=== PATIENT | male | born 1955 | race Caucasian/White ===

== ENCOUNTER → 2021-02-09 | Outpatient (CLI) | payer MEDICARE, SELFPAY ==
[2021-02-09 22:31] LABS: Absolute Lymphocyte Count 0.95 X10^3/uL (0.83-4.51); Absolute Neutrophil Count 4.9 X10^3/uL (2.0-7.7); Basophil# 0.02 X10^3/uL; Basophil% 0.3 % (0-1); Eosinophils% 4.5 % (0-5); Hematocrit 34.6 % (40-54); Hemoglobin 11.2 g/dL (13.0-16.5); Lymphocyte # 0.95 X10^3/ul (0.83-4.51); Lymphocyte % 14.1 % (19-41); Mean Corp Hgb Conc 32.4 g/dL (32-36); Mean Corpuscular Hgb 26.6 pg (27.0-32.0); Mean Corpuscular Volume 82.2 fL (80-94); Mean Platelet Vol. 9.3 fl (6.2-12.0); Monocyte# 0.57 X10^3/uL; Monocyte% 8.5 % (0-10); NRBC Flagged by Analyzer 0 % (0-5); Neutrophil # 4.85 X10^3/uL (2.7-7.7); Neutrophil % 71.9 % (47-70); Platelet Count 476 K/mm3 (150-450); RBC Distribution Width CV 14.5 % (11.6-14.6); RBC Distribution Width SD 43.6 fl (35.1-43.9); Red Blood Count 4.21 M/mm3 (4.6-6.2); White Blood Count 6.7 K/mm3 (4.4-11.0)
[2021-02-09 22:51] LABS: ALB/GLOB Ratio 0.7 RATIO (0.9-2.4); AST(SGOT) 54 U/L (15-37); Alanine Aminotransfer ALT/SGPT 54 U/L (16-61); Albumin, Serum 3.1 g/dL (3.2-5.0); Alkaline Phosphatase 80 U/L (45-117); Anion Gap 10 (5-15); BUN 19 mg/dL (7-18); BUN/Creat Ratio 13.9 RATIO (10-20); Calcium,Total 9.2 mg/dL (8.5-10.1); Chloride 100 mmol/L (98-107); Cholesterol 92 mg/dL (200); Creatinine, Serum 1.37 mg/dL (0.70-1.30); EST Glomerular Filtration Rate 55 mL/min (>60); Est Glom Filt Rate - Afr Amer 67 mL/min (>60); Globulin 4.6 g/dL (2.2-4.2); Glucose 105 mg/dL (74-106); High Density Lipoprotein 28 mg/dL; Potassium 4.7 mmol/L (3.5-5.1); Protein, Total 7.7 g/dL (6.4-8.2); Sodium Level 133 mmol/L (136-145); Thyroid Stim Hormone (TSH) 4.94 uIU/mL (0.358-3.74); Triglycerides 107 mg/dL; Very Low Density Lipoprotein 21 mg/dL (5-40)
[2021-02-09 22:57] LABS: Hemoglobin A1c 6.1 % (3.8-5.6)
[2021-02-11 16:09] LABS: Endomysial Antibody IgA Negative (Negative)
[2021-02-11 16:48] LABS: Deamidated Gliadin IgA 5 units (0-19); Deamidated Gliadin IgG 2 units (0-19); Immunoglobulin A 218 mg/dL (61-437); t-Transglutaminase IgA <2 U/mL (0-3)
== END | disposition home or self-care (01) ==
PROVIDERS: PCP Nurse Practitioner; Referring Provider Nurse Practitioner; Visit Provider Nurse Practitioner
DX: D64.9 Anemia, unspecified (principal); R63.4 Abnormal weight loss; R06.02 Shortness of breath; I10 Essential (primary) hypertension; R10.13 Epigastric pain; R10.30 Lower abdominal pain, unspecified; R63.1 Polydipsia; Z79.899 Other long term (current) drug therapy
CPT/HCPCS: 80053; 80061; 82784; 83036; 83516; 84443; 85025; 86255

== ENCOUNTER → 2021-03-02 | Outpatient (CLI) | payer MEDICARE, SELFPAY ==
[2021-03-02 23:32] LABS: Absolute Lymphocyte Count 0.96 X10^3/uL (0.83-4.51); Absolute Neutrophil Count 3.8 X10^3/uL (2.0-7.7); Basophil# 0.02 X10^3/uL; Basophil% 0.4 % (0-1); Eosinophil# 0.18 X10^3/uL; Eosinophils% 3.2 % (0-5); Hematocrit 35.4 % (40-54); Hemoglobin 11.8 g/dL (13.0-16.5); Lymphocyte # 0.96 X10^3/ul (0.83-4.51); Lymphocyte % 17.2 % (19-41); Mean Corp Hgb Conc 33.3 g/dL (32-36); Mean Corpuscular Hgb 27.3 pg (27.0-32.0); Mean Corpuscular Volume 81.8 fL (80-94); Mean Platelet Vol. 9.4 fl (6.2-12.0); Monocyte# 0.55 X10^3/uL; Monocyte% 9.9 % (0-10); NRBC Flagged by Analyzer 0 % (0-5); Neutrophil # 3.84 X10^3/uL (2.7-7.7); Neutrophil % 68.8 % (47-70); Platelet Count 480 K/mm3 (150-450); RBC Distribution Width CV 14.9 % (11.6-14.6); RBC Distribution Width SD 44.2 fl (35.1-43.9); Red Blood Count 4.33 M/mm3 (4.6-6.2); White Blood Count 5.6 K/mm3 (4.4-11.0)
[2021-03-02 23:38] LABS: ALB/GLOB Ratio 0.6 RATIO (0.9-2.4); AST(SGOT) 52 U/L (15-37); Alanine Aminotransfer ALT/SGPT 80 U/L (16-61); Albumin, Serum 2.9 g/dL (3.2-5.0); Alkaline Phosphatase 125 U/L (45-117); Anion Gap 9 (5-15); BUN 17 mg/dL (7-18); CRP 7.05 mg/L (0.0-3.0); Calcium,Total 9.1 mg/dL (8.5-10.1); Chloride 103 mmol/L (98-107); EST Glomerular Filtration Rate 79 mL/min (>60); Est Glom Filt Rate - Afr Amer 96 mL/min (>60); Globulin 4.5 g/dL (2.2-4.2); Glucose 90 mg/dL (74-106); Potassium 4.6 mmol/L (3.5-5.1); Protein, Total 7.4 g/dL (6.4-8.2); Sodium Level 137 mmol/L (136-145); T4 Free Direct 1.31 ng/dL (0.76-1.46); Thyroid Stim Hormone (TSH) 2.44 uIU/mL (0.358-3.74)
[2021-03-03 07:53] LABS: PTHIN 24.3 pg/mL (18.4-80.1)
[2021-03-04 15:08] LABS: ANTINUCLEAR ANTIBODIES DIRECT Positive (Negative); Anti-Centromere B Ab <0.2 AI (0.0-0.9); Anti-Chromatin <0.2 AI (0.0-0.9); Anti-Jo <0.2 AI (0.0-0.9); Anti-Scleroderma-70 AB <0.2 AI (0.0-0.9); RNP Ab 0.2 AI (0.0-0.9); SJOGREN'S Anti-SS-A test 6.1 AI (0.0-0.9); SJOGREN'S Anti-SS-B test < 0.2 AI (0.0-0.9); Smith Ab <0.2 AI (0.0-0.9)
[2021-03-04 16:06] LABS: Anti-dsDNA Ab 2 IU/mL (0-9)
== END | disposition home or self-care (01) ==
PROVIDERS: PCP Nurse Practitioner; Referring Provider Nurse Practitioner; Visit Provider Nurse Practitioner
DX: I10 Essential (primary) hypertension (principal); M54.2 Cervicalgia; E03.9 Hypothyroidism, unspecified; D64.9 Anemia, unspecified
CPT/HCPCS: 80053; 83970; 84439; 84443; 85025; 86038; 86140; 86225; 86235; 86431

== ENCOUNTER → 2021-04-16 17:51 | Outpatient (CLI) | payer MEDICARE, MEDICAID, SELFPAY ==
--- NOTE | 2021-04-16 17:52 | MRI_ITS ---
EXAM: MR CERVICAL SPINE WITHOUT INTRAVENOUS CONTRAST CLINICAL INDICATION: cervical pain TECHNIQUE: Multiplanar and multisequence MR images of the cervical spine without intravenous contrast were performed. This report was created using [email or web address] report [employer] technology. COMPARISON: None. FINDINGS: VERTEBRAE: Loss of intervertebral disc height. There is endplate spondylosis of the vertebral body. Normal central canal and intervertebral neuroforamina. There is bilateral facet arthropathy. C3-4: Loss of intervertebral disc height. There is endplate spondylosis of the vertebral body. Normal central canal and intervertebral neuroforamina. There is bilateral facet arthropathy. Posterior disc bulge osteophyte complex. C5-6: Loss of intervertebral disc height. There is endplate spondylosis of the vertebral body. Normal central canal and intervertebral neuroforamina. There is bilateral facet arthropathy. Posterior disc bulge osteophyte complex. C6-7: Loss of intervertebral disc height. There is endplate spondylosis of the vertebral body. Normal central canal and intervertebral neuroforamina. There is bilateral facet arthropathy. Posterior disc bulge osteophyte complex. SPINAL CORD: Unremarkable in signal and morphology. SOFT TISSUES: Unremarkable. No prevertebral soft tissue swelling. LYMPH NODES: Unremarkable. There is no cervical adenopathy. DISCS/SPINAL CANAL/NEURAL FORAMINA: C7-T1: Loss of intervertebral disc height. There is endplate spondylosis of the vertebral body. Narrowing of the bilateral intervertebral neuroforamina. There is bilateral facet arthropathy. Grade 1 anterolisthesis of C7 on T1. Distance measures 3 mm. MRI/Spine Cervical (Routine) IMPRESSION: Multilevel degenerative findings in the cervical spine. Electronically Signed: Alhaji Valladares MD at 19:38 EST , Service support ,
== END ==
PROVIDERS: PCP Nurse Practitioner; Referring Provider Orthopaedic Surgery; Visit Provider Orthopaedic Surgery
DX: M47.22 Other spondylosis with radiculopathy, cervical region (principal)
CPT/HCPCS: 72141

== ENCOUNTER 2021-05-28 22:28 | Outpatient (CLI) | payer MEDICARE, MEDICAID, SELFPAY | END 2021-05-28 23:59 | disposition short-term general hospital (02) | LOC: LABSPEC 22:32 | PROVIDERS: PCP Nurse Practitioner; Visit Provider Nurse Practitioner | DX: E03.9 Hypothyroidism, unspecified (principal) | CPT/HCPCS: 84443 ==

== ENCOUNTER 2021-06-08 14:05 | Outpatient (CLI) | payer MEDICARE, MEDICAID, SELFPAY ==
--- NOTE | 2021-06-08 14:09 | RAD_ITS ---
STUDY: X-RAY - LUMBAR SPINE REASON FOR EXAM: Male, 65 years old. BACK PAIN/LEG PAIN TECHNIQUE: 2 view(s) of the lumbar spine were obtained. COMPARISON: None FINDINGS: Normal lumbar lordosis. There is a mild dextroscoliosis of the lumbar spine. There is a normal alignment of the vertebrae. There is multilevel endplate spondylosis of the lumbar vertebrae. There is multi-level degenerative disc disease with multi-level disc space narrowing. There is atherosclerotic calcification of the abdominal aorta without a demonstrated aneurysm. RAD/Lumbar Spine 2 or 3 Views IMPRESSION: Degenerative changes of the spine, as detailed above. Electronically Signed: Raymundo Joaquin MD at 15:54 EST ,
== END 2021-06-08 23:59 | disposition short-term general hospital (02) ==
LOC: RAD 14:08
PROVIDERS: PCP Nurse Practitioner; Referring Provider Anesthesiology Pain Medicine; Visit Provider Anesthesiology Pain Medicine
DX: M54.9 Dorsalgia, unspecified (principal); M79.606 Pain in leg, unspecified
CPT/HCPCS: 72100

== ENCOUNTER 2021-07-20 13:35 | Emergency (ER) | payer MEDICARE, MEDICAID, SELFPAY ==
[2021-07-20 13:36] VITALS: BP 116/100; PULSE 96; RESP 17; TEMP 36.1; O2SAT 97; BMI 25.8
--- NOTE | 2021-07-20 14:57 | US_ITS ---
INDICATION: Left testicular tender mass upper pole EXAMINATION: Ultrasound US Scrotum (Contents) TECHNIQUE: Realtime ultrasound of the testicles was performed with grayscale, Color Doppler and spectral Doppler analysis. COMPARISON: None. FINDINGS: RIGHT: TESTIS: 4.3 x 2.4 x 3.1 cm. Normal in size and echotexture, without focal lesion. COLOR DOPPLER: Normal arterial flow present in the testicle with monophasic waveforms. EPIDIDYMIS: 0.9 x 0.7 x 1.2 cm. Normal in size and echotexture, without focal lesion. [Normal color Doppler flow pattern in the epididymis. HYDROCELE: None. VARICOCELE: None. LEFT: TESTIS: 3.6 x 2.8 x 2.8 cm. Normal in size and echotexture, without focal lesion. COLOR DOPPLER: Normal arterial flow present in the testicle with monophasic waveforms. EPIDIDYMIS: 1.5 x 1.9 x 1.3 cm. Slightly asymmetrically enlarged when compared to the right. [Mild increased vascularity. 0.9 cm left epididymal head cyst. HYDROCELE: Small left-sided hydrocele. VARICOCELE: None. US/Testicular with Arterial Flow IMPRESSION: 1. Findings suggestive of left-sided epididymitis. 2. 0.9 cm left epididymal head cyst. 3. Small left-sided hydrocele, likely reactive. Electronically Signed: Jorge Carrera, at 16:05 EDT ,
--- NOTE | 2021-07-20 14:58 | EDS_ITS ---
HPI History of Present Illness Chief Complaint: Male Pain/Injury Informant: patient Narrative Narrative: Patient presents with a hard tender spot on his left testicle. He thinks is been hurting for about a week. But he has noticed the spot only a couple days. Nothing makes it better or worse. Patient does have frequent nocturia but this is not new or different in any way. He has no dysuria urgency or blood in the urine. He gets some lower abdominal cramping and pain but has been getting this for 1 to 2 years. It is not present now. It has not changed recently. He has had colonoscopy and endoscopy. Last for about a year ago. He has had scans and blood work. No ones ever found the source of that. He also has frequent lower back pain but is not on any routine pain meds. [facility] Medical History Abnormal colonoscopy Anemia COPD exacerbation Diverticulitis Hypertension Leg cramps Osteoarthritis of both shoulders Home Medications hydroxychloroquine 200 mg tablet 200 mg PO BID #60 tab 03/05/21 [Rx Last Taken Unknown] losartan 100 mg tablet 100 mg PO DAILY 05/28/21 [History Last Taken Unknown] levothyroxine 75 mcg tablet 75 mcg PO QDAY #90 tab 05/29/21 [Rx Last Taken Unknown] budesonide 160 mcg-glycopyr 9 mcg-formot 4.8 mcg/actuation HFA inhaler 2 inh I NHALATION BID #10.7 g 06/01/21 [Rx Last Taken Unknown] albuterol sulfate 90 mcg/actuation aerosol inhaler 2 puff INHALATION Q4H PRN #8.5 g 06/02/21 [Rx Last Taken Unknown] prednisone 10 mg tablet 20 mg PO BID PRN 4 Days #30 tab 06/23/21 [Rx Last Taken Unknown] doxycycline monohydrate 100 mg PO BID #20 cap 07/20/21 [Rx Last Taken Unknown] tramadol 50 mg PO Q6H PRN 3 Days #10 tab 07/20/21 [Rx Last Taken Unknown] Allergy/AdvReac Type Severity Reaction Status Date / Time No Known Allergies Allergy Verified 07/20/21 13:35 Family History Father , 70,s Lung cancer Mother , 60,s CVA (cerebral vascular accident) Surgical History History of endoscopy Social History Smoking Status: Former smoker quit date: 03/08/18 alcohol intake: current details: social substance use type: does not use ROS ROS ED Constitutional Constitutional ED: Denies chills or fever(s) ENT ENT ED: Denies rhinorrhea or sore throat Cardiovascular Cardiovascular: Denies chest pain or palpitations Respiratory/Chest Respiratory/Chest: Denies cough or dyspnea Gastrointestinal Gastrointestinal: Denies diarrhea, melena, nausea or vomiting Genitourinary Genitourinary ED: Reports other Details: See history of present illness. ; Denies dysuria or hematuria Musculoskeletal Musculoskeletal: Reports back pain Integumentary Denies rash Neurologic Neurologic: Denies headache(s), paresthesias or weakness Endocrine Endocrinology: Denies polydipsia or polyuria Hematologic/Lymphatic Hematologic/Lymphatic: Denies easy bleeding or easy bruising Allergic/Immunologic Allergic/Immunologic ED: Denies urticaria EXAM Physical Exam Const Vital Signs: 07/20/21 13:36 Temperature 96.9 F L Temperature Source Oral Pulse Rate 96 Respiratory Rate 17 Blood Pressure 116/100 H Blood Pressure Mean 105 Pulse Ox 97 Oxygen Delivery Method Room Air Positive well nourished and well developed General Appearance ED: well developed and NAD HEENT Reports moist mucous membranes Eyes General Eye ED: Negative for pale conjunctiva or scleral icterus Neck no JVD Resp normal respiratory effort and clear to auscultation bilaterally Cardio regular rate and regular rhythm GI non-tender, non-distended and no masses GI Narrative: Abdomen is overall quite benign. Although he has pain that radiates into the left inguinal region there is no tenderness or fullness there. No sign of hernia. Auscultation: normoactive bowel sounds; Negative for hyperactive bowel sounds or hypoactive bowel sounds Palpation: soft Rectal Exam: Negative for tenderness Narrative: exam looks normal from the outside. Testicle and epididymis do not seem enlarged. But there is a firm hard area about a centimeter around on the upper portion of the left testicle. Penis: normal penis Back/Spine no CVA tenderness Extremity normal to inspection General Extremety ED: Negative for edema General Extremity: Negative for edema Neuro oriented x3 Sensorium / Orientation: alert Psych mental status grossly normal Skin Rashes: no rashes MDM MDM MDM Narrative Medical decision making narrative: Patient's urinalysis shows no white cells or red cells. It is overall clear. Ultrasound showed some epididymitis and a epididymal cyst that is likely what I am feeling. We will treat the patient for this. We discussed follow-up including with urology. We discussed reasons to return. Lab Data Attestation: I reviewed the patient's lab results. Labs: Laboratory Results - last 24 hr 07/20/21 14:45 Urine Color Vandana Urine Clarity Clear Urine pH 6.5 Ur Specific Letha 1.015 Urine Protein 30 H Urine Glucose (UA) Normal Urine Ketones 5 H Urine Occult Blood Negative Urine Nitrite Negative Urine Bilirubin 1 H Urine Urobilinogen 1 H Ur Leukocyte Esterase 25 H Urine RBC 0 SEEN Urine WBC 0-5 SEEN Ur Squamous Epith Cells 0-5 SEEN Urine Bacteria 1+ Urine Mucus 0 SEEN Radiography Diagnostic Testing: Clinical Impression(s) from Imaging Studies Testicular Ultrasound 07/20/21 14:57 IMPRESSION: 1. Findings suggestive of left-sided epididymitis. 2. 0.9 cm left epididymal head cyst. 3. Small left-sided hydrocele, likely reactive. Electronically Signed: Jorge Carrera, at 16:05 EDT , Discharge Plan Triage Chief Complaint: Male Pain/Injury ED Provider: Molina Foote Dx/Rx/DC Orders Clinical Impression: Epididymitis, left Instructions: ED Epididymitis Prescriptions: New tramadol 50 mg tablet 50 mg PO Q6H PRN (Reason: pain) 3 Days Qty: 10 RF: 0 doxycycline monohydrate 100 MG capsule 100 mg PO BID Qty: 20 RF: 0 No Action losartan 100 mg tablet 100 mg PO DAILY RF: 0 levothyroxine 75 mcg tablet 75 mcg PO QDAY Qty: 90 RF: 3 Breztri Aerosphere 160-9-4.8 mcg/actuation HFA aerosol inhaler 2 inh inhalation BID Qty: 10.7 RF: 12 hydroxychloroquine 200 mg tablet 200 mg PO BID Qty: 60 RF: 12 albuterol sulfate [ProAir HFA] 90 mcg/actuation HFA aerosol inhaler 2 puff inhalation Q4H PRN (Reason: shortness of breath or wheezing) Qty: 8.5 RF: 12 prednisone 10 mg tablet 20 mg PO BID PRN (Reason: rash) 4 Days Qty: 30 RF: 1 Primary Care Provider: Sabrina Zavala NP Referrals: Sabrina Zavala NP, DIRECTOR OF CASINO-[facility] [Primary Care Provider] - Jerome Sutton MD [STAFF PHYSICIAN] - 1 Week Disposition Disposition: Home, Self Care
[2021-07-20 15:03] LABS: Mucous, Urine 0 SEEN /hpf (<or=2+); Red Blood Cells-Urine 0 SEEN /hpf (0-5)
[2021-07-20 15:11] LABS: Color, Urine Amber (Yellow); Glucose, Dipstick Normal (Normal); Ketone-Dipstick 5 mg/dl (Negative); Leukocyte Esterase-Dipstick 25 /ul (Negative); Nitrite-Dipstick Negative (Negative); Occult Blood-Urine Negative /ul (Negative); Protein-Dipstick 30 mg/dl (Negative); Specific Gravity, Urine 1.015 (1.002-1.030); Urine Clarity Clear (Clear); Urine Urobilinogen 1 mg/dl (Normal); Urine pH 6.5 (5.0 - 8.0)
[2021-07-20 15:12] LABS: Urine Bilirubin Dipstick 1 mg/dL (Negative)
[2021-07-20 15:20] LABS: Bacteria 1+ /hpf (None Seen); Squamous Epithelial Cells - UA 0-5 SEEN /hpf (0-5); White Blood Cells 0-5 SEEN /hpf (0-5)
== END 2021-07-20 17:18 | disposition home or self-care (01) ==
PROVIDERS: Emergency Provider Emergency Medicine; PCP Nurse Practitioner; Visit Provider Emergency Medicine
DX: N45.1 Epididymitis (principal); J44.9 Chronic obstructive pulmonary disease, unspecified; I10 Essential (primary) hypertension; R10.30 Lower abdominal pain, unspecified; M19.90 Unspecified osteoarthritis, unspecified site; Z87.891 Personal history of nicotine dependence
CPT/HCPCS: 76870; 81001; 93976; 99282

== ENCOUNTER 2021-08-25 13:59 | Outpatient (CLI) | payer MEDICARE, MEDICAID, SELFPAY ==
[2021-08-25 14:16] LABS: Absolute Lymphocyte Count 0.81 X10^3/uL (0.83-4.51); Absolute Neutrophil Count 4.8 X10^3/uL (2.0-7.7); Basophil# 0.03 X10^3/uL; Basophil% 0.5 % (0-1); Eosinophil# 0.05 X10^3/uL; Eosinophils% 0.8 % (0-5); Hematocrit 34.8 % (40-54); Hemoglobin 11.6 g/dL (13.0-16.5); Lymphocyte # 0.81 X10^3/ul (0.83-4.51); Lymphocyte % 12.8 % (19-41); Mean Corp Hgb Conc 33.3 g/dL (32-36); Mean Corpuscular Hgb 28.2 pg (27.0-32.0); Mean Corpuscular Volume 84.7 fL (80-94); Mean Platelet Vol. 9.5 fl (6.2-12.0); Monocyte# 0.66 X10^3/uL; Monocyte% 10.4 % (0-10); NRBC Flagged by Analyzer 0 % (0-5); Neutrophil # 4.75 X10^3/uL (2.7-7.7); Neutrophil % 74.9 % (47-70); Platelet Count 318 K/mm3 (150-450); RBC Distribution Width CV 15.6 % (11.6-14.6); Red Blood Count 4.11 M/mm3 (4.6-6.2); White Blood Count 6.3 K/mm3 (4.4-11.0)
[2021-08-25 14:43] LABS: Ferritin 404 ng/mL (26-388); Iron 58 ug/dL (65-175); Iron Binding Capacity,Total 239 ug/dL (250-450); PERCENT IRON SATURATION 24.3 % (15.0-55.0)
== END 2021-08-25 23:59 | disposition home or self-care (01) ==
LOC: LAB 14:04
PROVIDERS: PCP Nurse Practitioner; Visit Provider Nurse Practitioner Adult Health
DX: K57.92 Diverticulitis of intestine, part unspecified, without perforation or abscess without bleeding (principal); D64.9 Anemia, unspecified; R13.10 Dysphagia, unspecified
CPT/HCPCS: 36415; 82728; 83540; 83550; 85025

== ENCOUNTER → 2021-08-27 | Outpatient (CLI) | payer MEDICARE, MEDICAID, SELFPAY ==
[2021-08-27 21:47] LABS: Absolute Lymphocyte Count 0.72 X10^3/uL (0.83-4.51); Absolute Neutrophil Count 5.4 X10^3/uL (2.0-7.7); Basophil# 0.02 X10^3/uL; Basophil% 0.3 % (0-1); Eosinophil# 0.03 X10^3/uL; Eosinophils% 0.4 % (0-5); Hematocrit 33.3 % (40-54); Hemoglobin 11.1 g/dL (13.0-16.5); Lymphocyte # 0.72 X10^3/ul (0.83-4.51); Lymphocyte % 10.5 % (19-41); Mean Corp Hgb Conc 33.3 g/dL (32-36); Mean Corpuscular Hgb 28.5 pg (27.0-32.0); Mean Corpuscular Volume 85.4 fL (80-94); Mean Platelet Vol. 9.9 fl (6.2-12.0); Monocyte# 0.64 X10^3/uL; Monocyte% 9.3 % (0-10); NRBC Flagged by Analyzer 0 % (0-5); Neutrophil # 5.42 X10^3/uL (2.7-7.7); Neutrophil % 79.1 % (47-70); Platelet Count 305 K/mm3 (150-450); RBC Distribution Width CV 15.3 % (11.6-14.6); RBC Distribution Width SD 47.6 fl (35.1-43.9); White Blood Count 6.9 K/mm3 (4.4-11.0)
[2021-08-27 22:03] LABS: AST(SGOT) 29 U/L (15-37); Alanine Aminotransfer ALT/SGPT 34 U/L (16-61); Albumin, Serum 3.6 g/dL (3.2-5.0); Alkaline Phosphatase 64 U/L (45-117); Anion Gap 7 (5-15); BUN 23 mg/dL (7-18); BUN/Creat Ratio 22.8 RATIO (10-20); Calcium,Total 8.8 mg/dL (8.5-10.1); Chloride 106 mmol/L (98-107); Creatinine, Serum 1.01 mg/dL (0.70-1.30); EST Glomerular Filtration Rate 78 mL/min (>60); Est Glom Filt Rate - Afr Amer 95 mL/min (>60); Globulin 3.6 g/dL (2.2-4.2); Glucose 83 mg/dL (74-106); PSA,Total - Annual Screen 0.79 ng/mL (0.00-4.00); Potassium 4.1 mmol/L (3.5-5.1); Protein, Total 7.2 g/dL (6.4-8.2); Sodium Level 138 mmol/L (136-145)
== END | disposition home or self-care (01) ==
PROVIDERS: PCP Nurse Practitioner; Referring Provider Nurse Practitioner; Visit Provider Nurse Practitioner
DX: R35.0 Frequency of micturition (principal); D64.9 Anemia, unspecified; R80.9 Proteinuria, unspecified; Z12.5 Encounter for screening for malignant neoplasm of prostate
CPT/HCPCS: 80053; 84153; 85025; G0103

== ENCOUNTER → 2021-10-07 | Outpatient (CLI) | payer MEDICARE, MEDICAID, SELFPAY ==
[2021-10-07 21:53] LABS: Absolute Lymphocyte Count 0.78 X10^3/uL (0.83-4.51); Absolute Neutrophil Count 4.5 X10^3/uL (2.0-7.7); Basophil# 0.01 X10^3/uL; Basophil% 0.2 % (0-1); Eosinophils% 1.7 % (0-5); Hematocrit 32.9 % (40-54); Lymphocyte # 0.78 X10^3/ul (0.83-4.51); Lymphocyte % 13.1 % (19-41); Mean Corp Hgb Conc 33.4 g/dL (32-36); Mean Corpuscular Hgb 28.6 pg (27.0-32.0); Mean Corpuscular Volume 85.7 fL (80-94); Mean Platelet Vol. 9.5 fl (6.2-12.0); Monocyte# 0.52 X10^3/uL; Monocyte% 8.7 % (0-10); NRBC Flagged by Analyzer 0 % (0-5); Neutrophil # 4.52 X10^3/uL (2.7-7.7); Neutrophil % 75.8 % (47-70); Platelet Count 360 K/mm3 (150-450); RBC Distribution Width CV 14.6 % (11.6-14.6); RBC Distribution Width SD 45.3 fl (35.1-43.9); Red Blood Count 3.84 M/mm3 (4.6-6.2); Reticulocyte Count 1.54 % (0.5-1.5)
[2021-10-07 22:11] LABS: CRP, High Sensitivity Cardiac 3.71 mg/L
== END | disposition home or self-care (01) ==
PROVIDERS: PCP Nurse Practitioner; Visit Provider Nurse Practitioner
DX: D64.9 Anemia, unspecified (principal); R07.9 Chest pain, unspecified; E03.9 Hypothyroidism, unspecified
CPT/HCPCS: 84443; 85025; 85045; 86141

== ENCOUNTER → 2021-12-09 | Outpatient (CLI) | payer MEDICARE, MEDICAID, SELFPAY ==
[2021-12-09 23:10] LABS: PSA,Total- Diagnostic 0.93 ng/mL (0.0-4.0)
== END | disposition home or self-care (01) ==
PROVIDERS: PCP Nurse Practitioner; Visit Provider Nurse Practitioner
DX: R39.15 Urgency of urination (principal); S30.861S Insect bite (nonvenomous) of abdominal wall, sequela; W57.XXXS Bitten or stung by nonvenomous insect and other nonvenomous arthropods, sequela
CPT/HCPCS: 84153; 87070; 87205

== ENCOUNTER → 2022-03-18 | Outpatient (CLI) | payer MEDICARE, MEDICAID, SELFPAY ==
[2022-03-18 13:25] LABS: CRP 4.39 mg/L (0.0-3.0)
== END | disposition home or self-care (01) ==
LOC: LAB 12:26
PROVIDERS: PCP Nurse Practitioner; Visit Provider Internal Medicine Cardiovascular Disease
DX: I74.9 Embolism and thrombosis of unspecified artery (principal)
CPT/HCPCS: 36415; 86140

== ENCOUNTER → 2022-03-23 | Outpatient (CLI) | payer MEDICARE, MEDICAID, SELFPAY ==
[2022-03-23 17:50] LABS: Anion Gap 7 (5-15); BUN 19 mg/dL (7-18); BUN/Creat Ratio 21.5 RATIO (10-20); Calcium,Total 9.3 mg/dL (8.5-10.1); Chloride 105 mmol/L (98-107); Creatinine, Serum 0.88 mg/dL (0.70-1.30); EST Glomerular Filtration Rate 91 mL/min (>60); Est Glom Filt Rate - Afr Amer 110 mL/min (>60); Glucose 87 mg/dL (74-106); Sodium Level 138 mmol/L (136-145)
== END | disposition home or self-care (01) ==
LOC: LAB 16:13
PROVIDERS: PCP Nurse Practitioner; Visit Provider Internal Medicine Cardiovascular Disease
DX: I74.9 Embolism and thrombosis of unspecified artery (principal); R06.02 Shortness of breath
CPT/HCPCS: 36415; 80048

== ENCOUNTER → 2022-03-26 | Outpatient (CLI) | payer MEDICARE, MEDICAID, SELFPAY | END | disposition home or self-care (01) | PROVIDERS: PCP Nurse Practitioner; Referring Provider Internal Medicine Cardiovascular Disease; Visit Provider Internal Medicine Cardiovascular Disease | DX: R07.9 Chest pain, unspecified (principal); I74.9 Embolism and thrombosis of unspecified artery | CPT/HCPCS: 93225; 93226 ==

== ENCOUNTER → 2022-03-29 | Outpatient (CLI) | payer MEDICARE, MEDICAID, SELFPAY | END | disposition home or self-care (01) | LOC: CVS 05:58 | PROVIDERS: PCP Nurse Practitioner; Visit Provider Internal Medicine Cardiovascular Disease | DX: R94.31 Abnormal electrocardiogram [ECG] [EKG] (principal) | CPT/HCPCS: 78452; 93017; A9500; A4216 ==

== ENCOUNTER 2022-04-05 08:21 | Outpatient (CLI) | payer MEDICARE, MEDICAID, SELFPAY ==
--- NOTE | 2022-03-29 11:17 | STRESSREP_ITS ---
Stress Test Report Date: 03/29/2022 Procedure: Exercise tolerance test Indications: Preop cardiac risk assessment, dyspnea on exertion Consent: Per the patient Procedure: The patient exercised on a Abraham protocol for 5 minutes achieving a peak heart rate of 146 bpm (96% predicted maximal heart rate) with a peak blood pressure 182/74 mmHg and a peak MET capacity of approximately 7 MET's. The baseline ECG demonstrated normal sinus. The peak exercise ECG demonstrated no ischemic changes. There were no cardiac dysrhythmias pretest, during exercise, or recovery. The functional capacity was considered average. The patient had no complaints of chest discomfort during exercise or recovery. The examination was discontinued secondary to target heart rate being achieved. Impression: 1. Technically adequate (percent predicted maximal heart rate greater than 85%) exercise tolerance test 2. Peak exercise ECG with no ischemic changes. 3. There were no cardiac dysrhythmias during exercise or recovery This note was generated with [employer] software. It may contain incorrect words, spelling, and punctuation that were not noted in checking the note before signing.
--- NOTE | 2022-04-05 08:22 | [place]_ITS ---
Reason For Study: Embolism Medication LILLIE probe 6VT-D (SN [id number]) passed without difficulty. No complications were noted. Cetacaine Topical [place] given X3 orally. Versed 2 mg given slow IVP. Fentanyl 50 mcg given slow IVP. Performed a rapid injection of agitated mix of 9 cc saline and 1cc air to assess for atrial septal defect. Left Ventricle Normal LV size. Left ventricular systolic function is normal. The estimated ejection fraction is 60 %. No regional wall motion abnormalities noted. Right Ventricle Normal RV size. Normal systolic function. Atria Normal atrial septum. Normal left atrium. No thrombus is detected in the left atrial appendage. Normal right atrium. Mitral Valve Normal mitral valve. Tricuspid Valve Normal tricuspid valve. Aortic Valve Normal aortic valve. Trisinus/trileaflet aortic valve. Pulmonic Valve Normal pulmonic valve. Vessels Normal aortic root. Normal arch. The pulmonary artery is normal size. Pericardium No pericardial effusion. ECHO/Echo Transesophageal (LILLIE) Interpretation Summary No cardiac source of emboli noted. Normal LV size. Left ventricular systolic function is normal. The estimated ejection fraction is 60 %. Structurally normal valves Ordering Physician: Franchesca Lopez Referring Physician: Sabrina Zavala Performed By: Dania Mnauel, JEANNETTE, RVT
== END 2022-04-05 11:35 | disposition home or self-care (01) ==
PROVIDERS: PCP Nurse Practitioner; Referring Provider Internal Medicine Cardiovascular Disease; Visit Provider Internal Medicine Cardiovascular Disease
DX: Z01.818 Encounter for other preprocedural examination (principal); I74.9 Embolism and thrombosis of unspecified artery
CPT/HCPCS: 87426; 93312; 93320; 93325; C9803; J7040; A4216

== ENCOUNTER → 2022-05-19 | Outpatient (CLI) | payer MEDICARE, MEDICAID, SELFPAY ==
[2022-05-19 22:22] LABS: Absolute Neutrophil Count 4.7 X10^3/uL (2.0-7.7); Basophil# 0.02 X10^3/uL; Basophil% 0.3 % (0-1); Eosinophil# 0.15 X10^3/uL; Eosinophils% 2.5 % (0-5); Hematocrit 35.4 % (40-54); Hemoglobin 11.7 g/dL (13.0-16.5); Lymphocyte % 13.1 % (19-41); Mean Corp Hgb Conc 33.1 g/dL (32-36); Mean Corpuscular Hgb 28.2 pg (27.0-32.0); Mean Corpuscular Volume 85.3 fL (80-94); Mean Platelet Vol. 9.8 fl (6.2-12.0); Monocyte# 0.43 X10^3/uL; NRBC Flagged by Analyzer 0 % (0-5); Neutrophil # 4.69 X10^3/uL (2.7-7.7); Neutrophil % 76.6 % (47-70); Platelet Count 313 K/mm3 (150-450); RBC Distribution Width CV 15.5 % (11.6-14.6); RBC Distribution Width SD 48.4 fl (35.1-43.9); Red Blood Count 4.15 M/mm3 (4.6-6.2); White Blood Count 6.1 K/mm3 (4.4-11.0)
[2022-05-19 22:48] LABS: ALB/GLOB Ratio 0.8 RATIO (0.9-2.4); AST(SGOT) 29 U/L (15-37); Alanine Aminotransfer ALT/SGPT 27 U/L (16-61); Albumin, Serum 3.3 g/dL (3.2-5.0); Alkaline Phosphatase 73 U/L (45-117); Anion Gap 5 (5-15); BUN 18 mg/dL (7-18); BUN/Creat Ratio 19.6 RATIO (10-20); Calcium,Total 8.6 mg/dL (8.5-10.1); Chloride 106 mmol/L (98-107); Cholesterol 166 mg/dL (200); Creatinine, Serum 0.92 mg/dL (0.70-1.30); EST Glomerular Filtration Rate 87 mL/min (>60); Est Glom Filt Rate - Afr Amer 105 mL/min (>60); Glucose 111 mg/dL (74-106); High Density Lipoprotein 41 mg/dL; Potassium 3.8 mmol/L (3.5-5.1); Protein, Total 7.3 g/dL (6.4-8.2); Sodium Level 137 mmol/L (136-145); Triglycerides 204 mg/dL; Very Low Density Lipoprotein 41 mg/dL (5-40)
== END | disposition home or self-care (01) ==
PROVIDERS: PCP Nurse Practitioner; Visit Provider Nurse Practitioner
DX: G47.00 Insomnia, unspecified (principal); M32.9 Systemic lupus erythematosus, unspecified; J44.1 Chronic obstructive pulmonary disease with (acute) exacerbation; D64.9 Anemia, unspecified; E03.9 Hypothyroidism, unspecified
CPT/HCPCS: 80053; 80061; 84443; 85025

== ENCOUNTER → 2022-05-31 | Outpatient (CLI) | payer MEDICARE, MEDICAID, SELFPAY | END | disposition home or self-care (01) | PROVIDERS: PCP Nurse Practitioner; Visit Provider Nurse Practitioner | DX: T81.31XA Disruption of external operation (surgical) wound, not elsewhere classified, initial encounter (principal); X58.XXXA Exposure to other specified factors, initial encounter | CPT/HCPCS: 87070; 87075; 87077; 87186; 87205 ==

== ENCOUNTER → 2022-08-16 | Outpatient (CLI) | payer MEDICARE, SELFPAY ==
[2022-08-16 21:41] LABS: Absolute Lymphocyte Count 0.54 X10^3/uL (0.83-4.51); Absolute Neutrophil Count 8.6 X10^3/uL (2.0-7.7); Basophil# 0.02 X10^3/uL; Basophil% 0.2 % (0-1); Hematocrit 36.5 % (40-54); Hemoglobin 12.1 g/dL (13.0-16.5); Lymphocyte # 0.54 X10^3/ul (0.83-4.51); Lymphocyte % 5.7 % (19-41); Mean Corp Hgb Conc 33.2 g/dL (32-36); Mean Corpuscular Hgb 27.9 pg (27.0-32.0); Mean Corpuscular Volume 84.3 fL (80-94); Mean Platelet Vol. 9.7 fl (6.2-12.0); Monocyte# 0.35 X10^3/uL; Monocyte% 3.7 % (0-10); NRBC Flagged by Analyzer 0 % (0-5); Neutrophil # 8.57 X10^3/uL (2.7-7.7); POSITIVE DIFFERENTIAL YES; Platelet Count 248 K/mm3 (150-450); RBC Distribution Width CV 14.6 % (11.6-14.6); Red Blood Count 4.33 M/mm3 (4.6-6.2); White Blood Count 9.5 K/mm3 (4.4-11.0)
[2022-08-16 21:47] LABS: Differential Indicated SCAN CRITERIA MET
[2022-08-16 22:06] LABS: ALB/GLOB Ratio 0.8 RATIO (0.9-2.4); AST(SGOT) 45 U/L (15-37); Alanine Aminotransfer ALT/SGPT 69 U/L (16-61); Albumin, Serum 3.3 g/dL (3.2-5.0); Alkaline Phosphatase 72 U/L (45-117); Anion Gap 6 (5-15); BUN 27 mg/dL (7-18); BUN/Creat Ratio 22.5 RATIO (10-20); Calcium,Total 9.1 mg/dL (8.5-10.1); Chloride 104 mmol/L (98-107); EST Glomerular Filtration Rate 64 mL/min (>60); Est Glom Filt Rate - Afr Amer 77 mL/min (>60); Globulin 4.3 g/dL (2.2-4.2); Glucose 156 mg/dL (74-106); Potassium 4.2 mmol/L (3.5-5.1); Protein, Total 7.6 g/dL (6.4-8.2); Sodium Level 133 mmol/L (136-145); Thyroid Stim Hormone (TSH) 1.22 uIU/mL (0.358-3.74); Uric Acid 6.4 mg/dL (3.5-7.2)
[2022-08-16 22:20] LABS: Differential Comment SCANNED
[2022-08-17 16:32] LABS: Hemoglobin A1c 6.2 % (3.8-5.6)
== END | disposition home or self-care (01) ==
PROVIDERS: PCP Nurse Practitioner; Visit Provider Nurse Practitioner
DX: R35.0 Frequency of micturition (principal); L08.9 Local infection of the skin and subcutaneous tissue, unspecified; G47.00 Insomnia, unspecified; I10 Essential (primary) hypertension; T14.8XXA Other injury of unspecified body region, initial encounter; R73.9 Hyperglycemia, unspecified; X58.XXXA Exposure to other specified factors, initial encounter
CPT/HCPCS: 80053; 83036; 84443; 84550; 85025; 87086

== ENCOUNTER → 2023-02-24 | Outpatient (CLI) | payer MEDICARE, SELFPAY ==
[2023-02-24 21:23] LABS: Absolute Lymphocyte Count 0.73 X10^3/uL (0.83-4.51); Absolute Neutrophil Count 2.6 X10^3/uL (2.0-7.7); Basophil# 0.01 X10^3/uL; Basophil% 0.3 % (0-1); Eosinophil# 0.09 X10^3/uL; Eosinophils% 2.4 % (0-5); Hematocrit 35.3 % (40-54); Hemoglobin 11.5 g/dL (13.0-16.5); Lymphocyte # 0.73 X10^3/ul (0.83-4.51); Lymphocyte % 19.3 % (19-41); Mean Corp Hgb Conc 32.6 g/dL (32-36); Mean Corpuscular Volume 85.9 fL (80-94); Mean Platelet Vol. 11.1 fl (6.2-12.0); Monocyte# 0.33 X10^3/uL; Monocyte% 8.7 % (0-10); NRBC Flagged by Analyzer 0 % (0-5); Neutrophil % 68.8 % (47-70); Platelet Count 180 K/mm3 (150-450); RBC Distribution Width CV 16.6 % (11.6-14.6); RBC Distribution Width SD 51.2 fl (35.1-43.9); Red Blood Count 4.11 M/mm3 (4.6-6.2); White Blood Count 3.8 K/mm3 (4.4-11.0)
[2023-02-24 21:29] LABS: Erythrocyte Sedimentation Rate 13 mm/hr (0-20)
[2023-02-24 22:23] LABS: ALB/GLOB Ratio 0.6 RATIO (0.9-2.4); AST(SGOT) 67 U/L (15-37); Alanine Aminotransfer ALT/SGPT 43 U/L (16-61); Albumin, Serum 2.9 g/dL (3.2-5.0); Alkaline Phosphatase 67 U/L (45-117); Anion Gap 6 (5-15); BUN 18 mg/dL (7-18); BUN/Creat Ratio 23.7 RATIO (10-20); Calcium,Total 8.4 mg/dL (8.5-10.1); Chloride 106 mmol/L (98-107); Creatinine, Serum 0.76 mg/dL (0.70-1.30); EST Glomerular Filtration Rate 108 mL/min (>60); Est Glom Filt Rate - Afr Amer 131 mL/min (>60); Globulin 4.6 g/dL (2.2-4.2); Glucose 103 mg/dL (74-106); Potassium 4.1 mmol/L (3.5-5.1); Protein, Total 7.5 g/dL (6.4-8.2); Sodium Level 136 mmol/L (136-145); Thyroid Stim Hormone (TSH) 4.42 uIU/mL (0.358-3.74)
[2023-02-24 22:46] LABS: D-Dimer Quantitative (DVT/PE) 4.72 FEU/ug/m (0.27-0.49)
[2023-02-25 07:41] LABS: PTHIN 29.1 pg/mL (18.4-80.1)
[2023-02-28 13:07] LABS: Anti-Centromere B Ab <0.2 AI (0.0-0.9); Anti-Chromatin 0.5 AI (0.0-0.9); Anti-Jo <0.2 AI (0.0-0.9); Anti-Scleroderma-70 AB <0.2 AI (0.0-0.9); Anti-dsDNA Ab 27 IU/mL (0-9); RNP Ab 0.4 AI (0.0-0.9); SJOGREN'S Anti-SS-A test 2.5 AI (0.0-0.9); SJOGREN'S Anti-SS-B test < 0.2 AI (0.0-0.9); Smith Ab <0.2 AI (0.0-0.9)
== END | disposition home or self-care (01) ==
PROVIDERS: PCP Nurse Practitioner; Visit Provider Nurse Practitioner
DX: I10 Essential (primary) hypertension (principal); M06.9 Rheumatoid arthritis, unspecified; I74.9 Embolism and thrombosis of unspecified artery; J44.1 Chronic obstructive pulmonary disease with (acute) exacerbation; I73.00 Raynaud's syndrome without gangrene; R76.8 Other specified abnormal immunological findings in serum; D64.9 Anemia, unspecified; E03.9 Hypothyroidism, unspecified; R63.4 Abnormal weight loss
CPT/HCPCS: 80053; 83970; 84443; 85025; 85379; 85652; 85730; 86225; 86235; 86431

== ENCOUNTER → 2023-03-11 | Outpatient (CLI) | payer MEDICARE, MEDICAID, SELFPAY ==
--- NOTE | 2023-03-11 17:30 | RAD_ITS ---
INDICATION: sob EXAMINATION/TECHNIQUE: X-RAY - XR Chest 2 Views COMPARISON: None. Findings: Frontal and lateral views of the chest. LUNG PARENCHYMA: Diffuse bilateral nodular interstitial process, peripheral predominant. PLEURA: No pleural effusion. No pneumothorax. HEART/GREAT VESSELS: Cardiomediastinal silhouette is unremarkable. BONES: Osseous structures are unremarkable for age. RAD/Chest PA and Lateral IMPRESSION: Diffuse bilateral nodular interstitial process, peripheral predominant, without comparison to document stability. Cannot exclude acute exacerbation of chronic interstitial process. Electronically Signed: Cesar Hyman MD at 4:39 EDT ,
== END | disposition home or self-care (01) ==
LOC: RAD 17:24
PROVIDERS: PCP Nurse Practitioner; Visit Provider Nurse Practitioner
DX: R63.4 Abnormal weight loss (principal); J44.1 Chronic obstructive pulmonary disease with (acute) exacerbation; R91.1 Solitary pulmonary nodule; R06.02 Shortness of breath
CPT/HCPCS: 71046

== ENCOUNTER → 2023-03-23 | Outpatient (CLI) | payer MEDICARE, SELFPAY | END | disposition home or self-care (01) | LOC: LAB 16:21 | PROVIDERS: PCP Nurse Practitioner; Visit Provider Nurse Practitioner | DX: J84.9 Interstitial pulmonary disease, unspecified (principal) | CPT/HCPCS: 87205 ==

== ENCOUNTER → 2023-04-04 | Outpatient (CLI) | payer MEDICARE, MEDICAID, SELFPAY | END | disposition home or self-care (01) | PROVIDERS: PCP Nurse Practitioner; Visit Provider Nurse Practitioner | DX: I73.00 Raynaud's syndrome without gangrene (principal); M32.9 Systemic lupus erythematosus, unspecified | CPT/HCPCS: 87070; 87077; 87186; 87205 ==

== ENCOUNTER → 2023-06-15 | Outpatient (CLI) | payer MEDICARE, MEDICAID, SELFPAY ==
--- OUTSIDE RECORDS SUMMARY | 2023-06-15 21:26 | XMS RPT_ITS | CCD ---
Author Name Unknown Address [email or web address] [place] [address] Organization [facility] Care Team Providers Care Procurement Accountant Name Role Phone SUZIE OJHNSON Unavailable Unavailable ELIZABETHSUZIE Z Unavailable Unavailable BINA, JOHN PAUL Unavailable Unavailable ELIZABETH SUZIE Z Unavailable Unavailable ELIZABETH, SUZIE Z Unavailable Unavailable BINA, JOHN PAUL Unavailable Unavailable BINA, JOHN PAUL Unavailable Unavailable TASHA LECHUGASON P Unavailable Unavailable NAHID LECHUGA P Unavailable Unavailable Esdras Hathaway Primary Care Provider [phone] Lucas OUTSIDE SALES REPRESENTATIVE INSURANCE.Darcie TORO Primary Care Provide r Lucas OUTSIDE SALES REPRESENTATIVE INSURANCE.Darcie TORO Primary Care Provide r Lucas OUTSIDE SALES REPRESENTATIVE INSURANCE.Darcie TORO Primary Care Provide r Esdras Hathaway DO Primary Care Provider GOPAL BARBOZA Attending Unavailable GOPAL BARBOZA Referring Unavailable ESDRAS HATHAWAY Primary Care Unavailable Esdras Hathaway DO Primary Care Provider DARCIE ZAVALA Primary Care Unavailable JONATHAN BOYER Consulting Unavailable LADONNA CUNNINGHAM Attending Unavailable LYN MCDONALD Referring Unavaila LUIS Flores Admitting Unavailable ESAU ZAVALAA L Primary Care Unavailable KENDALL URBAN Attending Unavailable KENDALL URBAN Admitting Unavailable BRAYAN SULLIVAN Consulting Unavailable UNGPRASERT, PATOMPONG Referring UnavailESAU BurgessA L Primary Care Unavailable ALESSANDROSERT, PATOMPONG Attending UnavailLYN Oliveira Attending Unavailable ESAU ZAVALAA L Primary Care Unavailable ALCH CONGREGATION Referring Unavailable LADONNA CUNNINGHAM Referring Unavailable ZAVALA, DARCIE L Primary Care Unavailable ZAVALA, DARCIE L Primary Care Unavailable UNGPRASERT, PATOMPONG Attending Unavailabl e UNGPRASERT, PATOMPONG Referring Unavailabl e ZAVALA, DARCIE L Primary Care Unavailable UNGPRASERT, PATOMPONG Attending Unavailabl e UNGPRASERT, PATOMPONG Referring Unavailabl e ZAVALA, DARCIE L Primary Care Unavailable ZAVALA, DARCIE L Primary Care Unavailable JENNIFER WOLFE Referring Unavailable ZAVALA, DARCIE L Primary Care Unavailable JENNIFER WOLFE Attending Unavailable ZAVALA, DARCIE L Primary Care Unavailable ISABEL HINTON Referring Unavailable ÁLVARO TITUS Attending Unavailabl e ZAVALA, DARCIE L Primary Care Unavailable DEXTER WHITEHEAD Attending Unavailable ZAVALA, DARCIE L Primary Care Unavailable LYN MCDONALD Attending Unavaila ble ZAVALA, DARCIE L Primary Care Unavailable ZAVALA, DARCIE L Referring Unavailable ZAVALA, DARCIE L Primary Care Unavailable UNGPRASERT, PATOMPONG Referring Unavailabl e ZAVALA, DARCIE L Primary Care Unavailable Allergies Allergy Classification Reported Allergen(s) Allergy Type Date of Onset Reaction(s) Facility (1 source) Mometasone Drug Allergy 12-15-2015 [place], [place] (20 sources) Cephalexin; Translations: [CEPHALEXIN] Drug Allergy 05-16-2022 [facility] Medications Current Medications Medication Drug Class(es) Dates Sig (Normalized) Sig (Original) amitriptyline hydrochloride 25 mg oral tablet (1 source) Tricyclic Antidepressant Start: 09-02-2015 take 1 tablet by mouth once daily amitriptyline (ELAVIL) 25 MG tablet Indications: Insomnia, unspecified type Take 1 tablet by mouth nightly 30 tablet 3 09/02/2015 Active amLODIPine 5 mg oral tablet (3 sources) Dihydropyridine Calcium Channel Jessica Start: 11-15-2018 take 1 tablet by mouth once daily amLODIPine (NORVASC) 5 MG tablet Indications: Essential hypertension TAKE 1 TABLET BY MOUTH DAILY 90 tablet 1 11/15/2018 Active Completed/Discontinued Medications Medication Drug Class(es) Dates Sig (Normalized) Sig (Original) acetaminophen 500 mg oral capsule (2 sources) take 1 capsule by mouth every six hours as needed Acetaminophen 500 mg cap 1 capsule as needed Orally every 6 hrs 0 Active Problems Active Problems Problem Classification Problem Date Documented Da te Episodic/Chronic Aortic and peripheral arterial embolism or thrombosis (20 sources) Thromboembolic disorder; Translations: [Embolism and thrombosis of unspecified artery] Onset: 2 09-25-2022 Chronic Aortic; peripheral; and visceral artery aneurysms (1 source) Dilatation of aorta; Translations: [Aortic ectasia, unspecified site] Chronic Cardiac dysrhythmias (20 sources) Atrial fibrillation; Translations: [Unspecified atrial fibrillation] Onset: 3 09-25-2022 Chronic Chronic kidney disease (1 source) Chronic kidney disease stage 4; Translations: [Chronic kidney disease, stage 4 (severe)] 09-10-2022 Chronic Chronic obstructive pulmonary disease and bronchiectasis (20 sources) Chronic obstructive lung disease; Translations: [Chronic obstructive pulmonary disease, unspecified] Onset: 9 06-17-2020 Chronic Diverticulosis and diverticulitis (20 sources) Diverticulitis; Translations: [Diverticulitis of intestine, part unspecified, without perforation or abscess without bleeding] Onset: 1 06-25-2020 Chronic Esophageal disorders (1 source) Gastroesophageal reflux disease without esophagitis; Translations: [Gastro-esophageal reflux disease without esophagitis] Chronic Essential hypertension (20 sources) Essential (primary) hypertension; Translations: [Essential hypertension] Onset: 6 12-15-2015 Chronic Hyperplasia of prostate (20 sources) Benign prostatic hyperplasia; Translations: [Benign prostatic hyperplasia without lower urinary tract symptoms] Onset: 3 09-25-2022 Chronic Immunizations and screening for infectious disease (1 source) Anti-nuclear factor positive; Translations: [Other specified abnormal immunological findings in serum] Episodic Malaise and fatigue (1 source) Other malaise; Translations: [Malaise] Onset: 3 Episodic Medical examination/evaluation (2 sources) Encounter for other preprocedural examination; Translations: [ENCOUNTER OTHER PREPROCEDURAL EXAM] Onset: 8 Episodic Miscellaneous mental health disorders (1 source) Confusional state; Translations: [Confusion] Chronic Osteoarthritis (1 source) Unspecified osteoarthritis, unspecified site; Translations: [UNSPECIFIED OSTEOARTHRITIS UNS SITE] Onset: 8 Chronic Other aftercare (1 source) Other long-term (current) drug therapy; Translations: [OTH DYE WORKER CURRENT DRUG THERAPY] Onset: 8 Episodic Other aftercare (4 sources) Taking high risk medication; Translations: [Other long-term (current) drug therapy] Episodic Other circulatory disease (20 sources) Raynaud's disease; Translations: [Raynaud's syndrome without gangrene] Onset: 3 Chronic Other circulatory disease (3 sources) Arteritis; Translations: [Arteritis, unspecified] Chronic Other circulatory disease (2 sources) Raynaud's syndrome without gangrene; Translations: [Raynaud's syndrome without gangrene] Onset: 3 Chronic Other circulatory disease (2 sources) Arteritis, unspecified; Translations: [Arteritis, unspecified (HCC)] Onset: 3 Chronic Other connective tissue disease (1 source) Bursitis of olecranon of right elbow; Translations: [Olecranon bursitis, right elbow] 12-08-2022 Episodic Other connective tissue disease (1 source) Other infective bursitis, unspecified site; Translations: [Septic bursitis] Onset: 3 Episodic Other connective tissue disease (1 source) Atrophy of muscle of right hand; Translations: [Muscle wasting and atrophy, not elsewhere classified, right hand] 02-11-2023 Episodic Other connective tissue disease (1 source) Weakness of right hand; Translations: [Other symptoms and signs involving the musculoskeletal system] 02-11-2023 Episodic Other gastrointestinal disorders (2 sources) Small bowel bacterial overgrowth syndrome; Translations: [Other specified diseases of intestine] Episodic Other gastrointestinal disorders (2 sources) Alteration in bowel elimination; Translations: [Change in bowel habit] Episodic Other lower respiratory disease (1 source) Pulmonary fibrosis, unspecified; Translations: [Pulmonary fibrosis (HCC)] Onset: 3 Chronic Other nervous system disorders (1 source) Unsteadiness on feet; Translations: [UNSTEADINESS ON FEET] Onset: 8 Episodic Other non-traumatic joint disorders (17 sources) Seronegative arthritis; Translations: [Other specified arthritis, unspecified site] Chronic Other non-traumatic joint disorders (2 sources) Other specified arthritis, unspecified site; Translations: [Seronegative inflammatory arthritis] Onset: 3 Chronic Peripheral and visceral atherosclerosis (2 sources) Peripheral vascular disease, unspecified; Translations: [Peripheral vascular disease, unspecified] Onset: 3 04-07-2023 Chronic Phlebitis; thrombophlebitis and thromboembolism (1 source) Acute embolism and thrombosis of left popliteal vein; Translations: [Acute deep vein thrombosis (DVT) of popliteal vein of left lower extremity (HCC)] Onset: 3 Episodic Pneumonia (except that caused by tuberculosis or sexually transmitted disease) (1 source) Other pneumonia, unspecified organism; Translations: [Other pneumonia, unspecified organism] Onset: 3 Episodic Residual codes; unclassified (1 source) Localized edema; Translations: [Edema of lower extremity] Onset: 4 Episodic Rheumatoid arthritis and related disease (20 sources) Rheumatoid arthritis; Translations: [Rheumatoid arthritis, unspecified] Onset: 3 09-25-2022 Chronic Spondylosis; intervertebral disc disorders; other back problems (20 sources) Other spondylosis with radiculopathy, lumbar region; Translations: [Degeneration of cervical intervertebral disc] Onset: 6 12-15-2015 Chronic Spondylosis; intervertebral disc disorders; other back problems (20 sources) Neck pain; Translations: [Chronic low back pain] Onset: 6 12-15-2015 Episodic Substance-related disorders (20 sources) Nicotine dependence, cigarettes, uncomplicated; Translations: [Smoker] Onset: 8 06-17-2020 Chronic Systemic lupus erythematosus and connective tissue disorders (20 sources) Systemic lupus erythematosus-related syndrome; Translations: [Systemic lupus erythematosus, unspecified] Onset: 2 09-25-2022 Chronic Thyroid disorders (20 sources) Hypothyroidism; Translations: [Hypothyroidism, unspecified] Onset: 3 09-25-2022 Chronic Unclassified (1 source) Tobacco use; Translations: [TOBACCO USE] Onset: 8 Episodic Unclassified (3 sources) Spinal stenosis, lumbar region with neurogenic claudication; Translations: [SPINAL STENOSIS LUMBAR REGION NC] Onset: 8 Unclassified (1 source) KAMLA Positive F/U Onset: Past or Other Problems Problem Classification Problem Date Documented Date Episodic/Chronic Deficiency and other anemia (20 sources) Anemia; Translations: [Anemia, unspecified] Onset: 09-18-2015 09-18-2015 Episodic Deficiency and other anemia (4 sources) Normocytic normochromic anemia; Translations: [Anemia, unspecified] Onset: 01-27-2020 02-21-2022 Episodic Fluid and electrolyte disorders (20 sources) Hyponatremia; Translations: [Hypo-osmolality and hyponatremia] Onset: 09-25-2022 09-25-2022 Episodic Nonspecific chest pain (20 sources) Precordial pain; Translations: [Precordial pain] Onset: 09-26-2022 09-26-2022 Episodic Other circulatory disease (20 sources) Low blood pressure; Translations: [Hypotension, unspecified] Onset: 09-25-2022 09-25-2022 Episodic Other lower respiratory disease (4 sources) Multiple nodules of lung; Translations: [Other nonspecific abnormal finding of lung field] Onset: 04-09-2019 02-21-2022 Episodic Other lower respiratory disease (2 sources) Shortness of breath; Translations: [SOB (shortness of breath)] Onset: 09-07-2022 Episodic Other non-traumatic joint disorders (15 sources) Pain in elbow; Translations: [Pain in right elbow] Onset: 12-03-2022 12-03-2022 Episodic Residual codes; unclassified (16 sources) History of decompression of ulnar nerve; Translations: [Other specified postprocedural states] Onset: 12-03-2022 12-03-2022 Episodic Skin and subcutaneous tissue infections (15 sources) Cellulitis; Translations: [Cellulitis, unspecified] Onset: 12-02-2022 12-03-2022 Episodic Unclassified (20 sources) Other nonspecific abnormal finding of lung field; Translations: [Hormone level - finding] Onset: 11-23-2017 09-25-2022 Episodic Results Test Name Value Interpretation Reference Range Facil ity Vital Signs Date Time Vital Sign Value Performing Clinician Frandy russell 04-07-2023 11:14-0500 Diastolic blood pressure 88 mm[Hg] Jennifer Wolfe DO Work Phone: [facility] 04-07-2023 11:14-0500 Heart rate 93 /min Jennifer Wolfe DO Work Phone: [facility] 04-07-2023 11:14-0500 SaO2% (BldA) [Mass fraction] 99 % Jennifer Wolfe DO Work Phone: [facility] 04-07-2023 11:14-0500 Systolic blood pressure 150 mm[Hg] Jennifer Wolfe DO Work Phone: [facility] 02-10-2023 12:50-0400 Body height 182.9 cm Álvaro Titus MD Work Phone: [facility] 02-10-2023 12:50-0400 Body weight 75.3 kg Álvaro Titus MD Work Phone: [facility] 02-10-2023 12:50-0400 Diastolic blood pressure 83 mm[Hg] Álvaro Titus MD Work Phone: [facility] 02-10-2023 12:50-0400 Heart rate 100 /min Álvaro Titus MD Work Phone: [facility] 02-10-2023 12:50-0400 SaO2% (BldA) [Mass fraction] 97 % Álvaro Titus MD Work Phone: [facility] 02-10-2023 12:50-0400 Systolic blood pressure 120 mm[Hg] Álvaro Titus MD Work Phone: [facility] 12-06-2022 15:56-0400 Body temperature 98.2 [degF] Kellen Meredith MD Work Phone: [facility] 12-06-2022 15:56-0400 Body weight 76.2 kg Kellen Meredith MD Work Phone: [facility] 12-06-2022 15:56-0400 Diastolic blood pressure 68 mm[Hg] Kellen Meredith MD Work Phone: [facility] 12-06-2022 15:56-0400 Systolic blood pressure 104 mm[Hg] Kellen Meredith MD Work Phone: [facility] 10-22-2022 13:59-0400 Body height 182.9 cm Lyn Alicea OUTSIDE SALES REPRESENTATIVE INSURANCE.BASIN OPERATOR Work Phone: [facility] 10-22-2022 13:59-0400 Body weight 81.19 kg Lyn Alicea OUTSIDE SALES REPRESENTATIVE INSURANCE.BASIN OPERATOR Work Phone: [facility] 10-22-2022 13:59-0400 Diastolic blood pressure 70 mm[Hg] Lyn Alicea OUTSIDE SALES REPRESENTATIVE INSURANCE.BASIN OPERATOR Work Phone: [facility] 10-22-2022 13:59-0400 Heart rate 92 /min Lyn Alicea OUTSIDE SALES REPRESENTATIVE INSURANCE.BASIN OPERATOR Work Phone: [facility] 10-22-2022 13:59-0400 SaO2% (BldA) [Mass fraction] 96 % Lyn Alicea OUTSIDE SALES REPRESENTATIVE INSURANCE.BASIN OPERATOR Work Phone: [facility] 10-22-2022 13:59-0400 Systolic blood pressure 132 mm[Hg] Lyn Alicea OUTSIDE SALES REPRESENTATIVE INSURANCE.BASIN OPERATOR Work Phone: [facility] 08-17-2022 14:42-0400 Body weight 81.19 kg Kellen Meredith MD Work Phone: [facility] 12-09-2021 11:05-0400 Body height 182.9 cm María Elena Chilo PA-C Work Phone: [facility] 12-09-2021 11:05-0400 Body weight 81.19 kg María Elena Chilo PA-C Work Phone: [facility] 12-09-2021 11:05-0400 Diastolic blood pressure 70 mm[Hg] María Elena Chilo PA-C Work Phone: [facility] 12-09-2021 11:05-0400 Heart rate 100 /min María Elena Chilo PA-C Work Phone: [facility] 12-09-2021 11:05-0400 Systolic blood pressure 142 mm[Hg] María Elena Woo PA-C Work Phone: [facility] 10-15-2021 10:41-0400 Body height 182.9 cm Asia Staley MD Work Phone: [facility] 10-15-2021 10:41-0400 Body weight 84.46 kg Asia Staley MD Work Phone: [facility] 10-15-2021 10:41-0400 Diastolic blood pressure 85 mm[Hg] Asia Staley MD Work Phone: [facility] 10-15-2021 10:41-0400 Heart rate 89 /min Asia Staley MD Work Phone: [facility] 10-15-2021 10:41-0400 SaO2% (BldA) [Mass fraction] 98 % Asia Staley MD Work Phone: [facility] 10-15-2021 10:41-0400 Systolic blood pressure 133 mm[Hg] Asia Staley MD Work Phone: [facility] Encounters Encounter Date Encounter Type Care Provider Facility Start: 06-12-2023 End: 06-12-2023 Emergency department patient visit DEXTER TXEDDIE Facility:[facility] Start: 05-03-2023 End: 05-05-2023 ambulatory DARCIE ZAVALA Facility:[facility] Start: 04-20-2023 End: 04-21-2023 ambulatory JENNIFER WOLFE Facility:[facility] Start: 04-15-2023 Telephone encounter Álvaro Titus MD Work Phone: Neurology Procedures Date Procedure Procedure Detail Performing Clinician Start: 09-13-2022 Non-invasive physiol ogic study extremity 3 levls Gopal Barboza MD Work Phone: Start: 12-09-2021 Radiologic exam abdo men 2 views María Elena Woo PA-C Work Phone: Start: 02-09-2021 Lipid 1996 panel - S fernando or Plasma Kellen Meredith MD Work Phone: Start: 06-25-2020 [facility] Asia Molina MD Work Phone: Start: 01-29-2019 Mri brain brain stem w/o w/contrast material Esdras Hathaway Work Phone: Start: 07-26-2018 Adult depression scr eening assessment Asia Staley MD Work Phone: Plan of Treatment Date Care Activity Detail Author Start: 01-01-2032 Pneumococcal 65+ yea rs Vaccine (1 of 2 - PCV13) Pneumococcal 65+ years Vaccine (1 of 2 - PCV13) [place] Immunizations Immunization Date Immunization Notes Care Provider [facility] 01-25-2020 influenza, high-dose , quadrivalent vaccine (FLUZONE HIGH DOSE QUADRIVALENT) Asia Staley MD Work Phone: [facility] 01-25-2020 influenza virus vacc ine, unspecified formulation Gopal Barboza Jr., MD Work Phone: [facility] 02-27-2019 influenza, high dose seasonal, preservative-free Asia Staley MD Work Phone: [facility] Payers Date Payer Category Payer Medicaid MEDICAID [facility] MEDICAID [id number] 2021-Present [phone] [address] [place] [address] Medicaid [id number] 2020 Medicare [facility] MEDICARE [facility] DUAL COMPLETE HMO SNP [id number] 2020-Present [phone] [address] [place] [address] Medicare [id number] 2020 Medicare [id number] 2020 Medicare [id number] 2018 Medicare [facility] MEDICARE [employer] DUAL COMPLETE xxxxxxxxx 2018-Present xxxxxxxxx [id number] 2017 Medicaid [id number] 2017 Medicaid [id number] 1961 Medicare [id number] Social History Date Type Detail Facility Start: 12-21-2018 End: 02-16-2022 Tobacco smoking status NHIS Former smoker [facility] End: 10-21-2018 History of tobacco use Current smoker [place] Start: 09-17-1970 End: 10-21-2018 History of tobacco use Cigarette Smoker [place] Start: 12-21-2018 End: 09-10-2022 Cigarettes smoked current (pack per day) - Reported [facility] Start: 12-21-2018 End: 09-10-2022 Alcohol intake Yes [facility] Start: 08-16-2018 History SDOH Alcohol Frequency 2 [place] Start: 08-16-2018 History SDOH Alcohol Std Drinks 1 [place] Start: 08-16-2018 History SDOH Social Connections Phone 5 [place] Start: 08-16-2018 History SDOH Social Connections Get Together 3 [place] Start: 08-16-2018 History SDOH Physica l Activity DPW 0 [place], [place] Start: 1955 Sex Assigned At Not on file M [place], [place] Start: 09-17-1970 History of tobacco use Cigar Smoker [facility] Start: 02-17-2021 End: 02-16-2022 Tobacco use and exposure Smokeless tobacco non-user [facility] Start: 02-27-2021 End: 04-07-2023 Alcohol intake Current drinker of alcohol (finding) [facility] Start: 09-23-2020 History SDOH Alcohol Comment not weekly [facility] Start: 09-23-2020 End: 02-16-2022 Tobacco Comment quit cigs in 2019, currently smokes 2-3 cigars a week [facility] Start: 10-05-2021 End: 09-13-2022 Exposure to SARS-CoV-2 (event) Not sure [facility] Start: 12-09-2021 History SDOH Alcohol Comment Social [facility] How hard is it for y ou to pay for the very basics like food, housing, medical care, and heating Not hard at all [facility] (I/We) worried whemegan er (my/our) food would run out before (I/we) got money to buy more. Never true [facility] In the past 12 month s, was there a time when you were not able to pay the mortgage or rent on time? No [facility] Goals Date Patient Goal Desired Activity /State Clinical Notes 09-17-2015 to 04-28-2023 Telephone Encounter - [place] Mcclendon - 04/18/2023 2:53 PM ESTTelephone Encounter - [place] Mclcendon - 04/18/2023 9:33 AM ESTTelephone Encounter - Alyssa Clark RN - 04/15/2023 12:07 PM EST Note Date & Type Note Facility 04-28-2023 Note HNO ID: [id number] Author: Tulio (Front Maker)Dania Service: ? Author Type: ? Type: Progress Notes Filed: 05/03/2023 11:19 AM Note Text: Attestation signed by Maciel Torrez RP at 05/03/2023 11:45 AM Maciel Torrez PharmD, [facility] Clinical Pharmacist - Biologics: Allergy, Immunology, and Inflammatory [facility] ; Pool: P [facility] Pool #: [id number] [facility] Discontinuation Assessment: Disease group: Inflammatory Medication: ENBREL SURECLICK 50 MG/ML (1 ML) SUBCUTANEOUS PEN INJECTOR Discontinue reason: Non-adherent Patient is no longer taking Enbrel Dania Antunez [facility] 04-18-2023 Miscellaneous Notes Sent pt Smartjog message letting him know Dr. Titus would like to see him after 05/18 US and that the 04/21 virtual visit has been canceled. Asked for pt to call to schedule in person visit. Left vm for patient letting him know Dr. Titus would like to see him after 05/18 US and that the 04/21 virtual visit will be canceled. Requested pt to call to get US followup scheduled. Dr Ariela Clark SHEETFED PRESS OPERATOR [facility] [place] Pt requesting clarification on upcoming appts. Pt scheduled for middle of April for virtual f/u. Pt is questioning why he is completing this appt in April before he has his US in May. Pt also unable to do this as a virtual can only do in office only. Please review and advise. No chief complaint on file. Patient has been identified by name and birthdate. Duration of symptoms: N/A Person calling: self Call patient at: on cell [phone] (home) [phone] (cell) Was an appointment scheduled: No Closing statement: Results or non-symptom based questions: Thank you for calling [facility], your call will be returned within the next business day. Hanh Mott documented in this encounter [facility] 04-07-2023 Note HNO ID: [id number] Author: Jennifer Wolfe, DO Service: ? Author Type: Physician Type: Progress Notes Filed: 04/14/2023 4:24 PM Note Text: Heart , V[facility] Thor[facility] [place] DEPARTMENT OF VASCULAR SURGERY OUTPATIENT VISIT DATE April 07, 2023 OUTPATIENT VISIT TYPE CONSULTATION SERVICE DATE: 04/07/2023 SERVICE TIME: 10:57 AM PRIMARY CARE PHYSICIAN: Darcie Zavala APRN.BASIN OPERATOR REFERRING PROVIDER: Isabel Hinton MD [address] [place] [address] Consult requested for an opinion regarding the evaluation and treatment of the above. My final impression and recommendations will be communicated back to the requesting physician by way of the shared medical record or letter via US mail. CHIEF COMPLAINT: Bilateral finger ulcerations HISTORY OF PRESENT ILLNESS: Vascular consultation at the request of Dr. Isabel Hinton. A copy of this consultation note will be provided to the requesting physician by way of shared Medical record or letter to requesting physician via US mail. Mr. Timmons is a 67 year old male who is seen today for bilateral hand ulcerations. Complains of right hand pain greater than left. He has seen multiple providers. States hands are sensitive to temperature. He recently saw dermatology who is concerned about Beurger's disease. He has been having difficult time with ADLs due to hand ulcerations PAST MEDICAL HISTORY Diagnosis Date Anemia 09/18/2015 Arthritis Chronic obstructive pulmonary disease (COPD) (HCC) Degenerative disc disease, cervical High blood pressure Mass on back 09/17/2015 Systemic lupus erythematosus (HCC) PAST SURGICAL HISTORY Procedure Laterality Date BACK SURGERY HX 11/14/2017 L4/5 laminectomy/decompression COLONOSCOPY 01/18/2014 internal hemorrhoids, rectal inflammation COLONOSCOPY 06/25/2020 int hemorrhoids, diverticulosis, unremarkable biopsies ESOPHAGOGASTRODUODENOSCOPY TRANSORAL DIAGNOSTIC 02/25/2021 gastritis, reflux esophagitis, unremarkable bxs F CAPSULE ENDOSCOPY 09/11/2021 KNEE SURGERY HX 1990 LEG SURGERY HX LIPOMA (LARGE) 09/26/2015 Excision Left Uppper Back Mass, NERVE SURGERY HX 2009 left arm candelario nerve rerouted SOCIAL HISTORY: Social History Tobacco Use Smoking status: Former Smokeless tobacco: Never Tobacco comments: quit cigs in 2019, currently smokes 2-3 cigars a week Vaping Use Vaping Use: Never used Substance Use Topics Alcohol use: Yes Comment: Social Drug use: No Comment: used marijuana as a teen FAMILY HISTORY Problem Relation Age of Onset Hypertension Mother Diabetes Mother Stroke Mother Cancer Mother lymphoma Cancer Father mesothelioma Colon Cancer Maternal Grandmother Arthritis Other other (Myocardial infarction) Other MEDICATIONS: Etanercept (ENBREL SURECLICK) 50 mg/mL (1 mL)Inject 50mg (1 pen) subcutaneously one time a week.Disp: 4 mLRfl: 5 dilTIAZem CR (TIAZAC, TAZTIA XT) 120 mg 24 hr capsuleTake 1 capsule by mouth once daily.Disp: 90 capsuleRfl: 2 zolpidem (AMBIEN) 10 mgTake 1 tablet by mouth at bedtime as needed (for insomnia.) for up to 30 days.Disp: Rfl: levothyroxine (SYNTHROID) 50 mcg tabletTake 1 tablet by mouth daily before breakfast.Disp: Rfl: ALLERGIES: ALLERGIES Allergen Reactions Keflex [Cephalexin] Hives REVIEW OF SYSTEM: Constitutional: Negative for Malaise and fever, Weight loss - Yes HEENT: Negative for frequent or significant headaches, Negative for significant vision problems and nasal discharge or nose bleeds, Ears Positive for hearing loss Respiratory: Negative for cough, wheezing, or shortness of breath Cardiovascular: Negative for chest pain, leg swelling or palpitations Gatrointestinal: Negative for abdominal discomfort, blood in stools or black stools or change in bowel habits Genitourinary: No difficulty urination, nocturia >1 times per night or hematuria and Positive for frequency Musculoskeletal: Positive for back pain, joint swelling, and joint pain Endocrine: Positive for cold intolerance Hematology/Lymphatic: Negative for prolonged bleeding, bruising easily or swollen nodes Neurologic: Negative for headaches, seizures, dizziness, paralysis, and tremor and Positive for syncope Integumentary: Negative for rash and itching and Positive for lesions PHYSICAL EXAM: VITALS: There were no vitals taken for this visit. General: Alert and oriented Integumentary: Lesion HEENT: EOM, pupils equal, round and reactive. Cardiovascular: Pulse regular. Lungs: Normal breath sounds, no wheezes or crackles. Abdomen: Not examined Extremities: Ulcers Neurological: Normal cognition and motor skills. Vascular: Brachial Pulse Right: Normal - Left: Normal Radial Pulse Right: Weak - Left: Weak Diagnostic tests reviewed for today's visit: IMPRESSION: Mr. Timmons is a 67 year old male with ulcerations and delayed cap refill. PLAN and RECOMMENDATIONS: Recommend bilateral upp (more content not included)... [facility] 04-07-2023 History of Present illness Narrative Images from the original note were not included. [facility] [place] DEPARTMENT OF VASCULAR SURGERY OUTPATIENT VISIT DATE April 07, 2023 OUTPATIENT VISIT TYPE CONSULTATION SERVICE DATE: 04/07/2023 SERVICE TIME: 10:57 AM PRIMARY CARE PHYSICIAN: Darcie Zavala APRN.BASIN OPERATOR REFERRING PROVIDER: Isabel Hinton MD [address] [place] [address] Consult requested for an opinion regarding the evaluation and treatment of the above. My final impression and recommendations will be communicated back to the requesting physician by way of the shared medical record or letter via US mail. CHIEF COMPLAINT: Bilateral finger ulcerations HISTORY OF PRESENT ILLNESS: Vascular consultation at the request of Dr. Isabel Hinton. A copy of this consultation note will be provided to the requesting physician by way of shared Medical record or letter to requesting physician via US mail. Mr. Timmons is a 67 year old male who is seen today for bilateral hand ulcerations. Complains of right hand pain greater than left. He has seen multiple providers. States hands are sensitive to temperature. He recently saw dermatology who is concerned about Beurger's disease. He has been having difficult time with ADLs due to hand ulcerations PAST MEDICAL HISTORY Diagnosis Date Anemia 09/18/2015 Arthritis Chronic obstructive pulmonary disease (COPD) (HCC) Degenerative disc disease, cervical High blood pressure Mass on back 09/17/2015 Systemic lupus erythematosus (HCC) PAST SURGICAL HISTORY Procedure Laterality Date BACK SURGERY HX 11/14/2017 L4/5 laminectomy/decompression COLONOSCOPY 01/18/2014 internal hemorrhoids, rectal inflammation COLONOSCOPY 06/25/2020 int hemorrhoids, diverticulosis, unremarkable biopsies ESOPHAGOGASTRODUODENOSCOPY TRANSORAL DIAGNOSTIC 02/25/2021 gastritis, reflux esophagitis, unremarkable bxs F CAPSULE ENDOSCOPY 09/11/2021 KNEE SURGERY HX 1989 LEG SURGERY HX LIPOMA (LARGE) 09/26/2015 Excision Left Uppper Back Mass, NERVE SURGERY HX 2008 left arm candelario nerve rerouted SOCIAL HISTORY: Social History Tobacco Use Smoking status: Former Smokeless tobacco: Never Tobacco comments: quit cigs in 2019, currently smokes 2-3 cigars a week Vaping Use Vaping Use: Never used Substance Use Topics Alcohol use: Yes Comment: Social Drug use: No Comment: used marijuana as a teen FAMILY HISTORY Problem Relation Age of Onset Hypertension Mother Diabetes Mother Stroke Mother Cancer Mother lymphoma Cancer Father mesothelioma Colon Cancer Maternal Grandmother Arthritis Other other (Myocardial infarction) Other MEDICATIONS: Etanercept (ENBREL SURECLICK) 50 mg/mL (1 mL)^Inject 50mg (1 pen) subcutaneously one time a week.^Disp: 4 mL^Rfl: 5 dilTIAZem CR (TIAZAC, TAZTIA XT) 120 mg 24 hr capsule^Take 1 capsule by mouth once daily.^Disp: 90 capsule^Rfl: 2 zolpidem (AMBIEN) 10 mg^Take 1 tablet by mouth at bedtime as needed (for insomnia.) for up to 30 days.^Disp: ^Rfl: levothyroxine (SYNTHROID) 50 mcg tablet^Take 1 tablet by mouth daily before breakfast.^Disp: ^Rfl: ALLERGIES: ALLERGIES Allergen Reactions Keflex [Cephalexin] Hives REVIEW OF SYSTEM: Constitutional: Negative for Malaise and fever, Weight loss - Yes HEENT: Negative for frequent or significant headaches, Negative for significant vision problems and nasal discharge or nose bleeds, Ears Positive for hearing loss Respiratory: Negative for cough, wheezing, or shortness of breath Cardiovascular: Negative for chest pain, leg swelling or palpitations Gatrointestinal: Negative for abdominal discomfort, blood in stools or black stools or change in bowel habits Genitourinary: No difficulty urination, nocturia >1 times per night or hematuria and Positive for frequency Musculoskeletal: Positive for back pain, joint swelling, and joint pain Endocrine: Positive for cold intolerance Hematology/Lymphatic: Negative for prolonged bleeding, bruising easily or swollen nodes Neurologic: Negative for headaches, seizures, dizziness, paralysis, and tremor and Positive for syncope Integumentary: Negative for rash and itching and Positive for lesions PHYSICAL EXAM: VITALS: There were no vitals taken for this visit. General: Alert and oriented Integumentary: Lesion HEENT: EOM, pupils equal, round and reactive. Cardiovascular: Pulse regular. Lungs: Normal breath sounds, no wheezes or crackles. Abdomen: Not examined Extremities: Ulcers Neurological: Normal cognition and motor skills. Vascular: Brachial Pulse Right: Normal - Left: Normal Radial Pulse Right: Weak - Left: Weak Diagnostic tests reviewed for today's visit: IMPRESSION: Mr. Timmons is a 67 year old male with ulcerations and delayed cap refill. PLAN and RECOMMENDATIONS: Recommend bilateral upper extremity duplex Reviewed prior arm PVRs which were normal We discussed nitropaste to finger base Recommend referral to vascular medicine SIGNATURE: Jennifer Wolfe DO PATIENT NAME: Iam Timmons DATE: April 07, 2023 TIME: 10:57 AM documented in this encounter [facility] 04-04-2023 Note HNO ID: [id number] Author: Carmen Alvarado Service: ? Author Type: ? Type: Progress Notes Filed: 04/04/2023 12:14 PM Note Text: [facility] Specialty Refill Assessment Medication(s): Enbrel Patient's current medication list and adherence status to current therapy were reviewed by Specialty Pharmacy clinical pharmacist to identify any new drug interactions or non-compliance to therapy. Therapy continues to be appropriate for disease, patient response, and medical condition. Verification of therapeutic benefit and effectiveness with current therapy was completed. Adverse events, barriers in adherence, and side effects were assessed and addressed if applicable. Will proceed with refill with no changes in therapy - patient progressing towards achieving therapeutic goals based on medication-specific laboratory parameters, disease state markers and outcomes. 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 Patient confirmed: Yes Med/dose confirmed: Yes Supplies needed: No supplies needed Missed doses: No Estimated days supply on hand: 1 Next cycle/dose due: 04/07/23 Copay amount: 0 Payment confirmed: Yes Delivery method: FedEx Signature required: Waived on patient request Delivery address: [address] [place] [id number] Delivery date: 04/12/23 Questions or concerns for the pharmacist?: No (Reaching out to MD might need to change meds due to flares) [facility] Pharmacy Visit Assessment - Inflammatory Conditions: Assessment to use: Refill Vaccination Assessment: Date of influenza vaccination reminder: 02/11/2023 Date of most recent vaccination assessment: 02/11/2023 Treatment Plan Information: Treatment Plan Information: M13.80 - Seronegative arthritis Enbrel - Inject 50mg (1 syringe) subcutaneously one time a week. Estimated Treatment Duration: Until loss of efficacy and/or no longer tolerated. Carmen Alvarado CPhT, Inflammatory/Allergy [facility] [phone] [facility] 03-08-2023 Note HNO ID: [id number] Author: Sana Yoder Service: ? Author Type: ? Type: Progress Notes Filed: 03/10/2023 3:09 PM Note Text: [facility] Refill Assessment Medication(s): Enbrel Patient's current medication list and adherence status to current therapy were reviewed by Specialty Pharmacy clinical pharmacist to identify any new drug interactions or non-compliance to therapy. Therapy continues to be appropriate for disease, patient response, and medical condition. Verification of therapeutic benefit and effectiveness with current therapy was completed. Adverse events, barriers in adherence, and side effects were assessed and addressed if applicable. Will proceed with refill with no changes in therapy - patient progressing towards achieving therapeutic goals based on medication-specific laboratory parameters, disease state markers and outcomes. 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 Patient confirmed: Yes Med/dose confirmed: Yes Supplies needed: No supplies needed Missed doses: No Estimated days supply on hand: 1 Next cycle/dose due: 03/10/23 Copay amount: 0 Payment confirmed: Yes Delivery method: FedEx Signature required: Waived on patient request Delivery address: [facility] [address], [place], [address] Delivery date: 03/15/23 Questions or concerns for the pharmacist?: No [facility] Visit Assessment - Inflammatory Conditions: Assessment to use: Refill Vaccination Assessment: Date of influenza vaccination reminder: 02/11/2023 Date of most recent vaccination assessment: 02/11/2023 Treatment Plan Information: Treatment Plan Information: M13.80 - Seronegative arthritis Enbrel - Inject 50mg (1 syringe) subcutaneously one time a week. Estimated Treatment Duration: Until loss of efficacy and/or no longer tolerated. Refill Assessment: Concurrent med therapy and DMARD screening: Yes Assessment of injection issues: Yes Screening for infection: Yes Adverse reactions and mitigation: Yes COPD monitoring ([place]): N/A Assessment of efficacy: Yes Sana Yoder CBC with differential (baseline); complete metabolic panel (baseline); tuberculosis (TB) screening prior to initiating and during therapy (chest X-ray if TB positive); hepatitis B virus (HBV)/hepatitis C virus screening prior to initiating (all patients), HBV carriers (during and for several months following therapy); HIV screening (baseline) (AAD-NPF [[place] 2019]); signs/symptoms of infection, heart failure, hypersensitivity reaction, lupus-like syndrome, or malignancy (eg, splenomegaly, hepatomegaly, abdominal pain, persistent fever, night sweats, weight loss). Monitor improvement of symptoms and physical function assessments. CBC with diff: WBC Date Value Ref Range Status 12/03/2022 4.06 3.70 - 11.00 k/uL Final RBC Date Value Ref Range Status 12/03/2022 3.95 (L) 4.20 - 6.00 m/uL Final Hemoglobin Date Value Ref Range Status 12/03/2022 11.0 (L) 13.0 - 17.0 g/dL Final Hematocrit Date Value Ref Range Status 12/03/2022 32.1 (L) 39.0 - 51.0 % Final MCV Date Value Ref Range Status 12/03/2022 81.3 80.0 - 100.0 fL Final MCH Date Value Ref Range Status 12/03/2022 27.8 26.0 - 34.0 pg Final MCHC Date Value Ref Range Status 12/03/2022 34.3 30.5 - 36.0 g/dL Final RDW-CV Date Value Ref Range Status 12/03/2022 13.8 11.5 - 15.0 % Final Platelet Count Date Value Ref Range Status 12/03/2022 214 150 - 400 k/uL Final MPV Date Value Ref Range Status 12/03/2022 9.0 9.0 - 12.7 fL Final Neutrophils % Date Value Ref Range Status 12/02/2022 53.7 % Final Lymphocytes % Date Value Ref Range Status 12/02/2022 31.0 % Final Monocytes % Date Value Ref Range Status 12/02/2022 12.6 % Final Eosin% Date Value Ref Range Status 10/10/2007 1 0 - 4 % Final Basophils % Date Value Ref Range Status 12/02/2022 0.6 % Final Abs Neut Date Value Ref Range Status 12/02/2022 1.84 1.45 - 7.50 k/uL Final Abs Lym Date Value Ref Range Status 10/10/2007 1.8 1.0 - 4.0 k/uL Final Abs [place] Date Value Ref Range Status 12/02/2022 0.43 <0.87 k/uL Final Abs Eosin Date Value Ref Range Status 12/02/2022 0.06 <0.46 k/uL Final Abs Baso Date Value Ref Range Status 12/02/2022 <0.03 <0.11 k/uL Final TB: TB Result Date Value Ref Range Status 05/18/2022 Negative Final HBV: Hepatitis B Core Ab, Total Date Value Ref Range Status 02/22/2022 Positive (A) Negative Final Comment: The result suggests either current or past infection with Hepatitis B virus. Non-specific reactivity may at times be seen with this test due to some underlying phenomena. Please correlate with HBsAg result and medical history. HCV: Hep C Antibody IA Date Value Ref Range Status 02/22/2022 Positive (A) Negative Final Comment: Confirmation with Hepatitis C RNA has been ordered and charged. HCV Quant RNA by PCR Date Value Ref Range Status 02/22/2022 HCV RNA not detected (more content not included)... [facility] 03-01-2023 Miscellaneous Notes PSS- per Dr. Meredith, please reach out to the patient and try to get him scheduled for a zoom call (visit). I spoke with him yesterday in length and informed him visits can not be done as phone calls. (See other encounter). Pt was not able to do his virtual appt pt asking if he do as a phone call Please call pt [phone] documented in this encounter [facility] 02-11-2023 Miscellaneous Notes Per request Dr Titus I faxed NM US order to [facility] location [phone] Titus office contact for results Alyssa Clark SHEETFED PRESS OPERATOR [facility] [place] documented in this encounter [facility] 02-10-2023 Note HNO ID: [id number] Author: Álvaro Titus MD Service: ? Author Type: Physician Type: Progress Notes Filed: 02/11/2023 9:46 AM Note Text: Impression: This is Mr. Iam Timmons, a 67 year old male who presents to the [facility] Neurology clinic with the chief complaint of complications in the right upper extremity after multiple surgeries. Also, pain. History of carpal tunnel release and cubital tunnel region surgery right upper extremity April 2022. Complicated postoperative course. Incision apparently did not heal and continue to drain postoperatively. The patient was taken back to the OR in June 2022 for irrigation, debridement. Before surgery, no weakness of the right hand, occasional numbness. Subsequently with weakness and numbness after surgery. Much practical difficulty (trouble with buttons, keys, doorknobs, for example). On exam, bilateral FDI atrophy, worse on the right. Possibly diminutive right hypothenar eminence on the right compared to left. Strength is actually fairly good in the right upper extremity, with the exception of finger abduction (approximately 4) and possibly thumb abduction (5 - to 5). Sensory exam is challenging and perhaps variable. Perhaps some decrease sensation to touch over the right hypothenar eminence. Plan: - Neuromuscular ultrasound. We will plan for the patient to have this completed at [facility] in [place]. - I wish the patient would reach out to me after neuromuscular ultrasound is complete. We will follow-up together in approximately 8 weeks, if not sooner. Can discuss pain at next visit. Reach out with any questions or concerns. MyChart is a very good way to get ahold of our team. Álvaro Titus MD Staff, Neuromuscular Center [facility] Neurological [place] HPI: This is Mr. Iam Timmons, a 67 year old male who presents to the [facility] Neurology clinic with the chief complaint of complications in the right upper extremity after multiple surgeries. Also, pain. Review: X-ray elbow 2 views Patient brings report Normal bony and joint appearance right elbow MRI elbow 12/13/2022 Patient brings report This study showed a fluid collection within the subcutaneous tissues of the olecranon. (This was ultimately drained in hospital. No growth. 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 Right moderate recurrent carpal tunnel syndrome CC: That scar right there (right arm) Surgery Multiple surgeries Still screwed up Pain Today: Wound open after surgery Photos Right handed 2006 injured both arms Pulled everything in upper arms 2007 or so cubital tunnel surgery left arm Works great And carpal tunnel surgery that side Right arm feeling pretty good Could use it Then about a little over a year ago Trouble picking arm up Wrist hurting Shoulder hurting April 2022 Cubital tunnel and carpal tunnel surgery right arm Pre op EMG apparently showed CTS and ulnar neuropathy Surgery Weak after surgery June 2022 Another surgery EMG before EMG after MRI elbow recently US? Today Numbness Weakness Shooting pain Also with Neck pain Shooting pain Tingling Trouble with Buttons [place] Doorknobs Nothing makes it better Using the hand makes it worse Before surgery No weakness of the hand Occasional numb Sees Rheum Treated for seronegative RA Past history per chart review includes: Past medical history, problem list: Seronegative rheumatoid arthritis Right olecranon bursitis COPD, cervical degenerative disc disease, SLE (?) A-fib, hypothyroidism, thromboembolic disorder Past surgical history: Right cubital tunnel release April 2022 (complicated postoperative course, incision did not heal and continue to drain postoperatively; subsequently taken back to the OR June 2022 for irrigation, debridement) L4-5 laminectomy/decompression Remote knee surgery Family history: Hypertension, diabetes, arthritis Social history: Smokes cigars Social alcohol OBJECTIVE: PHYSICAL EXAM: Neurological: Mental Status: Alert. Speech fluent. Cranial Nerves: CNIII, IV, : Eyes cross midline. CN V: Facial sensation intact bilaterally to touch. CN VII: Smile is symmetric. CN VIII: [place] CN IX: No hypophonia. CN XII: Tongue protrusion full, midline. Motor: Lanky I wonder about triceps atrophy BL FDI atrophy, worse on R R ADM diminutive compared to L? Trouble relaxing left arm Tone normal right arm Individual muscle group testing: Right Left Shoulder abduction 5 5 Elbow flexion 5 5 Elbow extension 5 5 Wrist extension 5 5 Wrist flexion Finger extension 5 5 Distal finger flexion 5 (sic) 5 Finger abduction 4 Thumb abduction 5- to 5 5 Software Developer Manager Approx 5 Hip flexion Knee extension Knee fl (more content not included)... [facility] 02-10-2023 History of Present illness Narrative Impression: This is Mr. Iam Timmons, a 67 year old male who presents to the [facility] Neurology clinic with the chief complaint of complications in the right upper extremity after multiple surgeries. Also, pain. History of carpal tunnel release and cubital tunnel region surgery right upper extremity April 2022. Complicated postoperative course. Incision apparently did not heal and continue to drain postoperatively. The patient was taken back to the OR in June 2022 for irrigation, debridement. Before surgery, no weakness of the right hand, occasional numbness. Subsequently with weakness and numbness after surgery. Much practical difficulty (trouble with buttons, keys, doorknobs, for example). On exam, bilateral FDI atrophy, worse on the right. Possibly diminutive right hypothenar eminence on the right compared to left. Strength is actually fairly good in the right upper extremity, with the exception of finger abduction (approximately 4) and possibly thumb abduction (5 - to 5). Sensory exam is challenging and perhaps variable. Perhaps some decrease sensation to touch over the right hypothenar eminence. Plan: - Neuromuscular ultrasound. We will plan for the patient to have this completed at [facility] in [place]. - I wish the patient would reach out to me after neuromuscular ultrasound is complete. We will follow-up together in approximately 8 weeks, if not sooner. Can discuss pain at next visit. Reach out with any questions or concerns. MyChart is a very good way to get ahold of our team. Álvaro Titus MD Staff, Neuromuscular Center [facility] [place] HPI: This is Mr. Iam Timmons, a 67 year old male who presents to the [facility] Neurology clinic with the chief complaint of complications in the right upper extremity after multiple surgeries. Also, pain. Review: X-ray elbow 2 views right/10/2022 Patient brings report Normal bony and joint appearance right elbow MRI elbow 12/13/2022 Patient brings report This study showed a fluid collection within the subcutaneous tissues of the olecranon. (This was ultimately drained in hospital. No growth. 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 Right moderate recurrent carpal tunnel syndrome CC: That scar right there (right arm) Surgery Multiple surgeries Still screwed up Pain Today: Wound open after surgery Photos Right handed 2006 injured both arms Pulled everything in upper arms 2007 or so cubital tunnel surgery left arm Works great And carpal tunnel surgery that side Right arm feeling pretty good Could use it Then about a little over a year ago Trouble picking arm up Wrist hurting Shoulder hurting April 2022 Cubital tunnel and carpal tunnel surgery right arm Pre op EMG apparently showed CTS and ulnar neuropathy Surgery Weak after surgery June 2022 Another surgery EMG before EMG after MRI elbow recently US? Today Numbness Weakness Shooting pain Also with Neck pain Shooting pain Tingling Trouble with Buttons [place] Doorknobs Nothing makes it better Using the hand makes it worse Before surgery No weakness of the hand Occasional numb Sees Rheum Treated for seronegative RA Past history per chart review includes: Past medical history, problem list: Seronegative rheumatoid arthritis Right olecranon bursitis COPD, cervical degenerative disc disease, SLE (?) A-fib, hypothyroidism, thromboembolic disorder Past surgical history: Right cubital tunnel release April 2022 (complicated postoperative course, incision did not heal and continue to drain postoperatively; subsequently taken back to the OR June 2022 for irrigation, debridement) L4-5 laminectomy/decompression Remote knee surgery Family history: Hypertension, diabetes, arthritis Social history: Smokes cigars Social alcohol OBJECTIVE: PHYSICAL EXAM: Neurological: Mental Status: Alert. Speech fluent. Cranial Nerves: CNIII, IV, : Eyes cross midline. CN V: Facial sensation intact bilaterally to touch. CN VII: Smile is symmetric. CN VIII: [place] CN IX: No hypophonia. CN XII: Tongue protrusion full, midline. Motor: Lanky I wonder about triceps atrophy BL FDI atrophy, worse on R R ADM diminutive compared to L? Trouble relaxing left arm Tone normal right arm Individual muscle group testing: Right Left Shoulder abduction 5 5 Elbow flexion 5 5 Elbow extension 5 5 Wrist extension 5 5 Wrist flexion Finger extension 5 5 Distal finger flexion 5 (sic) 5 Finger abduction 4 Thumb abduction 5- to 5 5 Software Developer Manager Approx 5 Hip flexion Knee extension Knee flexion Dorsiflexion Plantarflexion Reflexes: R L Biceps 1-2 1-2 Triceps 2 2 Sensation: Challenging Variable? Perhaps decreased over R hypothenar eminence Gait: Stands with arms crossed. Ambulates fairly easily in the clinic prasad. Fairly normal, narrow-based gait. Normal range arm swing. Turns fairly easily. Spurling to the right: difficult, not overtly positive This note was partially created using voice recognition software and is inherently subject to errors including those of syntax and sound-alike substitutions which may escape proofreading. In such instances, original meaning may be extrapolated by contextual derivation. I spent a total of 67 minutes on the date of the service which included time spent preparing to see the patient, talking the patient/documenting the chart, examining the patient. documented in this encounter [facility] 02-07-2023 Note HNO ID: [id number] Author: Isabel Sigala Service: ? Author Type: ? Type: Progress Notes Filed: 02/11/2023 12:20 PM Note Text: [facility] Refill Assessment Medication(s): Enbrel Patient's current medication list and adherence status to current therapy were reviewed by Specialty Pharmacy clinical pharmacist to identify any new drug interactions or non-compliance to therapy. Therapy continues to be appropriate for disease, patient response, and medical condition. Verification of therapeutic benefit and effectiveness with current therapy was completed. Adverse events, barriers in adherence, and side effects were assessed and addressed if applicable. Will proceed with refill with no changes in therapy - patient progressing towards achieving therapeutic goals based on medication-specific laboratory parameters, disease state markers and outcomes. 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 Patient confirmed: Yes Med/dose confirmed: Yes Supplies needed: No supplies needed Missed doses: No Estimated days supply on hand: 0 Next cycle/dose due: 02/17/23 Copay amount: 0 Delivery method: FedEx Signature required: Waived on patient request Delivery address: [address] [facility] [address] Delivery date: 02/14/23 Questions or concerns for the pharmacist?: No [facility] Visit Assessment - Inflammatory Conditions: Assessment to use: Refill Vaccination Assessment: Annual influenza vaccination reminder: Yes Date of influenza vaccination reminder: 02/11/2023 Vaccination assessment completed: Yes Date of most recent vaccination assessment: 02/11/2023 Treatment Plan Information: Treatment Plan Information: M13.80 - Seronegative arthritis Enbrel - Inject 50mg (1 syringe) subcutaneously one time a week. Estimated Treatment Duration: Until loss of efficacy and/or no longer tolerated. Refill Assessment: Concurrent med therapy and DMARD screening: Yes Assessment of injection issues: Yes Screening for infection: Yes Adverse reactions and mitigation: Yes COPD monitoring (Orencia): N/A Assessment of efficacy: Yes Isabel Sigala CBC with differential (baseline); complete metabolic panel (baseline); tuberculosis (TB) screening prior to initiating and during therapy (chest X-ray if TB positive); hepatitis B virus (HBV)/hepatitis C virus screening prior to initiating (all patients), HBV carriers (during and for several months following therapy); HIV screening (baseline) (AAD-NPF [Menter 2019]); signs/symptoms of infection, heart failure, hypersensitivity reaction, lupus-like syndrome, or malignancy (eg, splenomegaly, hepatomegaly, abdominal pain, persistent fever, night sweats, weight loss). Monitor improvement of symptoms and physical function assessments. CBC with diff: WBC Date Value Ref Range Status 12/03/2022 4.06 3.70 - 11.00 k/uL Final RBC Date Value Ref Range Status 12/03/2022 3.95 (L) 4.20 - 6.00 m/uL Final Hemoglobin Date Value Ref Range Status 12/03/2022 11.0 (L) 13.0 - 17.0 g/dL Final Hematocrit Date Value Ref Range Status 12/03/2022 32.1 (L) 39.0 - 51.0 % Final MCV Date Value Ref Range Status 12/03/2022 81.3 80.0 - 100.0 fL Final MCH Date Value Ref Range Status 12/03/2022 27.8 26.0 - 34.0 pg Final MCHC Date Value Ref Range Status 12/03/2022 34.3 30.5 - 36.0 g/dL Final RDW-CV Date Value Ref Range Status 12/03/2022 13.8 11.5 - 15.0 % Final Platelet Count Date Value Ref Range Status 12/03/2022 214 150 - 400 k/uL Final MPV Date Value Ref Range Status 12/03/2022 9.0 9.0 - 12.7 fL Final Neutrophils % Date Value Ref Range Status 12/02/2022 53.7 % Final Lymphocytes % Date Value Ref Range Status 12/02/2022 31.0 % Final Monocytes % Date Value Ref Range Status 12/02/2022 12.6 % Final Eosin% Date Value Ref Range Status 10/10/2007 1 0 - 4 % Final Basophils % Date Value Ref Range Status 12/02/2022 0.6 % Final Abs Neut Date Value Ref Range Status 12/02/2022 1.84 1.45 - 7.50 k/uL Final Abs Lym Date Value Ref Range Status 10/10/2007 1.8 1.0 - 4.0 k/uL Final Abs [place] Date Value Ref Range Status 12/02/2022 0.43 <0.87 k/uL Final Abs Eosin Date Value Ref Range Status 12/02/2022 0.06 <0.46 k/uL Final Abs Baso Date Value Ref Range Status 12/02/2022 <0.03 <0.11 k/uL Final TB: TB Result Date Value Ref Range Status 05/18/2022 Negative Final HBV: Hepatitis B Core Ab, Total Date Value Ref Range Status 02/22/2022 Positive (A) Negative Final Comment: The result suggests either current or past infection with Hepatitis B virus. Non-specific reactivity may at times be seen with this test due to some underlying phenomena. Please correlate with HBsAg result and medical history. HCV: Hep C Antibody IA Date Value Ref Range Status 02/22/2022 Positive (A) Negative Final Comment: Confirmation with Hepatitis C RNA has been ordered and charged. HCV Quant RNA by PCR Date Value (more content not included)... [facility] 02-04-2023 Miscellaneous Notes LM and MYC message for patient to call back and schedule. I spoke with the pt he had surgery on his arm again and had to hold the Enbrel for a few weeks and since then really never got better, not sure if its bursitis issue or his RA that's the problem, although in the last few weeks has had all over joint pain that then became more focus on his hands. I did say he may need to be seen prior to medication change as he has had a lot of different things going on and we will need eyes on him. Should we schedule a visit now with Chandni and then one with you for f/u? Medication changes can not happen with out a f/u please call the pt and schedule one with either Dr. Meredith in May and one with Chandni in March for an hour. Pt feels the Enbrel isnt working for him anymore his hands and fingertips are numb Pt wondering if it needs adjusted or to try something else Please call pt [phone] documented in this encounter [facility] 01-26-2023 Note HNO ID: [id number] Author: Carmen Alvarado Service: ? Author Type: ? Type: Progress Notes Filed: 01/26/2023 10:53 AM Note Text: [facility] has been servicing patient for cycles/refills of Enbrel. Benefits investigation was conducted, indicating that a prior authorization renewal is required. Prior authorization was initiated. Plan Name: [facility] Dual Plan Agent/Maya: [id number] Phone/Fax: - / - Case: [id number] Timeline: Standard Carmen Alvarado CPhT, Inflammatory/Allergy [facility] [phone] [facility] 01-26-2023 Note HNO ID: [id number] Author: Carmen Alvarado Service: ? Author Type: ? Type: Progress Notes Filed: 01/27/2023 8:11 AM Note Text: [facility] has been servicing patient for cycles/refills of Enbrel. Plan Name: [facility] Dual Phone/Fax: - / - LEONARDO reference number: [id number] Approval Dates: 01/26/23-05/08/23 [facility] will continue to service order accordingly. Carmen Alvarado CPhT, Inflammatory/Allergy [facility] [phone] [facility] 01-26-2023 History of Present illness Narrative [facility] has been servicing patient for cycles/refills of Enbrel. Benefits investigation was conducted, indicating that a prior authorization renewal is required. Prior authorization was initiated. Plan Name: [facility] Dual Plan Agent/Maya: [id number] Phone/Fax: - / - Case: [id number] Timeline: Standard Carmen Alvarado CPhT, Inflammatory/Allergy [facility] [phone] documented in this encounter [facility] 01-25-2023 Miscellaneous Notes Iam Timmons will be due for a refill soon. Last office visit: 12/06/22 Pended Orders ID Status Description Pended By When Reason [id number] Pended Etanercept (ENBREL SURECLICK) 50 mg/mL (1 mL)-1 TIME WEEKLY Carmen Alvarado 01/25/23 1240 If above therapy is being continued, please sign this order request to send refill(s) via eRx to [facility]. Thank you. Maciel Torrez RPh Clinical Pharmacist - Biologics: Allergy, Immunology, and Inflammatory [facility] ; Pool: P [facility] Pool #: [id number] documented in this encounter [facility] 01-12-2023 Miscellaneous Notes Received form from Dr Barboza in regards to Right Elbow surgery , TBD Placed on Dr Montgomery desk for review and signature Appointment with Dr Wang is on 04/25/2023 documented in this encounter [facility] 08-22-2023 Note HNO ID: [id number] Author: Stacy Green LPN Service: ? Author Type: LICENSED NURSE Type: Progress Notes Filed: 01/03/2023 1:18 PM Note Text: [facility] Ref[facility] Assessment Medication(s): Enbrel Patient's current medication list and adherence status to current therapy were reviewed by Specialty Pharmacy clinical pharmacist to identify any new drug interactions or non-compliance to therapy. Therapy continues to be appropriate for disease, patient response, and medical condition. Verification of therapeutic benefit and effectiveness with current therapy was completed. Adverse events, barriers in adherence, and side effects were assessed and addressed if applicable. Will proceed with refill with no changes in therapy - patient progressing towards achieving therapeutic goals based on medication-specific laboratory parameters, disease state markers and outcomes. 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 Patient confirmed: Yes Med/dose confirmed: Yes Supplies needed: No supplies needed Missed doses: Yes Count of missed doses: 2 Reason for missed doses: had infection in arm provider told him to stop until it clears, will inject tomorrow Estimated days supply on hand: 3 (syringes) Next cycle/dose due: 12/30/22 Copay amount: 0 Payment confirmed: Yes Delivery method: FedEx Signature required: Waived on patient request Delivery address: [address] [place] [address] Delivery date: 01/05/23 Questions or concerns for the pharmacist?: No [facility] Visit Assessment - Inflammatory Conditions: Assessment to use: Refill Treatment Plan Information: Treatment Plan Information: M13.80 - Seronegative arthritis Enbrel - Inject 50mg (1 syringe) subcutaneously one time a week. Estimated Treatment Duration: Until loss of efficacy and/or no longer tolerated. Refill Assessment: Concurrent med therapy and DMARD screening: Yes Assessment of injection issues: Yes Screening for infection: Yes Adverse reactions and mitigation: Yes COPD monitoring (Orencia): N/A Assessment of efficacy: Yes Additional Assessment: Current MPR%: 98 Stacy Green CPhT Cardiology, Neurology AND Infectious Disease [facility] CBC with differential (baseline); complete metabolic panel (baseline); tuberculosis (TB) screening prior to initiating and during therapy (chest X-ray if TB positive); hepatitis B virus (HBV)/hepatitis C virus screening prior to initiating (all patients), HBV carriers (during and for several months following therapy); HIV screening (baseline) (AAD-NPF [Menter 2019]); signs/symptoms of infection, heart failure, hypersensitivity reaction, lupus-like syndrome, or malignancy (eg, splenomegaly, hepatomegaly, abdominal pain, persistent fever, night sweats, weight loss). Monitor improvement of symptoms and physical function assessments. CBC with diff: WBC Date Value Ref Range Status 12/03/2022 4.06 3.70 - 11.00 k/uL Final RBC Date Value Ref Range Status 12/03/2022 3.95 (L) 4.20 - 6.00 m/uL Final Hemoglobin Date Value Ref Range Status 12/03/2022 11.0 (L) 13.0 - 17.0 g/dL Final Hematocrit Date Value Ref Range Status 12/03/2022 32.1 (L) 39.0 - 51.0 % Final MCV Date Value Ref Range Status 12/03/2022 81.3 80.0 - 100.0 fL Final MCH Date Value Ref Range Status 12/03/2022 27.8 26.0 - 34.0 pg Final MCHC Date Value Ref Range Status 12/03/2022 34.3 30.5 - 36.0 g/dL Final RDW-CV Date Value Ref Range Status 12/03/2022 13.8 11.5 - 15.0 % Final Platelet Count Date Value Ref Range Status 12/03/2022 214 150 - 400 k/uL Final MPV Date Value Ref Range Status 12/03/2022 9.0 9.0 - 12.7 fL Final Neutrophils % Date Value Ref Range Status 12/02/2022 53.7 % Final Lymphocytes % Date Value Ref Range Status 12/02/2022 31.0 % Final Monocytes % Date Value Ref Range Status 12/02/2022 12.6 % Final Eosin% Date Value Ref Range Status 10/10/2007 1 0 - 4 % Final Basophils % Date Value Ref Range Status 12/02/2022 0.6 % Final Abs Neut Date Value Ref Range Status 12/02/2022 1.84 1.45 - 7.50 k/uL Final Abs Lym Date Value Ref Range Status 10/10/2007 1.8 1.0 - 4.0 k/uL Final Abs [place] Date Value Ref Range Status 12/02/2022 0.43 <0.87 k/uL Final Abs Eosin Date Value Ref Range Status 12/02/2022 0.06 <0.46 k/uL Final Abs Baso Date Value Ref Range Status 12/02/2022 <0.03 <0.11 k/uL Final TB: TB Result Date Value Ref Range Status 05/18/2022 Negative Final HBV: Hepatitis B Core Ab, Total Date Value Ref Range Status 02/22/2022 Positive (A) Negative Final Comment: The result suggests either current or past infection with Hepatitis B virus. Non-specific reactivity may at times be seen with this test due to some underlying phenomena. Please correlate with HBsAg result and medical history. HCV: Hep C Antibody IA Date Value Ref R (more content not included)... [facility] 12-20-2022 Miscellaneous Notes I called Iam and gave him the message. No change. Continue Enbrel. Follow-up with me in 3 to 4 months. Patient called and said that the bacterial infection on his arm has cleared up and as of last week, he has restarted his Enbrel. Patient reports that he was not really effected by the medication before but it seems to be working for him better now. Patient said to call if something should change. [phone] documented in this encounter [facility] 12-06-2022 Note HNO ID: [id number] Author: Kellen Meredith MD Service: ? Author Type: Physician Type: Progress Notes Filed: 12/08/2022 11:41 AM Note Text: MD Iam Arriaza December 06, 2022 Referring Provider:Kellen Meredith PCP: Darcie Zavala, OUTSIDE SALES REPRESENTATIVE INSURANCE.BASIN OPERATOR Chief Complaint: Patient presents with: Established Patient Background Rheumatologic History: About 2 years ago, he was tested positive for KAMLA. Per the patient, he did not have any symptoms at that point. It was done as a part of routine screening. He was told that he has lupus based on that positive KAMLA and has been on Plaquenil 200 mg twice daily since then. About 2 months ago, he started noticed pain in his hands bilaterally. The pain is located in his legs and small joints of the hands. It is associated with swelling. The pain is usually at the worst in the morning associated with at least an hour of morning stiffness. He tried nonsteroidal medication with no help. No pain in the other joints. No prior injury or infection. Review of system is positive for Raynaud's. No rash, inflammatory eye disease, inflammatory bowel disease, inflammatory back pain, oral ulcer, fever or any other connective tissue disease symptoms. He presented to emergency room about a week ago and is prescribed prednisone 50 mg. It helps with his pain at the margin. He has a history of cervical spondylosis and underwent cortisone injection for a few times. It helps with his neck pain for few months each time. He also has a history of ulnar nerve entrapment syndrome s/p surgery in 2007. Family history is positive for lupus in daughter. The patient denies family history of RA, , psoriasis, IBD, uveitis, other autoimmune diseases. Labs KAMLA 1:320 SSA + RF neg CCP neg ESR/CRP neg I think that seronegative rheumatoid arthritis is most likely explanation for his joint pain based on the pattern of his arthritis. I do note that he has a low positive KAMLA and SSA. However, he does not have any signs and symptoms of connective tissue disease. Since he is not doing well with hydroxychloroquine, I will stop it. I prescribe methotrexate instead (02/20/22). F/U 05/18/22 Methotrexate does not make a difference. The pain is as bad as it was. He felt better when he was on prednisone burst but the pain and swelling came back almost immediately upon completion. I stop methotrexate and escalated his treatment to Enbrel. F/U 08/17/22 Even though the patient continues to complain of severe pain, his examination today show less magnitude of swelling and tenderness in his hands. I think that Enbrel is working quite well and I will stick with it for now. He should complete steroid taper as prescribed by me. He can continue to use tramadol as needed to help with the pain. It continues to be problematic despite conservative treatment and nitroglycerin cream. His local provider offers treatment with Botox. I think it is a reasonable option. I am okay with him doing Botox treatment. Interim History: Patient returns for follow up, last visit 08/17/2022. Since the last visit, he has been dealing with right elbow issue. He has history of right cubital tunnel release in April [address] Barboza at [facility]. The patient reports his right elbow incision did not heal and continued to drain postoperatively. He was subsequently taken back to the OR in June 2022 for irrigation debridement, which helped with the pain and swelling. Unfortunately, his right elbow becomes more swollen and painful again after his last visit with me. It becomes increasingly more swollen and painful over time. He was treated by his PCP with Bactrim but it did not help. The pain became worse to the point that he was eventually admitted here last week. Right medial elbow aspiration was performed and approximately 4 cc of bloody fluid was collected with no growth and there are no organisms seen on Gram stain. He was seen by Ortho and ID while in the hospital. No surgical intervention is recommended by our orthopedic team but he is recommended to go back to see Dr. Jay at [facility]. ID recommends treatment with antibiotic and he is sent home on linezolid. As a part of her investigations during hospitalization, he is also found to have lung fibrosis on CT scan. Apart from the pain in his right elbow, the other joints seem to do well. No significant pain or swelling since we started him on Enbrel. PAST MEDICAL HISTORY Diagnosis Date Anemia 09/18/2015 Arthritis Chronic obstructive pulmonary disease (COPD) (HCC) Degenerative disc disease, cervical High blood pressure Mass on back 09/17/2015 Systemic lupus erythematosus (HCC) PAST SURGICAL HISTORY Procedure Laterality Date BACK SURGERY HX 11/14/2017 L4/5 laminectomy/decompression COLONOSCOPY 01/18/2014 internal hemorrhoids, rectal inflammation COLONOSCOPY (more content not included)... [facility] 12-06-2022 History of Present illness Narrative MD Iam Arriaza December 06, 2022 Referring Provider:Kellen Meredith PCP: Darcie Zavala APRN.BASIN OPERATOR Chief Complaint: Patient presents with: Established Patient Background Rheumatologic History: About 2 years ago, he was tested positive for KAMLA. Per the patient, he did not have any symptoms at that point. It was done as a part of routine screening. He was told that he has lupus based on that positive KAMLA and has been on Plaquenil 200 mg twice daily since then. About 2 months ago, he started noticed pain in his hands bilaterally. The pain is located in his legs and small joints of the hands. It is associated with swelling. The pain is usually at the worst in the morning associated with at least an hour of morning stiffness. He tried nonsteroidal medication with no help. No pain in the other joints. No prior injury or infection. Review of system is positive for Raynaud's. No rash, inflammatory eye disease, inflammatory bowel disease, inflammatory back pain, oral ulcer, fever or any other connective tissue disease symptoms. He presented to emergency room about a week ago and is prescribed prednisone 50 mg. It helps with his pain at the margin. He has a history of cervical spondylosis and underwent cortisone injection for a few times. It helps with his neck pain for few months each time. He also has a history of ulnar nerve entrapment syndrome s/p surgery in 2007. Family history is positive for lupus in daughter. The patient denies family history of RA, , psoriasis, IBD, uveitis, other autoimmune diseases. Labs KAMLA 1:320 SSA + RF neg CCP neg ESR/CRP neg I think that seronegative rheumatoid arthritis is most likely explanation for his joint pain based on the pattern of his arthritis. I do note that he has a low positive KAMLA and SSA. However, he does not have any signs and symptoms of connective tissue disease. Since he is not doing well with hydroxychloroquine, I will stop it. I prescribe methotrexate instead (02/20/22). F/U 05/18/22 Methotrexate does not make a difference. The pain is as bad as it was. He felt better when he was on prednisone burst but the pain and swelling came back almost immediately upon completion. I stop methotrexate and escalated his treatment to Enbrel. F/U 08/17/22 Even though the patient continues to complain of severe pain, his examination today show less magnitude of swelling and tenderness in his hands. I think that Enbrel is working quite well and I will stick with it for now. He should complete steroid taper as prescribed by me. He can continue to use tramadol as needed to help with the pain. It continues to be problematic despite conservative treatment and nitroglycerin cream. His local provider offers treatment with Botox. I think it is a reasonable option. I am okay with him doing Botox treatment. Interim History: Patient returns for follow up, last visit 08/17/2022. Since the last visit, he has been dealing with right elbow issue. He has history of right cubital tunnel release in April [address] Barboza at [facility]. The patient reports his right elbow incision did not heal and continued to drain postoperatively. He was subsequently taken back to the OR in June 2022 for irrigation debridement, which helped with the pain and swelling. Unfortunately, his right elbow becomes more swollen and painful again after his last visit with me. It becomes increasingly more swollen and painful over time. He was treated by his PCP with Bactrim but it did not help. The pain became worse to the point that he was eventually admitted here last week. Right medial elbow aspiration was performed and approximately 4 cc of bloody fluid was collected with no growth and there are no organisms seen on Gram stain. He was seen by Ortho and ID while in the hospital. No surgical intervention is recommended by our orthopedic team but he is recommended to go back to see Dr. Jay at [facility]. ID recommends treatment with antibiotic and he is sent home on linezolid. As a part of her investigations during hospitalization, he is also found to have lung fibrosis on CT scan. Apart from the pain in his right elbow, the other joints seem to do well. No significant pain or swelling since we started him on Enbrel. PAST MEDICAL HISTORY Diagnosis Date Anemia 09/18/2015 Arthritis Chronic obstructive pulmonary disease (COPD) (HCC) Degenerative disc disease, cervical High blood pressure Mass on back 09/17/2015 Systemic lupus erythematosus (HCC) PAST SURGICAL HISTORY Procedure Laterality Date BACK SURGERY HX 11/14/2017 L4/5 laminectomy/decompression COLONOSCOPY 01/18/2014 internal hemorrhoids, rectal inflammation COLONOSCOPY 06/25/2020 int hemorrhoids, diverticulosis, unremarkable biopsies ESOPHAGOGASTRODUODENOSCOPY TRANSORAL DIAGNOSTIC 02/25/2021 gastritis, reflux esophagitis, unremarkable bxs F CAPSULE ENDOSCOPY 09/11/2021 KNEE SURGERY HX 1989 LEG SURGERY HX LIPOMA (LARGE) 09/26/2015 Excision Left Uppper Back Mass, NERVE SURGERY HX 2009 left arm candelario nerve rerouted Social History Tobacco Use Smoking status: Former Smokeless tobacco: Never Tobacco comments: quit cigs in 2019, currently smokes 2-3 cigars a week Vaping Use Vaping Use: Never used Substance Use Topics Alcohol use: Yes Comment: Social Drug use: No Comment: used marijuana as a teen Health Maintenance ABDOMINAL AORTIC ANEURYSM SCREENING Never done PNEUMOCOCCAL: 63+(1 - PCV) Never done SPIROMETRY Never done ANNUAL PCP TEAM CHRONIC DISEASE VISIT Never done DTAP,TDAP,TD(1 - Tdap) Never done SHINGRIX VACCINE(1 of 2) Never done ALPHA-1 ANTITRYPSIN DEFICIENCY SCREENING Never done COVID-19 VACCINE(3 - Pfizer risk series) due on 11/09/2020 ADVANCE DIRECTIVE DISCUSSION Never done DEPRESSION ASSESSMENT Never done Immunization History Administered Date(s) Administered COVID-19 original vaccine, age 12+ yr, monovalent ([employer] - PURPLE TOP) 09/21/2020 10/12/2020 influenza (HD-IIV) vaccine, age 65+ yr, high dose, PF (FLUZONE HIGH-DOSE) 02/27/2019 influenza (HD-IIV4) vaccine, age 65+ yr, high dose, quadrivalent, PF (FLUZONE HIGH-DOSE) 01/25/2020 Current Outpatient Medications Medication Sig Dispense Refill linezolid (ZYVOX) 600 mg tablet Take 1 tablet by mouth twice daily for 7 days. 14 tablet 0 dilTIAZem CR (TIAZAC, TAZTIA XT) 120 mg 24 hr capsule Take 1 capsule by mouth once daily. 90 capsule 2 apixaban (ELIQUIS) 5 mg tab(s) Take 1 tablet by mouth twice daily. 60 tablet 5 zolpidem (AMBIEN) 10 mg Take 1 tablet by mouth at bedtime as needed (for insomnia.) for up to 30 days. Etanercept (ENBREL SURECLICK) 50 mg/mL (1 mL) Inject 50mg (1 pen) subcutaneously one time a week. 4 mL 5 levothyroxine (SYNTHROID) 50 mcg tablet Take 1 tablet by mouth daily before breakfast. Current Facility-Administered Medications Medication Dose Route Frequency Provider Last Rate Last Admin perflutren lipid microspheres 1.3 mL in NaCl (PF) 0.9% 10 mL injection (DEFINITY) INTRAVENOUS DIRECTED PRN Ladonna Cunningham MD sodium chloride 0.9 % (flush) 10 mL (BD POSIFLUSH) 10 mL INTRAVENOUS DIRECTED PRN Ladonna Cunningham MD ALLERGIES Allergen Reactions Keflex [Cephalexin] Hives Physical Exam: BP 104/68 Temp (Src) 98.2 (Left Tympanic) Wt 168 lb (76.2kg) General: Not pale, no jaundice, not in acute distress Head: Normocephalic, atraumatic Eyes: No redeye, no discharge ENT: No oral/nasal ulcer Neck: No lymphadenopathy Lungs: Normal breath sound, no adventitious sound Abdomen: Soft, not tender CV: Normal S1 S2, no murmur, no rub, pulse regular Skin: No rash, no malar rash, no telangiectasia, no pitting nail/onycholysis, no gross periungual telangiectasia Neuro: Grossly intact, motor power 5 all Joints Right elbow: Swelling over the medial epicondyle consistent with seroma at previous surgical site. It is moderately tender and is mildly warm/red. Incision is well-healed. Other joints are unremarkable without any evidence of synovitis Impression: Seronegative rheumatoid arthritis High risk medication use Raynaud's phenomena Right olecranon bursitis I think that his rheumatoid arthritis is doing well on Enbrel. Physical exam today does not reveal any evidence of active synovitis in any joints. However, he is suffering from right olecranon bursitis which could be related to the surgery he did in April of last year. He was recently admitted and ID is treating him with linezolid. He is scheduled to see Dr. Jay at [facility] again this Tuesday to see if any surgical intervention is needed. In light of this ongoing possible septic bursitis, I would withhold his treatment with Enbrel for now. Recommendations/Plan Plan discussed with patient Return Visit: He is advised to call my office after he sees Dr. Jay this Tuesday to let me know if surgical intervention for the bursitis is needed. I will make a decision about restarting his Enbrel after I know their plan. I spent a total of 40 minutes on the date of the service which included preparing to see the patient, [id number] patient care, completing clinical documentation, obtaining and/or reviewing separately obtained history, performing a medically appropriate examination, counseling and educating the patient/family/caregiver, and ordering medications, tests, or procedures. Kellen Meredith MD Referring Provider:Kellen Meredith PCP: Darcie Zavala APRN.BASIN OPERATOR documented in this encounter [facility] 12-06-2022 Note HNO ID: [id number] Author: Gloria (Livelens)Alma Rosa Service: ? Author Type: ? Type: Progress Notes Filed: 12/08/2022 6:09 PM Note Text: [facility] Refill Assessment Medication(s): Enbrel Patient's current medication list and adherence status to current therapy were reviewed by Specialty Pharmacy clinical pharmacist to identify any new drug interactions or non-compliance to therapy. Therapy continues to be appropriate for disease, patient response, and medical condition. Verification of therapeutic benefit and effectiveness with current therapy was completed. Adverse events, barriers in adherence, and side effects were assessed and addressed if applicable. Will proceed with refill with no changes in therapy - patient progressing towards achieving therapeutic goals based on medication-specific laboratory parameters, disease state markers and outcomes. 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 Patient confirmed: Yes Med/dose confirmed: Yes Supplies needed: No supplies needed Missed doses: No Estimated days supply on hand: 1 Next cycle/dose due: 12/07/22 Copay amount: 0 Delivery method: FedEx Signature required: Waived on patient request Delivery address: [facility] [address] [place] [address] Delivery date: 12/10/22 Questions or concerns for the pharmacist?: No [facility] Specialty Pharmacy Visit Assessment - Inflammatory Conditions: Assessment to use: Refill Treatment Plan Information: Treatment Plan Information: M13.80 - Seronegative arthritis Enbrel - Inject 50mg (1 syringe) subcutaneously one time a week. Estimated Treatment Duration: Until loss of efficacy and/or no longer tolerated. Refill Assessment: Concurrent med therapy and DMARD screening: Yes Assessment of injection issues: Yes Screening for infection: Yes Adverse reactions and mitigation: Yes COPD monitoring ([place]): N/A Assessment of efficacy: Yes Alma Rosa Castro (Livelens) CBC with differential (baseline); complete metabolic panel (baseline); tuberculosis (TB) screening prior to initiating and during therapy (chest X-ray if TB positive); hepatitis B virus (HBV)/hepatitis C virus screening prior to initiating (all patients), HBV carriers (during and for several months following therapy); HIV screening (baseline) (AAD-NPF [Menter 2019]); signs/symptoms of infection, heart failure, hypersensitivity reaction, lupus-like syndrome, or malignancy (eg, splenomegaly, hepatomegaly, abdominal pain, persistent fever, night sweats, weight loss). Monitor improvement of symptoms and physical function assessments. CBC with diff: WBC Date Value Ref Range Status 12/03/2022 4.06 3.70 - 11.00 k/uL Final RBC Date Value Ref Range Status 12/03/2022 3.95 (L) 4.20 - 6.00 m/uL Final Hemoglobin Date Value Ref Range Status 12/03/2022 11.0 (L) 13.0 - 17.0 g/dL Final Hematocrit Date Value Ref Range Status 12/03/2022 32.1 (L) 39.0 - 51.0 % Final MCV Date Value Ref Range Status 12/03/2022 81.3 80.0 - 100.0 fL Final MCH Date Value Ref Range Status 12/03/2022 27.8 26.0 - 34.0 pg Final MCHC Date Value Ref Range Status 12/03/2022 34.3 30.5 - 36.0 g/dL Final RDW-CV Date Value Ref Range Status 12/03/2022 13.8 11.5 - 15.0 % Final Platelet Count Date Value Ref Range Status 12/03/2022 214 150 - 400 k/uL Final MPV Date Value Ref Range Status 12/03/2022 9.0 9.0 - 12.7 fL Final Neutrophils % Date Value Ref Range Status 12/02/2022 53.7 % Final Lymphocytes % Date Value Ref Range Status 12/02/2022 31.0 % Final Monocytes % Date Value Ref Range Status 12/02/2022 12.6 % Final Eosin% Date Value Ref Range Status 10/10/2007 1 0 - 4 % Final Basophils % Date Value Ref Range Status 12/02/2022 0.6 % Final Abs Neut Date Value Ref Range Status 12/02/2022 1.84 1.45 - 7.50 k/uL Final Abs Lym Date Value Ref Range Status 10/10/2007 1.8 1.0 - 4.0 k/uL Final Abs [place] Date Value Ref Range Status 12/02/2022 0.43 <0.87 k/uL Final Abs Eosin Date Value Ref Range Status 12/02/2022 0.06 <0.46 k/uL Final Abs Baso Date Value Ref Range Status 12/02/2022 <0.03 <0.11 k/uL Final TB: TB Result Date Value Ref Range Status 05/18/2022 Negative Final HBV: Hepatitis B Core Ab, Total Date Value Ref Range Status 02/22/2022 Positive (A) Negative Final Comment: The result suggests either current or past infection with Hepatitis B virus. Non-specific reactivity may at times be seen with this test due to some underlying phenomena. Please correlate with HBsAg result and medical history. HCV: Hep C Antibody IA Date Value Ref Range Status 02/22/2022 Positive (A) Negative Final Comment: Confirmation with Hepatitis C RNA has been ordered and charged. HCV Quant RNA by PCR Date Value Ref Range Status 02/22/2022 HCV RNA not detected by PCR. HCV RNA not detected by PCR. Final HIV: No results found for: HIV1AB Current Outpatient Medications on File Prior (more content not included)... [facility] 12-06-2022 History of Present illness Narrative [facility] Refill Assessment Medication(s): Enbrel Patient's current medication list and adherence status to current therapy were reviewed by Specialty Pharmacy clinical pharmacist to identify any new drug interactions or non-compliance to therapy. Therapy continues to be appropriate for disease, patient response, and medical condition. Verification of therapeutic benefit and effectiveness with current therapy was completed. Adverse events, barriers in adherence, and side effects were assessed and addressed if applicable. Will proceed with refill with no changes in therapy - patient progressing towards achieving therapeutic goals based on medication-specific laboratory parameters, disease state markers and outcomes. 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 Patient confirmed: Yes Med/dose confirmed: Yes Supplies needed: No supplies needed Missed doses: No Estimated days supply on hand: 1 Next cycle/dose due: 12/07/22 Copay amount: 0 Delivery method: FedEx Signature required: Waived on patient request Delivery address: [address] [facility] [address] Delivery date: 12/10/22 Questions or concerns for the pharmacist?: No [facility] Specialty Pharmacy Visit Assessment - Inflammatory Conditions: Assessment to use: Refill Treatment Plan Information: Treatment Plan Information: M13.80 - Seronegative arthritis Enbrel - Inject 50mg (1 syringe) subcutaneously one time a week. Estimated Treatment Duration: Until loss of efficacy and/or no longer tolerated. Alma Rosa Castro (Livelens) documented in this encounter [facility] 12-03-2022 Note HNO ID: [id number] Author: Abdirahman (Livelens)Ember Service: Pharmacy Author Type: ? Type: Plan of Care Filed: 12/03/2022 12:35 PM Note Text: PHARMACY BEDSIDE DELIVERY SERVICE Patient Name: Iam Timmons The marked outpatient medications were Filled at: [facility] and delivered to the patient's bedside to [facility] Medication List START taking these medications linezolid 600 mg tablet Commonly known as: ZYVOX Take 1 tablet by mouth twice daily for 7 days. X CONTINUE taking these medications apixaban 5 mg tab(s) Commonly known as: ELIQUIS Take 1 tablet by mouth twice daily. dilTIAZem CR 120 mg 24 hr capsule Commonly known as: TIAZAC, TAZTIA XT Take 1 capsule by mouth once daily. EnbreL SureClick 50 mg/mL (1 mL) Generic drug: Etanercept Inject 50mg (1 pen) subcutaneously one time a week. levothyroxine 50 mcg tablet Commonly known as: SYNTHROID zolpidem 10 mg Commonly known as: AMBIEN Take 1 tablet by mouth at bedtime as needed (for insomnia.) for up to 30 days. You might also be taking other medications not listed above. If you have questions about any of your other medications, talk to the person who prescribed them or your Primary Care Provider. Ember Gary (Livelens) PAGER: [phone] December 03, 2022 12:35 PM [facility] 11-02-2022 Note HNO ID: [id number] Author: Dania Antunez (Livelens) Service: ? Author Type: ? Type: Progress Notes Filed: 11/05/2022 2:05 PM Note Text: [facility] Refill Assessment Medication(s): Enbrel SureClick Patient's current medication list and adherence status to current therapy were reviewed by Specialty Pharmacy clinical pharmacist to identify any new drug interactions or non-compliance to therapy. Therapy continues to be appropriate for disease, patient response, and medical condition. Verification of therapeutic benefit and effectiveness with current therapy was completed. Adverse events, barriers in adherence, and side effects were assessed and addressed if applicable. Will proceed with refill with no changes in therapy - patient progressing towards achieving therapeutic goals based on medication-specific laboratory parameters, disease state markers and outcomes. 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 Patient confirmed: Yes Med/dose confirmed: Yes Supplies needed: No supplies needed Missed doses: No Estimated days supply on hand: 1 Next cycle/dose due: 11/09/22 Copay amount: 0 Delivery method: FedEx Signature required: Waived on patient request Delivery address: [address], [address], [place] [address] Delivery date: 11/11/22 Questions or concerns for the pharmacist?: No [facility] Specialty Pharmacy Visit Assessment - Inflammatory Conditions: Assessment to use: Refill Treatment Plan Information: Treatment Plan Information: M13.80 - Seronegative arthritis Enbrel - Inject 50mg (1 syringe) subcutaneously one time a week. Estimated Treatment Duration: Until loss of efficacy and/or no longer tolerated. Dania Antunez (Front Maker) CBC with differential (baseline); complete metabolic panel (baseline); tuberculosis (TB) screening prior to initiating and during therapy (chest X-ray if TB positive); hepatitis B virus (HBV)/hepatitis C virus screening prior to initiating (all patients), HBV carriers (during and for several months following therapy); HIV screening (baseline) (AAD-NPF [Menter 2019]); signs/symptoms of infection, heart failure, hypersensitivity reaction, lupus-like syndrome, or malignancy (eg, splenomegaly, hepatomegaly, abdominal pain, persistent fever, night sweats, weight loss). Monitor improvement of symptoms and physical function assessments. CBC with diff: WBC Date Value Ref Range Status 09/26/2022 6.47 3.70 - 11.00 k/uL Final RBC Date Value Ref Range Status 09/26/2022 3.92 (L) 4.20 - 6.00 m/uL Final Hemoglobin Date Value Ref Range Status 09/26/2022 10.9 (L) 13.0 - 17.0 g/dL Final Hematocrit Date Value Ref Range Status 09/26/2022 33.1 (L) 39.0 - 51.0 % Final MCV Date Value Ref Range Status 09/26/2022 84.4 80.0 - 100.0 fL Final MCH Date Value Ref Range Status 09/26/2022 27.8 26.0 - 34.0 pg Final MCHC Date Value Ref Range Status 09/26/2022 32.9 30.5 - 36.0 g/dL Final RDW-CV Date Value Ref Range Status 09/26/2022 16.7 (H) 11.5 - 15.0 % Final Platelet Count Date Value Ref Range Status 09/26/2022 228 150 - 400 k/uL Final MPV Date Value Ref Range Status 09/26/2022 10.3 9.0 - 12.7 fL Final Neutrophils % Date Value Ref Range Status 09/25/2022 43.5 % Final Lymphocytes % Date Value Ref Range Status 09/25/2022 41.9 % Final Monocytes % Date Value Ref Range Status 09/25/2022 13.0 % Final Eosin% Date Value Ref Range Status 10/10/2007 1 0 - 4 % Final Basophils % Date Value Ref Range Status 09/25/2022 0.2 % Final Abs Neut Date Value Ref Range Status 09/25/2022 2.75 1.45 - 7.50 k/uL Final Abs Lym Date Value Ref Range Status 10/10/2007 1.8 1.0 - 4.0 k/uL Final Abs [place] Date Value Ref Range Status 09/25/2022 0.82 <0.87 k/uL Final Abs Eosin Date Value Ref Range Status 09/25/2022 0.07 <0.46 k/uL Final Abs Baso Date Value Ref Range Status 09/25/2022 <0.03 <0.11 k/uL Final TB: TB Result Date Value Ref Range Status 05/18/2022 Negative Final HBV: Hepatitis B Core Ab, Total Date Value Ref Range Status 02/22/2022 Positive (A) Negative Final Comment: The result suggests either current or past infection with Hepatitis B virus. Non-specific reactivity may at times be seen with this test due to some underlying phenomena. Please correlate with HBsAg result and medical history. HCV: Hep C Antibody IA Date Value Ref Range Status 02/22/2022 Positive (A) Negative Final Comment: Confirmation with Hepatitis C RNA has been ordered and charged. HCV Quant RNA by PCR Date Value Ref Range Status 02/22/2022 HCV RNA not detected by PCR. HCV RNA not detected by PCR. Final HIV: No results found for: HIV1AB Current Outpatient Medications on File Prior to Visit Medication Sig dilTIAZem CR (TIAZAC, TAZTIA XT) 120 mg 24 hr capsule Take 1 capsule by mouth once daily. apixaban (ELIQUIS) 5 mg tab(s) Take 1 tablet by mouth twice daily. zolpidem (AMBIEN) 10 mg Take 1 tablet (more content not included)... [facility] 11-01-2022 Miscellaneous Notes Called [facility] They said they will Fax stress report Can you please call [facility] and request recent stress test. Thanks Lyn Alicea APRN.BASIN OPERATOR documented in this encounter [facility] 11-01-2022 Miscellaneous Notes Images from the original note were not included. Called [facility] left VM to fax results to us. Lyn Alicea APRN.CORTEZ [facility] Card Nurse Pool Can you please call [facility] and request recent stress test. Thanks Dee documented in this encounter [facility] 10-22-2022 Note HNO ID: [id number] Author: Lyn Alicea APRN.BASIN OPERATOR Service: ? Author Type: Nurse Practitioner Type: Progress Notes Filed: 10/27/2022 1:22 PM Note Text: [facility] [place] Kaveh Steen Department of Cardiovascular Medicine SECTION OF CLINICAL CARDIOLOGY OUTPATIENT VISIT DATE October 22, 2022 OUTPATIENT VISIT TYPE ESTABLISHED Elements of this note, including but not limited to HPI, ROS, Physical Exam, Assessment and Plan were copied and pasted from previous office visit notes completed within our department. Updates have been made where appropriate/noted and reflect current exam and medical decision making from date of this visit. Patient Name: Iam Timmons : 1955 PRIMARY CARE PHYSICIAN: Darcie Zavala APRN.BASIN OPERATOR CHIEF COMPLAINT: Patient presents with: Established Patient Follow-Up: ECHO results Interval Hx: Mr. Timmons comes for a follow up visit. The last office visit visit with Dr. Wang was 07/10/2019. Patient recently seen at [facility] for AF RVR - he was seen in consult by Dr. Coronado. He completed an echo on 10/20/2022: Since last office visit patient has been Checking BP at home 130's from memory Taking Eliquis BID - no GI/ bleeding No chest pain No palps No racing heart Has baseline SOB - able to walk from the parking lot to the office today No D/L No syncope No Le edema; Had a stress test last year - reportedly normal (March 2022) - [facility] Had to have this before arm surgery IMPRESSION/PLAN: 1. Paroxysmal atrial fibrillation. - admission EKG AF RVR - Uncertain duration. - chadsVasc2 score - 2 - started on Eliquis 5 mg twice daily. - discharged home Diltiazem 30 mg 4 times daily - changed to Cardizem CD 120 mg daily for better adherence - regular on exam today - Echocardiogram 10/20/2022: EF 55%. - patient reports recent stress test and [facility] - will attempt to obtain records. 2. Primary hypertension. - Relative hypotension with atrial fibrillation. 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 - recheck echo next year - advised good BP control I spent a total of 28 minutes on the date of the service which included preparing to see the patient, [id number] patient care, completing clinical documentation, performing a medically appropriate examination, counseling and educating the patient/family/caregiver, ordering medications, tests, or procedures, and communicating results to the patient/family/caregiver. Thank you very much for allowing me to assist in the care of Iam Timmons. The above information was discussed at length and detail with the patient who verbalized an understanding of the plan and was given ample opportunity to ask questions. The appropriate follow up has been arranged. I have advised the patient to contact me if any questions/problems arise prior to the follow up. Lyn Alicea APRN.BASIN OPERATOR Cardiology Nurse Practitioner Section of Regional Cardiology [facility] Dept of Cardiovascular Medicine [facility] [place] [address] [address] Office Office October 22, 2022 12:42 PM This note was partially generated using [employer] voice recognition system and may contain errors related to that system including grammar, punctuation, spelling, and words that may be inappropriate. CARDIAC STUDIES: LV Ejection Fraction (%) Date Value 10/20/2022 55 Last ECHO Result Conclusion ECHO Collected: 10/20/2022 1:35 PM (Final result) Impression: CONCLUSIONS: - Technically difficult exam due to body habitus. - Exam indication: Atrial fibrillation - The left ventricle is normal in size. Left ventricular systolic function is normal. EF = 55 ? 5% (2D biplane) Grade I left ventricular diastolic dysfunction. - The right ventricle is normal in size. Right ventricular systolic function is normal. - The visualized aorta is dilated with a maximal dimension of 4.0 cm. - The patient has not had a prior CC echocardiographic exam for comparison. * * * Final * * * Last EKG Result Conclusion EKG Collected: 09/25/2022 3:15 PM (Preliminary result) Impression: ATRIAL FIBRILLATION WITH RAPID VENTRICULAR RESPONSE CANNOT RULE OUT ANTERIOR INFARCT , AGE UNDETERMINED ABNORMAL ECG WHEN COMPARED WITH ECG OF 07-JUN-2018 20:49, ATRIAL FIBRILLATION HAS REPLACED SINUS RHYTHM NONSPECIFIC T WAVE ABNORMALITY NOW EVIDENT IN INFERIOR LEADS Last CT Result Conclusion CT CHEST W IVCON PE Exam End: 09/25/2022 5:01 PM (Final result) Impression: IMPRESSION: No CT evidence of pulmonary embolus. Emphysematous changes. Increased predominantly subpleural/basil (more content not included)... [facility] 10-22-2022 Instructions Lyn Alicea APRN.BASIN OPERATOR - 10/22/2022 2:20 PM EDT I will try and get your stress test report from [facility]. I do not think we need to repeat this since it was so recently I sent you the once daily medication to help keep your heart in rhythm - start this tomorrow. Continue Eliquis - this protects your from stroke. Please call and schedule with Darcie Zavala Follow up in 6 months documented in this encounter [facility] 10-22-2022 History of Present illness Narrative Images from the original note were not included. [facility] [place] Kaveh Steen Department of Cardiovascular Medicine SECTION OF CLINICAL CARDIOLOGY OUTPATIENT VISIT DATE October 22, 2022 OUTPATIENT VISIT TYPE ESTABLISHED Elements of this note, including but not limited to HPI, ROS, Physical Exam, Assessment and Plan were copied and pasted from previous office visit notes completed within our department. Updates have been made where appropriate/noted and reflect current exam and medical decision making from date of this visit. Patient Name: Iam Timmons : 1955 PRIMARY CARE PHYSICIAN: Darcie Zavala APRN.CORTEZ CHIEF COMPLAINT: Patient presents with: Established Patient Follow-Up: ECHO results Interval Hx: Mr. Timmons comes for a follow up visit. The last office visit visit with Dr. Wang was 07/10/2019. Patient recently seen at [facility] for AF RVR - he was seen in consult by Dr. Coronado. He completed an echo on 10/20/2022: Since last office visit patient has been Checking BP at home 130's from memory Taking Eliquis BID - no GI/ bleeding No chest pain No palps No racing heart Has baseline SOB - able to walk from the parking lot to the office today No D/L No syncope No Le edema; Had a stress test last year - reportedly normal (March 2022) - [facility] Had to have this before arm surgery IMPRESSION/PLAN: 1. Paroxysmal atrial fibrillation. - admission EKG AF RVR - Uncertain duration. - chadsVasc2 score - 2 - started on Eliquis 5 mg twice daily. - discharged home Diltiazem 30 mg 4 times daily - changed to Cardizem CD 120 mg daily for better adherence - regular on exam today - Echocardiogram 10/20/2022: EF 55%. - patient reports recent stress test and [facility] - will attempt to obtain records. 2. Primary hypertension. - Relative hypotension with atrial fibrillation. 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 - recheck echo next year - advised good BP control I spent a total of 28 minutes on the date of the service which included preparing to see the patient, [id number] patient care, completing clinical documentation, performing a medically appropriate examination, counseling and educating the patient/family/caregiver, ordering medications, tests, or procedures, and communicating results to the patient/family/caregiver. Thank you very much for allowing me to assist in the care of Iam Timmons. The above information was discussed at length and detail with the patient who verbalized an understanding of the plan and was given ample opportunity to ask questions. The appropriate follow up has been arranged. I have advised the patient to contact me if any questions/problems arise prior to the follow up. Lyn Alicea, [email or web address] Cardiology Nurse Practitioner Section of Regional Cardiology [facility] Dept of Cardiovascular Medicine [facility] [place] [address] [place] [address] Office Office October 22, 2022 12:42 PM This note was partially generated using Quantuvis voice recognition system and may contain errors related to that system including grammar, punctuation, spelling, and words that may be inappropriate. CARDIAC STUDIES: LV Ejection Fraction (%) Date Value 10/20/2022 55 Last ECHO Result Conclusion ECHO Collected: 10/20/2022 1:35 PM (Final result) Impression: CONCLUSIONS: - Technically difficult exam due to body habitus. - Exam indication: Atrial fibrillation - The left ventricle is normal in size. Left ventricular systolic function is normal. EF = 55 5% (2D biplane) Grade I left ventricular diastolic dysfunction. - The right ventricle is normal in size. Right ventricular systolic function is normal. - The visualized aorta is dilated with a maximal dimension of 4.0 cm. - The patient has not had a prior CC echocardiographic exam for comparison. * * * Final * * * Last EKG Result Conclusion EKG Collected: 09/25/2022 3:15 PM (Preliminary result) Impression: ATRIAL FIBRILLATION WITH RAPID VENTRICULAR RESPONSE CANNOT RULE OUT ANTERIOR INFARCT , AGE UNDETERMINED ABNORMAL ECG WHEN COMPARED WITH ECG OF 07-JUN-2018 20:49, ATRIAL FIBRILLATION HAS REPLACED SINUS RHYTHM NONSPECIFIC T WAVE ABNORMALITY NOW EVIDENT IN INFERIOR LEADS Last CT Result Conclusion CT CHEST W IVCON PE Exam End: 09/25/2022 5:01 PM (Final result) Impression: IMPRESSION: No CT evidence of pulmonary embolus. Emphysematous changes. Increased predominantly subpleural/basilar interstitial and traction bronchiectasis in both lungs. _ _ Motor Equipment Lieutenant: PSCB Transcribe Date/Time: Sep 25 2022 5:09P Dictated by : GOPAL ROSADO MD This examination was interpreted and the report reviewed and electronically signed by: GOPAL ROSADO MD on Sep 25 2022 5:14PM EST LABS: Sodium Date Value 09/26/2022 139 mmol/L 09/25/2022 134 mmol/L 02/09/2021 133 mmol/L 10/29/2018 138 mEq/L 06/07/2018 137 mEq/L Potassium Date Value 09/26/2022 4.0 mmol/L 09/25/2022 4.1 mmol/L 02/09/2021 4.7 MEQ/L 10/29/2018 3.9 mEq/L 06/07/2018 3.8 mEq/L BUN (mg/dL) Date Value 09/26/2022 14 09/25/2022 14 05/18/2022 16 03/23/2022 18 02/09/2021 19 10/29/2018 17 06/07/2018 14 04/26/2017 19 09/02/2016 16 Creatinine Date Value 09/26/2022 1.03 mg/dL 09/25/2022 1.21 mg/dL 05/18/2022 0.92 mg/dL 03/23/2022 0.85 mg/dL 02/09/2021 1.37 MG/DL 10/29/2018 0.91 mg/dL 06/07/2018 1.09 mg/dL 04/26/2017 0.86 mg/dL 09/02/2016 0.92 mg/dL Magnesium (mg/dL) Date Value 09/26/2022 1.9 09/25/2022 1.7 10/29/2018 1.9 10/10/2007 2.0 Hemoglobin Date Value 09/26/2022 10.9 g/dL 09/25/2022 11.1 g/dL 02/25/2021 11.6 g/dL 03/18/2009 12.8 G/DL HGB (g/dL) Date Value 10/29/2018 13.0 06/07/2018 12.5 No results found for: PROBNP RADHA High Sensitivity (ng/L) Date Value 09/25/2022 24 09/25/2022 29 09/25/2022 31 Cholesterol, Total (no units) Date Value 02/09/2021 92 HDL Cholesterol (mg/dL) Date Value 09/02/2016 49 HDL (MG/DL) Date Value 02/09/2021 28 Triglyceride Date Value 02/09/2021 107 MG/DL 09/02/2016 91 mg/dL LDL (MG/DL) Date Value 02/09/2021 43 TSH Date Value 09/25/2022 3.930 mIU/L 02/09/2021 4.94 IU/ml 04/26/2017 2.54 uIU/mL No results found for: INR There were no tests performed for review. PHYSICAL EXAMINATION: Vitals: BP 132/70 Pulse 92 Ht 182.9 cm (6') Wt 81.2 kg (179 lb) SpO2 96% BMI 24.28 kg/m General: Well appearing, in no acute distress. Skin: No clubbing, no cyanosis. Eyes: Extra ocular movements intact Oropharynx: Teeth in good repair. Neck: No jugular venous distention, no carotid bruits, carotids have a normal upstroke, no palpable thyromegaly. Lungs: Clear to auscultation bilaterally, no wheezing or rhonchi. Heart: Regular rhythm, PMI not displaced, S1, S2 normal, no S3, no S4, no heaves, no rub and no murmur. Abdomen: Soft, nontender, bowel sounds normal, no palpable organomegaly, no bruits. Extremities: No peripheral edema . Grade 2/4 distal pulses bilaterally. Neuro: Oriented to person, place and time, alert, cooperative, gait coordinated. REVIEW OF SYSTEMS: GENERAL: Negative for: Weight loss or gain, Fever or Chills, Weakness and Sleep difficulties. HEENT: Negative for: Headache, Impaired Vision, Glasses, Hearing Impairment, Ringing in Ears, Nosebleeds, Poor dental care, Bleeding Gums, Dentures NECK: Negative for: Swelling, Pain, Stiffness RESPIRATORY: Negative for: Cough, Blood in Sputum, Shortness of breath, Wheezing, Apnea GASTROINTESTINAL: Negative for: Trouble swallowing, Heartburn, Change in bowel habits, Blood in stool, Dark black stools MUSCULOSKELETAL: Negative for: Muscle or joint pain, Stiffness , Joint swelling NEUROLOGIC/PSYCHIATRIC: Negative for: Weakness, Paralysis, Numbness, Tingling, Tremor, Nervousness, Depressed mood, Memory loss SKIN: Negative for: Rashes, Itching HEMATOLOGICAL/LYMPHATIC: Negative for: Easy bruising , Easy bleeding ENDOCRINE: Negative for: Heat or cold intolerance, Excessive sweating, Frequent urination, Frequent thirst ALLERGIES: Keflex [Cephalexin] PAST MEDICAL HISTORY: PAST MEDICAL HISTORY Diagnosis Date Anemia 09/18/2015 Arthritis Chronic obstructive pulmonary disease (COPD) (HCC) Degenerative disc disease, cervical High blood pressure Mass on back 09/17/2015 Systemic lupus erythematosus (HCC) SOCIAL HISTORY: Social History Tobacco Use Smoking status: Former Smokeless tobacco: Never Tobacco comments: quit cigs in 2019, currently smokes 2-3 cigars a week Vaping Use Vaping Use: Never used Substance Use Topics Alcohol use: Yes Comment: Social Drug use: No Comment: used marijuana as a teen FAMILY HISTORY: FAMILY HISTORY Problem Relation Age of Onset Hypertension Mother Diabetes Mother Stroke Mother Cancer Mother lymphoma Cancer Father mesothelioma Colon Cancer Maternal Grandmother Arthritis Other other (Myocardial infarction) Other I have confirmed and edited as necessary, the PFSH and ROS obtained by others. Lyn Alicea, OUTSIDE SALES REPRESENTATIVE INSURANCE.BASIN OPERATOR CURRENT MEDICATIONS: Current Outpatient Medications Medication Sig apixaban (ELIQUIS) 5 mg tab(s) Take 1 tablet by mouth twice daily. dilTIAZem (CARDIZEM) 30 mg tablet Take 1 tablet by mouth every 6 hours. zolpidem (AMBIEN) 10 mg Take 1 tablet by mouth at bedtime as needed (for insomnia.) for up to 30 days. Etanercept (ENBREL SURECLICK) 50 mg/mL (1 mL) Inject 50mg (1 pen) subcutaneously one time a week. levothyroxine (SYNTHROID) 50 mcg tablet Take 1 tablet by mouth daily before breakfast. Current Facility-Administered Medications Medication Dose Route Frequency perflutren lipid microspheres 1.3 mL in NaCl (PF) 0.9% 10 mL injection (DEFINITY) INTRAVENOUS DIRECTED PRN sodium chloride 0.9 % (flush) 10 mL (BD POSIFLUSH) 10 mL INTRAVENOUS DIRECTED PRN documented in this encounter [facility] 10-07-2022 Note HNO ID: [id number] Author: Haven Oconnor (Livelens) Service: ? Author Type: ? Type: Progress Notes Filed: 10/08/2022 3:30 PM Note Text: [facility] Specialty Refill Assessment Medication(s): Enbrel Patient's current medication list and adherence status to current therapy were reviewed by Specialty Pharmacy clinical pharmacist to identify any new drug interactions or non-compliance to therapy. Therapy continues to be appropriate for disease, patient response, and medical condition. Verification of therapeutic benefit and effectiveness with current therapy was completed. Adverse events, barriers in adherence, and side effects were assessed and addressed if applicable. Will proceed with refill with no changes in therapy - patient progressing towards achieving therapeutic goals based on medication-specific laboratory parameters, disease state markers and outcomes. 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 Patient confirmed: Yes Med/dose confirmed: Yes Supplies needed: No supplies needed Missed doses: No Estimated days supply on hand: 1 Next cycle/dose due: 10/12/22 Copay amount: 0 Payment confirmed: Yes Delivery method: FedEx Signature required: No Delivery address: [facility] [address], [address] [place] [address] Delivery date: 10/12/22 Questions or concerns for the pharmacist?: No [facility] Specialty Pharmacy Visit Assessment - Inflammatory Conditions: Assessment to use: Refill Treatment Plan Information: Treatment Plan Information: M13.80 - Seronegative arthritis Enbrel - Inject 50mg (1 syringe) subcutaneously one time a week. Estimated Treatment Duration: Until loss of efficacy and/or no longer tolerated. Refill Assessment: Concurrent med therapy and DMARD screening: Yes Assessment of injection issues: Yes Screening for infection: Yes Adverse reactions and mitigation: Yes COPD monitoring ([place]): N/A Assessment of efficacy: Yes Haven Oconnor (Livelens) CBC with differential (baseline); complete metabolic panel (baseline); tuberculosis (TB) screening prior to initiating and during therapy (chest X-ray if TB positive); hepatitis B virus (HBV)/hepatitis C virus screening prior to initiating (all patients), HBV carriers (during and for several months following therapy); HIV screening (baseline) (AAD-NPF [Menter 2019]); signs/symptoms of infection, heart failure, hypersensitivity reaction, lupus-like syndrome, or malignancy (eg, splenomegaly, hepatomegaly, abdominal pain, persistent fever, night sweats, weight loss). Monitor improvement of symptoms and physical function assessments. CBC with diff: WBC Date Value Ref Range Status 09/26/2022 6.47 3.70 - 11.00 k/uL Final RBC Date Value Ref Range Status 09/26/2022 3.92 (L) 4.20 - 6.00 m/uL Final Hemoglobin Date Value Ref Range Status 09/26/2022 10.9 (L) 13.0 - 17.0 g/dL Final Hematocrit Date Value Ref Range Status 09/26/2022 33.1 (L) 39.0 - 51.0 % Final MCV Date Value Ref Range Status 09/26/2022 84.4 80.0 - 100.0 fL Final MCH Date Value Ref Range Status 09/26/2022 27.8 26.0 - 34.0 pg Final MCHC Date Value Ref Range Status 09/26/2022 32.9 30.5 - 36.0 g/dL Final RDW-CV Date Value Ref Range Status 09/26/2022 16.7 (H) 11.5 - 15.0 % Final Platelet Count Date Value Ref Range Status 09/26/2022 228 150 - 400 k/uL Final MPV Date Value Ref Range Status 09/26/2022 10.3 9.0 - 12.7 fL Final Neutrophils % Date Value Ref Range Status 09/25/2022 43.5 % Final Lymphocytes % Date Value Ref Range Status 09/25/2022 41.9 % Final Monocytes % Date Value Ref Range Status 09/25/2022 13.0 % Final Eosin% Date Value Ref Range Status 10/10/2007 1 0 - 4 % Final Basophils % Date Value Ref Range Status 09/25/2022 0.2 % Final Abs Neut Date Value Ref Range Status 09/25/2022 2.75 1.45 - 7.50 k/uL Final Abs Lym Date Value Ref Range Status 10/10/2007 1.8 1.0 - 4.0 k/uL Final Abs [place] Date Value Ref Range Status 09/25/2022 0.82 <0.87 k/uL Final Abs Eosin Date Value Ref Range Status 09/25/2022 0.07 <0.46 k/uL Final Abs Baso Date Value Ref Range Status 09/25/2022 <0.03 <0.11 k/uL Final TB: TB Result Date Value Ref Range Status 05/18/2022 Negative Final HBV: Hepatitis B Core Ab, Total Date Value Ref Range Status 02/22/2022 Positive (A) Negative Final Comment: The result suggests either current or past infection with Hepatitis B virus. Non-specific reactivity may at times be seen with this test due to some underlying phenomena. Please correlate with HBsAg result and medical history. HCV: Hep C Antibody IA Date Value Ref Range Status 02/22/2022 Positive (A) Negative Final Comment: Confirmation with Hepatitis C RNA has been ordered and charged. HCV Quant RNA by PCR Date Value Ref Range Status 02/22/2022 HCV RNA not detected by PCR. HCV RNA not detected by PCR. Final HIV: No results found for: HIV1AB Current Outpatient Medications on F (more content not included)... [facility] 10-07-2022 History of Present illness Narrative [facility] Refill Assessment Medication(s): Enbrel Patient's current medication list and adherence status to current therapy were reviewed by Specialty Pharmacy clinical pharmacist to identify any new drug interactions or non-compliance to therapy. Therapy continues to be appropriate for disease, patient response, and medical condition. Verification of therapeutic benefit and effectiveness with current therapy was completed. Adverse events, barriers in adherence, and side effects were assessed and addressed if applicable. Will proceed with refill with no changes in therapy - patient progressing towards achieving therapeutic goals based on medication-specific laboratory parameters, disease state markers and outcomes. 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 Patient confirmed: Yes Med/dose confirmed: Yes Supplies needed: No supplies needed Missed doses: No Estimated days supply on hand: 1 Next cycle/dose due: 10/12/22 Copay amount: 0 Payment confirmed: Yes Delivery method: FedEx Signature required: No Delivery address: [address], [address] [address] Delivery date: 10/12/22 Questions or concerns for the pharmacist?: No [facility] Specialty Pharmacy Visit Assessment - Inflammatory Conditions: Assessment to use: Refill Treatment Plan Information: Treatment Plan Information: M13.80 - Seronegative arthritis Enbrel - Inject 50mg (1 syringe) subcutaneously one time a week. Estimated Treatment Duration: Until loss of efficacy and/or no longer tolerated. Haven Oconnor (Livelens) documented in this encounter [facility] 09-26-2022 Note HNO ID: [id number] Author: Ladonna Cunningham MD Service: Hospital Medicine Author Type: Physician Type: Progress Notes Filed: 09/26/2022 8:29 AM Note Text: DEPARTMENT OF HOSPITAL MEDICINE PROGRESS NOTE SERVICE DATE: 09/26/2022 SERVICE TIME: 8:04 AM Hospital Medicine/Primary Attending: Ladonna Cunningham MD NIGHT AND WEEKEND COVERAGE: [place] COVERAGE: Days: [phone], please page attending physician. Nights: [phone], please page [place] [facility] Night coverage pager [phone]. Subjective INTERVAL HPI: - Reports episode of chest pressure across chest, primarily on left side on Tuesday, improved with taking a shower, lasted several hours - Yesterday, felt dizzy, weak, nauseous prompting ER visit - Rates remain ~110 despite cardizem gtt - Awaiting Cardiology evaluation - No chest pain or shortness of breath currently Current Facility-Administered Medications Medication Dose Route Frequency NaCl 0.9% iv flush bag 20 mL INTRAVENOUS PRN NaCl 0.9% iv flush bag 20 mL INTRAVENOUS PRN sodium chloride 0.9 % (flush) 2-10 mL (BD POSIFLUSH) 2-10 mL INTRAVENOUS DIRECTED PRN And perflutren lipid microspheres 1.1 mg/mL 1.3 mL injection (DEFINITY) 1.3 mL INTRAVENOUS DIRECTED PRN dilTIAZem 100 mg in D5W 100 mL Vial-Bag (CARDIZEM) 2.5 mg/hr INTRAVENOUS CONTINUOUS levothyroxine 50 mcg tab(s) (SYNTHROID) 50 mcg ORAL BEFORE BREAKFAST DAILY apixaban 5 mg tab(s) (ELIQUIS) 5 mg ORAL BID mometasone 220 mcg/ actuation (14) 1 Puff inhaler (ASMANEX) 1 Puff INHALATION DAILY And umeclidinium 62.5 mcg - vilanterol 25 mcg inhaler (ANORO ELLIPTA) 1 Inhalation INHALATION DAILY celecoxib 100 mg cap(s) (CeleBREX) 100 mg ORAL BID pantoprazole DR 40 mg tab(s) (PROTONIX) 40 mg ORAL DAILY (6 AM) traZODone 50 mg tab(s) (DESYREL) 50 mg ORAL AT BEDTIME traMADol 50 mg tab(s) (ULTRAM) 50 mg ORAL q 12 H PRN acetaminophen 650 mg tab(s) (TYLENOL) 650 mg ORAL q 6 H PRN albuterol HFA 90 mcg/actuation 2 Puff (PROVENTIL HFA, VENTOLIN HFA) 2 Puff INHALATION q 4 H PRN Objective PHYSICAL EXAM: BP 115/73 Pulse 101 Temp (Src) 98.6 (Temporal) Resp 18 Ht 5' 10 (1.78m) SpO2 98% O2 Therapy: Room Air Physical Exam Performed GENERAL: Alert, no distress, cooperative SKIN: Skin color, texture, turgor normal. No rashes or lesions. HEAD/SINUSES: No significant findings EYES: EOMI BACK: Back symmetric, Normal curvature, ROM normal LUNGS: Lungs clear to auscultation, Good diaphragmatic excursion CARDIAC: Normal S1 and S2; no rubs, murmurs, or gallops ABDOMEN: Abdomen soft, non-tender, BS normal, No masses or organomegaly EXTREMITIES: Normal exam of the extremities NEURO: Grossly normal cognition, motor function, and cranial nerves III-XII Lines, Drains, and Airways None Reviewed lines and needs to be continued: REASONS: Intravenous fluids and Telemetry DATA: Diagnostic tests reviewed for today's visit: Most recent labs Most recent imaging Most recent EKG Assessment/Plan Problem List New onset atrial fibrillation (HCC) POA: Yes Anemia POA: Yes Chronic obstructive pulmonary disease (COPD) (HCC) POA: Yes Benign prostatic hyperplasia POA: Yes Hypothyroidism POA: Yes Raynaud's disease POA: Yes Rheumatoid arthritis (HCC) POA: Yes Systemic lupus erythematosus-related syndrome (HCC) POA: Yes Essential hypertension POA: Yes Hypotension POA: Yes Elevated brain natriuretic peptide (BNP) level POA: Yes Hyponatremia POA: Yes Elevated d-dimer POA: Yes Atrial fibrillation with RVR (HCC) POA: Yes HOSPITAL COURSE: Iam Timmons is a 67 year old male with a PMH of COPD, RA presenting with new onset atrial fib with RVR, with chest pain, dizziness, weakness. Reassuringly, negative stress test in March; plan to keep in house for rate control, Cardiology evaluation. Course complicated by mild hyponatremia and CHRIS; will have Nephro evaluate. New onset atrial fibrillation (HCC) - EKG: afib with RVR @ 117 bpm - No history of Afib - HsT 31, 29, 24 - Mg 1.7/K 4.1 - Daily BMP, Mg - CHADSVASC 2 - Tele, ECHO - Continues on eliquis - Cardizem gtt -> administer additional bolus and increase gtt to 5 - Keep Mg >2, K>4 - Cardiology consult - March 2022 LILLIE: Normal LV, EF 60%, normal valves - March 2022 Stress: Technically adquate, peak exercise EKG without ischemic changes, no cardiac dysrythmias Hypotension - Currently on Norvasc, Flomax, and Proscar - Also on nitro-BID for Raynaud's - Hold above meds, lindy while patient is on cardizem gtt - Consider d/c of nitro given low blood pressures - Cardiology consult Elevated brain natriuretic peptide (BNP) level - BNP 2,997 - Shortness of breath on exertion x months - Likely elevated in setting of atrial fib - Monitor Acute Kidney Injury Hyponatremia - Na 134, given IVF in ED - AM BMP pending - Monitor - Nephro on board Elevated d-dimer - D-dimer 2,660 - CT PE negative - No leg/calf ten (more content not included)... [facility] 09-10-2022 Note HNO ID: [id number] Author: Carmen Alvarado Service: ? Author Type: ? Type: Progress Notes Filed: 09/14/2022 4:57 PM Note Text: [facility] Specialty Refill Assessment Medication(s): Enbrel Patient's current medication list and adherence status to current therapy were reviewed by Specialty Pharmacy clinical pharmacist to identify any new drug interactions or non-compliance to therapy. Therapy continues to be appropriate for disease, patient response, and medical condition. Verification of therapeutic benefit and effectiveness with current therapy was completed. Adverse events, barriers in adherence, and side effects were assessed and addressed if applicable. Will proceed with refill with no changes in therapy - patient progressing towards achieving therapeutic goals based on medication-specific laboratory parameters, disease state markers and outcomes. 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 Patient confirmed: Yes Med/dose confirmed: Yes Supplies needed: No supplies needed Missed doses: No Estimated days supply on hand: 1 Next cycle/dose due: 09/14/22 Copay amount: 0 Payment confirmed: Yes Delivery method: FedEx Signature required: No Delivery address: [facility] [address] [place] [address] Delivery date: 09/16/22 Questions or concerns for the pharmacist?: No (Patient said switching to pens has help make injection easier and everything is going well now) [facility] Visit Assessment - Inflammatory Conditions: Assessment to use: Refill Treatment Plan Information: Treatment Plan Information: M13.80 - Seronegative arthritis Enbrel - Inject 50mg (1 syringe) subcutaneously one time a week. Estimated Treatment Duration: Until loss of efficacy and/or no longer tolerated. Refill Assessment: Concurrent med therapy and DMARD screening: Yes Assessment of injection issues: Yes Screening for infection: Yes Adverse reactions and mitigation: Yes COPD monitoring ([place]): N/A Assessment of efficacy: Yes Carmen Alvarado CPhT, Inflammatory/Allergy [facility] [phone] CBC with differential (baseline); complete metabolic panel (baseline); tuberculosis (TB) screening prior to initiating and during therapy (chest X-ray if TB positive); hepatitis B virus (HBV)/hepatitis C virus screening prior to initiating (all patients), HBV carriers (during and for several months following therapy); HIV screening (baseline) (AAD-NPF [Menter 2019]); signs/symptoms of infection, heart failure, hypersensitivity reaction, lupus-like syndrome, or malignancy (eg, splenomegaly, hepatomegaly, abdominal pain, persistent fever, night sweats, weight loss). Monitor improvement of symptoms and physical function assessments. CBC with diff: WBC Date Value Ref Range Status 05/18/2022 5.74 3.70 - 11.00 k/uL Final RBC Date Value Ref Range Status 05/18/2022 4.08 (L) 4.20 - 6.00 m/uL Final Hemoglobin Date Value Ref Range Status 05/18/2022 11.6 (L) 13.0 - 17.0 g/dL Final Hematocrit Date Value Ref Range Status 05/18/2022 34.4 (L) 39.0 - 51.0 % Final MCV Date Value Ref Range Status 05/18/2022 84.3 80.0 - 100.0 fL Final MCH Date Value Ref Range Status 05/18/2022 28.4 26.0 - 34.0 pg Final MCHC Date Value Ref Range Status 05/18/2022 33.7 30.5 - 36.0 g/dL Final RDW-CV Date Value Ref Range Status 05/18/2022 15.4 (H) 11.5 - 15.0 % Final Platelet Count Date Value Ref Range Status 05/18/2022 307 150 - 400 k/uL Final MPV Date Value Ref Range Status 05/18/2022 9.2 9.0 - 12.7 fL Final Neutrophils % Date Value Ref Range Status 05/18/2022 72.2 % Final Lymphocytes % Date Value Ref Range Status 05/18/2022 14.6 % Final Monocytes % Date Value Ref Range Status 05/18/2022 10.1 % Final Eosin% Date Value Ref Range Status 10/10/2007 1 0 - 4 % Final Basophils % Date Value Ref Range Status 05/18/2022 0.3 % Final Abs Neut Date Value Ref Range Status 05/18/2022 4.14 1.45 - 7.50 k/uL Final Abs Lym Date Value Ref Range Status 10/10/2007 1.8 1.0 - 4.0 k/uL Final Abs [place] Date Value Ref Range Status 05/18/2022 0.58 <0.87 k/uL Final Abs Eosin Date Value Ref Range Status 05/18/2022 0.12 <0.46 k/uL Final Abs Baso Date Value Ref Range Status 05/18/2022 <0.03 <0.11 k/uL Final TB: TB Result Date Value Ref Range Status 05/18/2022 Negative Final HBV: Hepatitis B Core Ab, Total Date Value Ref Range Status 02/22/2022 Positive (A) Negative Final Comment: The result suggests either current or past infection with Hepatitis B virus. Non-specific reactivity may at times be seen with this test due to some underlying phenomena. Please correlate with HBsAg result and medical history. HCV: Hep C Antibody IA Date Value Ref Range Status 02/22/2022 Positive (A) Negative Final Comment: Confirmation with Hepatitis C RNA has been ordered and charged. HCV Quant RNA by PCR Date Value Ref Range Status (more content not included)... [facility] 09-06-2022 Miscellaneous Notes Most recent Rheumatology visit: 08/17/2022 (with Kellen Meredith) Recent Office Visits - This Specialty 08/17/2022 Seronegative inflammatory arthritis Rheumatology Kellen Meredith MD 05/18/2022 Seronegative inflammatory arthritis Rheumatology Kellen Meredith MD 03/02/2022 Seronegative inflammatory arthritis Rheumatology Kellen Meredith MD Upcoming Rheumatology Appointments - Next 365 Days Visit Type Date Time Department ARGELIA EST [facility] MED[facility] 12/06/2022 4:30 PM [facility] CBC: CBC Latest Ref Rng & Units 03/23/2022 05/18/2022 WBC 3.70 - 11.00 k/uL 4.35 5.74 HGB 13 - 16.5 g/dL - - HEMOGLOBIN 13.0 - 17.0 g/dL 12.7(L) 11.6(L) HEMATOCRIT 39.0 - 51.0 % 38.0(L) 34.4(L) PLATELETS 150 - 400 k/uL 257 307 ABS NEUT (ANC) 1.45 - 7.50 k/uL 3.20 4.14 NEUTROPHILS ABSOLUTE 2.0 - 7.7 k/uL - - LYMPHOCYTES, ABSOLUTE 0.83 - 4.51 - - ABS LYM 1.0 - 4.0 k/uL - - ABS LYMPH 1.00 - 4.00 k/uL 0.60(L) 0.84(L) Vitamin D: None on file in the last 6 months LFT: None on file in the last 6 months Hepatic Function: Creatinine: Creatinine Latest Ref Rng & Units 03/23/2022 05/18/2022 CREAT 0.73 - 1.22 mg/dL 0.85 0.92 ESR/CRP: ESR, WSR Latest Ref Rng & Units 03/23/2022 05/18/2022 WSR 0 - 15 mm/hr 22(H) 16(H) CRP Latest Ref Rng & Units 03/23/2022 05/18/2022 CRP <0.9 mg/dL 0.6 0.4 Uric Acid: None on file in the last 6 months Open Standing (Multiple Instance) Lab Orders None Open Future (Single Instance) Lab Orders Expected Expires Ordered ALT/SGPT [SQALT] 11/29/22 01/29/23 08/17/22 Auth. provider: Kellen Meredith MD Assoc. diagnoses: Seronegative inflammatory arthritis AST/SGOT BLD [SQAST] 11/29/22 01/29/23 08/17/22 Auth. provider: Kellen Meredith MD Assoc. diagnoses: Seronegative inflammatory arthritis BUN BLOOD [SQBUN] 11/29/22 01/29/23 08/17/22 Auth. provider: Kellen Meredith MD Assoc. diagnoses: Seronegative inflammatory arthritis C-REACTIVE PROTEIN (CRP) [SQCRP] 11/29/22 01/29/23 08/17/22 Auth. provider: Kellen Meredith MD Assoc. diagnoses: Seronegative inflammatory arthritis CREATININE BLD [SQCRET] 11/29/22 01/29/23 08/17/22 Auth. provider: Kellen Meredith MD Assoc. diagnoses: Seronegative inflammatory arthritis SED RATE WESTERGREN [SQWSR] 11/29/22 01/29/23 08/17/22 Auth. provider: Kellen Meredith MD Assoc. diagnoses: Seronegative inflammatory arthritis CBC + DIFF [SQCBCDIF] 11/29/22 01/29/23 08/17/22 Auth. provider: Kellen Meredtih MD Assoc. diagnoses: Seronegative inflammatory arthritis Requested Prescriptions Pending Prescriptions Disp Refills predniSONE (DELTASONE) 5 mg tablet [Pharmacy Med Name: PREDNISONE 5 MG TABLET] 70 tablet 0 Si TABS DAILY FOR 7 DAYS, THEN 3 TABS DAILY FOR 7 DAYS, THEN 2 TABS DAILY FOR 7 DAYS, THEN 1 TAB DAILY FOR 7 DAYS Thank you, Azucena Rose RN Spoke to patient and fingers are still sore/tender/stiff. Azucena Rose RN documented in this encounter [facility] 08-17-2022 Note HNO ID: [id number] Author: Kellen Meredith MD Service: ? Author Type: Physician Type: Progress Notes Filed: 08/17/2022 3:09 PM Note Text: MD Iam Arriaza Yohana Stan August 17, 2022 Referring Provider: PCP: Darcie Zavala APRN.CNP Chief Complaint: Patient presents with: Established Patient Background Rheumatologic History: About 2 years ago, he was tested positive for KAMLA. Per the patient, he did not have any symptoms at that point. It was done as a part of routine screening. He was told that he has lupus based on that positive KAMLA and has been on Plaquenil 200 mg twice daily since then. About 2 months ago, he started noticed pain in his hands bilaterally. The pain is located in his legs and small joints of the hands. It is associated with swelling. The pain is usually at the worst in the morning associated with at least an hour of morning stiffness. He tried nonsteroidal medication with no help. No pain in the other joints. No prior injury or infection. Review of system is positive for Raynaud's. No rash, inflammatory eye disease, inflammatory bowel disease, inflammatory back pain, oral ulcer, fever or any other connective tissue disease symptoms. He presented to emergency room about a week ago and is prescribed prednisone 50 mg. It helps with his pain at the margin. He has a history of cervical spondylosis and underwent cortisone injection for a few times. It helps with his neck pain for few months each time. He also has a history of ulnar nerve entrapment syndrome s/p surgery in 2007. Family history is positive for lupus in daughter. The patient denies family history of RA, , psoriasis, IBD, uveitis, other autoimmune diseases. Labs KAMLA 1:320 SSA + RF neg CCP neg ESR/CRP neg I think that seronegative rheumatoid arthritis is most likely explanation for his joint pain based on the pattern of his arthritis. I do note that he has a low positive KAMLA and SSA. However, he does not have any signs and symptoms of connective tissue disease. Since he is not doing well with hydroxychloroquine, I will stop it. I prescribe methotrexate instead (02/20/22). F/U 05/18/22 Methotrexate does not make a difference. The pain is as bad as it was. He felt better when he was on prednisone burst but the pain and swelling came back almost immediately upon completion. I stop methotrexate and escalated his treatment to Enbrel Interim History: Patient returns for follow up, last visit 05/18/2022. He has been on 3 doses of Enbrel so far. Enbrel has been helping with the swelling. However, pain is still pretty much the same. I also just gave him another course of steroid taper few weeks ago. Raynaud's phenomena continues to be problematic. PAST MEDICAL HISTORY Diagnosis Date Anemia 09/18/2015 Arthritis Chronic obstructive pulmonary disease (COPD) (HCC) Degenerative disc disease, cervical High blood pressure Mass on back 09/17/2015 Systemic lupus erythematosus (HCC) PAST SURGICAL HISTORY Procedure Laterality Date BACK SURGERY HX 11/14/2017 L4/5 laminectomy/decompression COLONOSCOPY 01/18/2014 internal hemorrhoids, rectal inflammation COLONOSCOPY 06/25/2020 int hemorrhoids, diverticulosis, unremarkable biopsies ESOPHAGOGASTRODUODENOSCOPY TRANSORAL DIAGNOSTIC 02/25/2021 gastritis, reflux esophagitis, unremarkable bxs F CAPSULE ENDOSCOPY 09/11/2021 KNEE SURGERY HX 1989 LEG SURGERY HX LIPOMA (LARGE) 09/26/2015 Excision Left Uppper Back Mass, NERVE SURGERY HX 2008 left arm candelario nerve rerouted Social History Tobacco Use Smoking status: Former Smokeless tobacco: Never Tobacco comments: quit cigs in 2019, currently smokes 2-3 cigars a week Vaping Use Vaping Use: Never used Substance Use Topics Alcohol use: Yes Comment: Social Drug use: No Comment: used marijuana as a teen Health Maintenance ABDOMINAL AORTIC ANEURYSM SCREENING Never done PNEUMOCOCCAL: 63+(1 - PCV) Never done SPIROMETRY Never done DTAP,TDAP,TD(1 - Tdap) Never done SHINGRIX VACCINE(1 of 2) Never done ALPHA-1 ANTITRYPSIN DEFICIENCY SCREENING Never done ANNUAL PCP TEAM CHRONIC DISEASE VISIT due on 08/18/2018 COVID-19 VACCINE(3 - Pfizer risk series) due on 11/09/2020 ADVANCE DIRECTIVE DISCUSSION Never done DEPRESSION ASSESSMENT Never done Immunization History Administered Date(s) Administered COVID-19 original vaccine, age 12+ yr, monovalent ([employer] - PURPLE TOP) 09/21/2020 10/12/2020 influenza (HD-IIV) vaccine, age 65+ yr, high dose, PF (FLUZONE HIGH-DOSE) 02/27/2019 influenza (HD-IIV4) vaccine, age 65+ yr, high dose, quadrivalent, PF (FLUZONE HIGH-DOSE) 01/25/2020 Current Outpatient Medications Medication Sig Dispense Refill Etanercept (ENBREL SURECLICK) 50 mg/mL (1 mL) Inject 50mg (1 pen) subcutaneously one time a week. 4 mL 5 predniSONE (DELTASONE) 5 mg tablet 20 mg daily for 7 days, then 1 (more content not included)... [facility] 08-17-2022 Instructions Kellen Meredith MD - 08/17/2022 2:57 PM EDT In person follow up December 06 at 4.30 documented in this encounter [facility] 08-17-2022 History of Present illness Narrative MD Iam Arriaza August 17, 2022 Referring Provider: PCP: Darcie Zavala APRN.BASIN OPERATOR Chief Complaint: Patient presents with: Established Patient Background Rheumatologic History: About 2 years ago, he was tested positive for KAMLA. Per the patient, he did not have any symptoms at that point. It was done as a part of routine screening. He was told that he has lupus based on that positive KAMLA and has been on Plaquenil 200 mg twice daily since then. About 2 months ago, he started noticed pain in his hands bilaterally. The pain is located in his legs and small joints of the hands. It is associated with swelling. The pain is usually at the worst in the morning associated with at least an hour of morning stiffness. He tried nonsteroidal medication with no help. No pain in the other joints. No prior injury or infection. Review of system is positive for Raynaud's. No rash, inflammatory eye disease, inflammatory bowel disease, inflammatory back pain, oral ulcer, fever or any other connective tissue disease symptoms. He presented to emergency room about a week ago and is prescribed prednisone 50 mg. It helps with his pain at the margin. He has a history of cervical spondylosis and underwent cortisone injection for a few times. It helps with his neck pain for few months each time. He also has a history of ulnar nerve entrapment syndrome s/p surgery in 2007. Family history is positive for lupus in daughter. The patient denies family history of RA, , psoriasis, IBD, uveitis, other autoimmune diseases. Labs KAMLA 1:320 SSA + RF neg CCP neg ESR/CRP neg I think that seronegative rheumatoid arthritis is most likely explanation for his joint pain based on the pattern of his arthritis. I do note that he has a low positive KAMLA and SSA. However, he does not have any signs and symptoms of connective tissue disease. Since he is not doing well with hydroxychloroquine, I will stop it. I prescribe methotrexate instead (02/20/22). F/U 05/18/22 Methotrexate does not make a difference. The pain is as bad as it was. He felt better when he was on prednisone burst but the pain and swelling came back almost immediately upon completion. I stop methotrexate and escalated his treatment to Enbrel Interim History: Patient returns for follow up, last visit 05/18/2022. He has been on 3 doses of Enbrel so far. Enbrel has been helping with the swelling. However, pain is still pretty much the same. I also just gave him another course of steroid taper few weeks ago. Raynaud's phenomena continues to be problematic. PAST MEDICAL HISTORY Diagnosis Date Anemia 09/18/2015 Arthritis Chronic obstructive pulmonary disease (COPD) (HCC) Degenerative disc disease, cervical High blood pressure Mass on back 09/17/2015 Systemic lupus erythematosus (HCC) PAST SURGICAL HISTORY Procedure Laterality Date BACK SURGERY HX 11/14/2017 L4/5 laminectomy/decompression COLONOSCOPY 01/18/2014 internal hemorrhoids, rectal inflammation COLONOSCOPY 06/25/2020 int hemorrhoids, diverticulosis, unremarkable biopsies ESOPHAGOGASTRODUODENOSCOPY TRANSORAL DIAGNOSTIC 02/25/2021 gastritis, reflux esophagitis, unremarkable bxs F CAPSULE ENDOSCOPY 09/11/2021 KNEE SURGERY HX 1989 LEG SURGERY HX LIPOMA (LARGE) 09/26/2015 Excision Left Uppper Back Mass, NERVE SURGERY HX 2008 left arm candelario nerve rerouted Social History Tobacco Use Smoking status: Former Smokeless tobacco: Never Tobacco comments: quit cigs in 2019, currently smokes 2-3 cigars a week Vaping Use Vaping Use: Never used Substance Use Topics Alcohol use: Yes Comment: Social Drug use: No Comment: used marijuana as a teen Health Maintenance ABDOMINAL AORTIC ANEURYSM SCREENING Never done PNEUMOCOCCAL: 63+(1 - PCV) Never done SPIROMETRY Never done DTAP,TDAP,TD(1 - Tdap) Never done SHINGRIX VACCINE(1 of 2) Never done ALPHA-1 ANTITRYPSIN DEFICIENCY SCREENING Never done ANNUAL PCP TEAM CHRONIC DISEASE VISIT due on 08/18/2018 COVID-19 VACCINE(3 - Pfizer risk series) due on 11/09/2020 ADVANCE DIRECTIVE DISCUSSION Never done DEPRESSION ASSESSMENT Never done Immunization History Administered Date(s) Administered COVID-19 original vaccine, age 12+ yr, monovalent ([employer] - PURPLE TOP) 09/21/2020 10/12/2020 influenza (HD-IIV) vaccine, age 65+ yr, high dose, PF (FLUZONE HIGH-DOSE) 02/27/2019 influenza (HD-IIV4) vaccine, age 65+ yr, high dose, quadrivalent, PF (FLUZONE HIGH-DOSE) 01/25/2020 Current Outpatient Medications Medication Sig Dispense Refill Etanercept (ENBREL SURECLICK) 50 mg/mL (1 mL) Inject 50mg (1 pen) subcutaneously one time a week. 4 mL 5 predniSONE (DELTASONE) 5 mg tablet 20 mg daily for 7 days, then 15 mg daily for 7 days, then 10 mg daily for 7 days, then 5 mg daily for 7 days 70 tablet 0 tamsulosin (FLOMAX) 0.4 mg Take 0.4 mg by mouth once daily. cyclobenzaprine (FLEXERIL) 10 mg tablet Take by mouth three times daily. etodolac (LODINE) 400 mg tablet Take 400 mg by mouth twice daily. levothyroxine (SYNTHROID) 50 mcg tablet Take 1 tablet by mouth daily before breakfast. rOPINIRole (REQUIP) 0.5 mg tablet Take 0.5 mg by mouth twice daily. albuterol HFA (VENTOLIN HFA) 90 mcg/actuation inhaler Inhale 2 Puffs as instructed every 6 hours as needed. 1 Inhaler 1 mometasone (ELOCON) 0.1 % ointment Apply 1 application to affected area once daily. 1 Tube 1 No current facility-administered medications for this visit. ALLERGIES Allergen Reactions Keflex [Cephalexin] Hives Physical Exam: Wt 179 lb (81.2kg) General: Not pale, no jaundice, not in acute distress Head: Normocephalic, atraumatic Eyes: No redeye, no discharge ENT: No oral/nasal ulcer Neck: No lymphadenopathy Lungs: Normal breath sound, no adventitious sound Abdomen: Soft, not tender CV: Normal S1 S2, no murmur, no rub, pulse regular Skin: No rash, no malar rash, no telangiectasia, no pitting nail/onycholysis, no gross periungual telangiectasia Neuro: Grossly intact, motor power 5 all Joints LEFT Shoulder Full ROM, not tender Elbow Full ROM, not tender, not swollen Wrist Full ROM, mild tender, mild swollen 2nd MCP mild tender, mild swollen 3rd MCP mild tender, mild swollen 4th MCP mild tender, mild swollen 5th MCP mild tender, mild swollen 1st IP Not tender, not swollen 2nd PIP mild tender, mild swollen 3rd PIP mild tender, mild swollen 4th PIP mild tender, mild swollen 5th PIP mild tender, mild swollen 2nd DIP Not tender, not swollen 3rd DIP Not tender, not swollen 4th DIP Not tender, not swollen 5th DIP Not tender, not swollen Hip Full ROM Knee Full ROM, not tender, no effusion Ankle Not tender, not swollen Squeezing test Negative RIGHT Shoulder Full ROM, not tender Elbow Full ROM, not tender, not swollen Wrist Full ROM, mild tender, mild swollen 2nd MCP mild tender, mild swollen 3rd MCP mild tender, mild swollen 4th MCP mild tender, mild swollen 5th MCP mild tender, mild swollen 1st IP Not tender, not swollen 2nd PIP mild tender, mild swollen 3rd PIP mild tender, mild swollen 4th PIP mild tender, mild swollen 5th PIP mild tender, mild swollen 2nd DIP Not tender, not swollen 3rd DIP Not tender, not swollen 4th DIP Not tender, not swollen 5th DIP Not tender, not swollen Hip Full ROM Knee Full ROM, not tender, no effusion Ankle Not tender, not swollen Squeezing test Negative Impression: Seronegative rheumatoid arthritis High risk medication use Even though the patient continues to complain of severe pain, his examination today show less magnitude of swelling and tenderness in his hands. I think that Enbrel is working quite well and I will stick with it for now. He should complete steroid taper as prescribed by me. He can continue to use tramadol as needed to help with the pain. 3. Raynaud's phenomena It continues to be problematic despite conservative treatment and nitroglycerin cream. His local provider offers treatment with Botox. I think it is a reasonable option. I am okay with him doing Botox treatment. Recommendations/Plan Plan discussed with patient Return Visit: In person follow up December 06 at 4.30 I spent a total of 40 minutes on the date of the service which included preparing to see the patient, [id number] patient care, completing clinical documentation, obtaining and/or reviewing separately obtained history, performing a medically appropriate examination, counseling and educating the patient/family/caregiver, and ordering medications, tests, or procedures. Kellen Meredith MD Referring Provider: PCP: Darcie Zavala APRN.BASIN OPERATOR documented in this encounter [facility] 08-16-2022 Note HNO ID: [id number] Author: Carmen Jenny Service: ? Author Type: ? Type: Progress Notes Filed: 08/17/2022 2:24 PM Note Text: [facility] Specialty Refill Assessment Medication(s): Enbrel Patient's current medication list and adherence status to current therapy were reviewed by Specialty Pharmacy clinical pharmacist to identify any new drug interactions or non-compliance to therapy. Therapy continues to be appropriate for disease, patient response, and medical condition. Verification of therapeutic benefit and effectiveness with current therapy was completed. Adverse events, barriers in adherence, and side effects were assessed and addressed if applicable. Will proceed with refill with no changes in therapy - patient progressing towards achieving therapeutic goals based on medication-specific laboratory parameters, disease state markers and outcomes. 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 Patient confirmed: Yes Med/dose confirmed: Yes Supplies needed: No supplies needed Missed doses: No Estimated days supply on hand: 1 Next cycle/dose due: 08/17/22 Copay amount: 0 Payment confirmed: Yes Delivery method: FedEx Signature required: No Delivery address: [address] [facility] [address] Delivery date: 08/19/22 Questions or concerns for the pharmacist?: No [facility] Visit Assessment - Inflammatory Conditions: Assessment to use: Refill Treatment Plan Information: Treatment Plan Information: M13.80 - Seronegative arthritis Enbrel - Inject 50mg (1 syringe) subcutaneously one time a week. Estimated Treatment Duration: Until loss of efficacy and/or no longer tolerated. Refill Assessment: Concurrent med therapy and DMARD screening: Yes Assessment of injection issues: Yes Screening for infection: Yes Adverse reactions and mitigation: Yes COPD monitoring ([place]): N/A Assessment of efficacy: Yes Carmen Alvarado CPhT, Inflammatory/Allergy [facility] [phone] CBC with differential (baseline); complete metabolic panel (baseline); tuberculosis (TB) screening prior to initiating and during therapy (chest X-ray if TB positive); hepatitis B virus (HBV)/hepatitis C virus screening prior to initiating (all patients), HBV carriers (during and for several months following therapy); HIV screening (baseline) (AAD-NPF [Menter 2019]); signs/symptoms of infection, heart failure, hypersensitivity reaction, lupus-like syndrome, or malignancy (eg, splenomegaly, hepatomegaly, abdominal pain, persistent fever, night sweats, weight loss). Monitor improvement of symptoms and physical function assessments. CBC with diff: WBC Date Value Ref Range Status 05/18/2022 5.74 3.70 - 11.00 k/uL Final RBC Date Value Ref Range Status 05/18/2022 4.08 (L) 4.20 - 6.00 m/uL Final Hemoglobin Date Value Ref Range Status 05/18/2022 11.6 (L) 13.0 - 17.0 g/dL Final Hematocrit Date Value Ref Range Status 05/18/2022 34.4 (L) 39.0 - 51.0 % Final MCV Date Value Ref Range Status 05/18/2022 84.3 80.0 - 100.0 fL Final MCH Date Value Ref Range Status 05/18/2022 28.4 26.0 - 34.0 pg Final MCHC Date Value Ref Range Status 05/18/2022 33.7 30.5 - 36.0 g/dL Final RDW-CV Date Value Ref Range Status 05/18/2022 15.4 (H) 11.5 - 15.0 % Final Platelet Count Date Value Ref Range Status 05/18/2022 307 150 - 400 k/uL Final MPV Date Value Ref Range Status 05/18/2022 9.2 9.0 - 12.7 fL Final Neutrophils % Date Value Ref Range Status 05/18/2022 72.2 % Final Lymphocytes % Date Value Ref Range Status 05/18/2022 14.6 % Final Monocytes % Date Value Ref Range Status 05/18/2022 10.1 % Final Eosin% Date Value Ref Range Status 10/10/2007 1 0 - 4 % Final Basophils % Date Value Ref Range Status 05/18/2022 0.3 % Final Abs Neut Date Value Ref Range Status 05/18/2022 4.14 1.45 - 7.50 k/uL Final Abs Lym Date Value Ref Range Status 10/10/2007 1.8 1.0 - 4.0 k/uL Final Abs [place] Date Value Ref Range Status 05/18/2022 0.58 <0.87 k/uL Final Abs Eosin Date Value Ref Range Status 05/18/2022 0.12 <0.46 k/uL Final Abs Baso Date Value Ref Range Status 05/18/2022 <0.03 <0.11 k/uL Final TB: TB Result Date Value Ref Range Status 05/18/2022 Negative Final HBV: Hepatitis B Core Ab, Total Date Value Ref Range Status 02/22/2022 Positive (A) Negative Final Comment: The result suggests either current or past infection with Hepatitis B virus. Non-specific reactivity may at times be seen with this test due to some underlying phenomena. Please correlate with HBsAg result and medical history. HCV: Hep C Antibody IA Date Value Ref Range Status 02/22/2022 Positive (A) Negative Final Comment: Confirmation with Hepatitis C RNA has been ordered and charged. HCV Quant RNA by PCR Date Value Ref Range Status 02/22/2022 HCV RNA not detected by PCR. HCV RNA not detected by PCR. Final HIV: No results found for: (more content not included)... [facility] 07-27-2022 Miscellaneous Notes Just started Enbrel last month Patient requests auto injector rather than syringes please Requested Prescriptions Pending Prescriptions Disp Refills Etanercept (ENBREL SURECLICK) 50 mg/mL (1 mL) 4 mL 5 Sig: Inject 1 mL subcutaneously one time a week. Thanks ALLERGIES Allergen Reactions Keflex [Cephalexin] Hives Crystal Nolen [facility] Clinical Pharmacist, Hepatology & HCV [facility] P: ; F: Pool: P CC SPEC GROUP 3 documented in this encounter [facility] 07-21-2022 Note HNO ID: [id number] Author: Carmen Alvarado Service: ? Author Type: ? Type: Progress Notes Filed: 07/21/2022 1:33 PM Note Text: [facility] received prescription(s) for Enbrel from Dr. Meredith's office. Benefits investigation was conducted, indicating that a prior authorization is required. PA was initiated and pending review. Plan Name: [employer] Medicare Plan Agent/Maya: [id number] Phone/Fax: - / - Case: [id number] Timeline: Standard Carmen Alvarado CPhT, Inflammatory/Allergy [facility] [phone] [facility] 07-21-2022 Note HNO ID: [id number] Author: Maciel Torrez RPh Service: ? Author Type: Pharmacist Type: Progress Notes Filed: 07/23/2022 3:26 PM Note Text: [facility] received prescription(s) for enbrel from Dr. Meredith's office. Benefits investigation was conducted, indicating that a prior authorization is required. PA was approved with details listed below: Plan Name: [employer] medicare Plan Agent/Maya: CMM Phone/Fax: - / - PA reference number: [id number] Approval Dates: 07/21/22-01/21/23 Pt's copay is $0. Shipment has been arranged, and pt will receive medication(s) on 07/27/22. Pt has been instructed to follow-up with clinic to confirm start date. A full drug interaction report was conducted, and No significant drug interactions found.. I reviewed with Iam Timmons appropriate dose and dosing frequency, administration directions (Inject 50mg (1 syringe) subcutaneously one time a week.), potential side effects, ability to self-administer and proper storage and handling requirements. S/he expressed understanding of the information we provided today, and received our contact information for the pharmacy if s/he had any other questions. PAST MEDICAL HISTORY Diagnosis Date Anemia 09/18/2015 Arthritis Chronic obstructive pulmonary disease (COPD) (HCC) Degenerative disc disease, cervical High blood pressure Mass on back 09/17/2015 Systemic lupus erythematosus (HCC) Problem List as of 07/21/2022 Reviewed: 05/16/2022 5:45 PM by Jose Luis Hart MD Cardiovascular High blood pressure Last Assessment AND Plan 09/23/2020 PAT Written 09/23/2020 9:56 AM by Alma Rosa Tay APRN.BASIN OPERATOR Assessment: Compliant with Rx. Last 3 Encounter BP Readings: Date: BP: 09/23/2020 110/76 08/12/2020 117/76 07/15/2020 124/79 Pulmonary Chronic obstructive pulmonary disease (COPD) (HCC) Last Assessment AND Plan 09/23/2020 PAT Written 09/23/2020 9:56 AM by Alma Rosa Tay APRN.BASIN OPERATOR Assessment: Stable per patient, uses PRN Albuterol inhaler about once monthly. Still smoking. Current smoker Last Assessment AND Plan 09/23/2020 PAT Edited 09/23/2020 9:57 AM by Alma Rosa Tay APRN.BASIN OPERATOR Assessment: Former cigarette smoker, now smokes cigars - 2-3 x week. Gastrointestinal Diverticulitis Last Assessment AND Plan 09/23/2020 PAT Written 09/23/2020 9:56 AM by Alma Rosa Tay APRN.BASIN OPERATOR Assessment: Flare requiring admission along with GI bleed 04/2020. No current issues per patient. Last colonoscopy 06/2020; showed diverticulosis and mucosal inflammation. Hematology Anemia Last Assessment AND Plan 09/23/2020 PAT Written 09/23/2020 9:55 AM by Alma Rosa Tay APRN.BASIN OPERATOR Assessment: Last HANDH - 11.3 AND 33.5 (07/2020). GI bleed 04/2020 but anemia is chronic per patient. Scheduled for EGD for further workup. Rheumatology Degenerative disc disease, cervical Last Assessment AND Plan 09/23/2020 PAT Written 09/23/2020 9:58 AM by Alma Rosa Tay APRN.BASIN OPERATOR Assessment: Chronic neck pain, recently started Etodolac per PCP. ROM WNL at today's exam. Musculoskeletal Chronic back pain Last Assessment AND Plan 09/23/2020 PAT Written 09/23/2020 9:58 AM by Alma Rosa Tay APRN.BASIN OPERATOR Assessment: Back pain present for several years due to past injury. Flexeril PRN, Ropinirole and Etodolac. 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 Patient confirmed: Yes Med/dose confirmed: Yes Supplies needed: Welcome packet, Sharps container, Alcohol swabs (bandages) Missed doses: No Next cycle/dose due: 07/27/22 Copay amount: 0 Payment confirmed: Yes Delivery method: FedEx Signature required: No Delivery address: [facility] [address], [place], [place], [address] Delivery date: 07/27/22 Questions or concerns for the pharmacist?: No [facility] CLINICAL ASSESSMENT - Inflammatory Conditions CBC with differential (baseline); complete metabolic panel (baseline); tuberculosis (TB) screening prior to initiating and during therapy (chest X-ray if TB positive); hepatitis B virus (HBV)/hepatitis C virus screening prior to initiating (all patients), HBV carriers (during and for several months following therapy); HIV screening (baseline) (AAD-NPF [Menter 2019]); signs/symptoms of infection, heart failure, hypersensitivity reaction, lupus-like syndrome, or malignancy (eg, splenomegaly, hepatomegaly, abdominal pain, persistent fever, night sweats, weight loss). Monitor improvement of symptoms and physical function assessments. CBC with diff: WBC Date Value Ref Range Status 05/18/2022 5.74 3.70 - 11.00 k/uL Final RBC Date Value Ref Range Status 05/18/2022 4.08 (L) 4.20 - 6.00 m/uL Final Hemoglobin Date Value Ref Range Status 05/18/2022 11.6 (L) 13.0 - 17.0 g/dL Final Hematocrit Date Value Ref Range Status 05/18/2022 34.4 (L) 39.0 - 51.0 % Final MCV Date Value Ref Range Status 05/18/2022 84.3 80.0 - 100.0 fL Final MCH Date Value Ref Range Status 05/18/2022 28.4 26.0 - 34.0 pg Final MCHC Date Va (more content not included)... [facility] 07-21-2022 Note HNO ID: [id number] Author: Carmen Alvarado Service: ? Author Type: ? Type: Progress Notes Filed: 07/21/2022 9:48 AM Note Text: [facility] received prescription(s) for Enbrel from Dr. Meredith's office. Benefits investigation was conducted, indicating that a prior authorization is required by patient's insurance plan with [facility] [employer]. Encounter will be updated once prior authorization has been submitted by [facility]. Carmen Alvarado CPhT, Inflammatory/Allergy [facility] [phone] [facility] 07-21-2022 Note HNO ID: [id number] Author: Carmen Alvarado Service: ? Author Type: ? Type: Progress Notes Filed: 07/21/2022 2:55 PM Note Text: [facility] received prescription(s) for Enbrel from Dr. Meredith's office. Benefits investigation was conducted, indicating that a prior authorization is required. PA was approved with details listed below. Plan Name: [facility] medicare Plan Agent/Maya: CMM Phone/Fax: - / - PA reference number: [id number] Approval Dates: 07/21/22-01/21/23 Prescriptions will now be processed through [facility] for determination of next steps. Carmen Alvarado CPhT, Inflammatory/Allergy [facility] [phone] [facility] 07-21-2022 History of Present illness Narrative [facility] received prescription(s) for Enbrel from Dr. Meredith's office. Benefits investigation was conducted, indicating that a prior authorization is required by patient's insurance plan with [facility] [employer]. Encounter will be updated once prior authorization has been submitted by [facility]. Carmen Alvarado CPhT, Inflammatory/Allergy [facility] [phone] [facility] received prescription(s) for Enbrel from Dr. Meredith's office. Benefits investigation was conducted, indicating that a prior authorization is required. PA was initiated and pending review. Plan Name: [facility] Medicare Plan Agent/Maya: [id number] Phone/Fax: - / - Case: [id number] Timeline: Standard Carmen Alvarado CPhT, Inflammatory/Allergy [facility] [phone] documented in this encounter [facility] 07-21-2022 Miscellaneous Notes Left voicemail for patient and sent a message on [employer]. Sorry. The prescription for Enbrel was inadvertently sent to wrong pharmacy. I just fixed it now. I will also give him another steroid burst to help with the ongoing pain/inflammation. Dr. Meredith, Please see message from patient below. Please send Enbrel to [facility] for Prior Auth: Requested Prescriptions Pending Prescriptions Disp Refills Etanercept (ENBREL) 50 mg/mL (1 mL) injection 4 mL 2 Sig: Inject 1 mL subcutaneously one time a week. entire contents of 1 syringe (50mg/1mL). Please review and advise. Bhavani Lang RN Patient called, very upset. Patient stated he has started seeing Dr Meredith in February, and states he has done nothing for him since he has started seeing him. Patient states he can't sleep at night due to being in so much pain, and none of the medications that he has been prescribed by Dr Meredith has worked, not the steroids or anything. Patient is wanting to know when he can get Enbrel, to start that because Dr Meredith had said we needed to wait 3 months for insurance approval for the Enbrel, and patient has been waiting for a phone call regarding that. He states his PCP is doing a lot more for him, than Rheumatology, and he is at his wits end due to him being in so much pain 24 hours a day, 7 days a week. Patient stated last night his fingers cracked open last night, and was bleeding, states he has sores on 3 of his fingers, and is sore/swollen. Patient states he doesn't want to waste anymore time, and wants to know if this doctor can help him because he doesn't want to keep wasting time if he isn't. Please advise patient. documented in this encounter [facility] 07-19-2022 Miscellaneous Notes Most recent Rheumatology visit: 05/18/2022 (with Kellen Meredith) Recent Office Visits - This Specialty 05/18/2022 Seronegative inflammatory arthritis Rheumatology Kellen Meredith MD 03/02/2022 Seronegative inflammatory arthritis Rheumatology Kellen Meredith MD 02/22/2022 Inflammatory arthritis Rheumatology Kellen Meredith MD Upcoming Rheumatology Appointments - Next 365 Days Visit Type Date Time Department [facility] 08/17/2022 2:30 PM [facility] CBC: CBC Latest Ref Rng & Units 03/23/2022 05/18/2022 WBC 3.70 - 11.00 k/uL 4.35 5.74 HGB 13 - 16.5 g/dL - - HEMOGLOBIN 13.0 - 17.0 g/dL 12.7(L) 11.6(L) HEMATOCRIT 39.0 - 51.0 % 38.0(L) 34.4(L) PLATELETS 150 - 400 k/uL 257 307 ABS NEUT (ANC) 1.45 - 7.50 k/uL 3.20 4.14 NEUTROPHILS ABSOLUTE 2.0 - 7.7 k/uL - - LYMPHOCYTES, ABSOLUTE 0.83 - 4.51 - - ABS LYM 1.0 - 4.0 k/uL - - ABS LYMPH 1.00 - 4.00 k/uL 0.60(L) 0.84(L) Vitamin D: None on file in the last 6 months LFT: None on file in the last 6 months Creatinine: Creatinine Latest Ref Rng & Units 03/23/2022 05/18/2022 CREAT 0.73 - 1.22 mg/dL 0.85 0.92 ESR/CRP: ESR, WSR Latest Ref Rng & Units 03/23/2022 05/18/2022 WSR 0 - 15 mm/hr 22(H) 16(H) CRP Latest Ref Rng & Units 03/23/2022 05/18/2022 CRP <0.9 mg/dL 0.6 0.4 Uric Acid: None on file in the last 6 months Open Standing (Multiple Instance) Lab Orders None Open Future (Single Instance) Lab Orders None documented in this encounter [facility] 05-18-2022 Note HNO ID: [id number] Author: Kellen Meredith MD Service: ? Author Type: Physician Type: Progress Notes Filed: 05/18/2022 2:52 PM Note Text: MD Iam Arriaza May 18, 2022 Referring Provider:Kellen Meredith PCP: Darcie Zavala APRN.BASIN OPERATOR Chief Complaint: Patient presents with: Established Patient Background Rheumatologic History: About 2 years ago, he was tested positive for KAMLA. Per the patient, he did not have any symptoms at that point. It was done as a part of routine screening. He was told that he has lupus based on that positive KAMLA and has been on Plaquenil 200 mg twice daily since then. About 2 months ago, he started noticed pain in his hands bilaterally. The pain is located in his legs and small joints of the hands. It is associated with swelling. The pain is usually at the worst in the morning associated with at least an hour of morning stiffness. He tried nonsteroidal medication with no help. No pain in the other joints. No prior injury or infection. No rash, inflammatory eye disease, inflammatory bowel disease, inflammatory back pain, oral ulcer, fever or any other connective tissue disease symptoms. He presented to emergency room about a week ago and is prescribed prednisone 50 mg. It helps with his pain at the margin. He has a history of cervical spondylosis and underwent cortisone injection for a few times. It helps with his neck pain for few months each time. He also has a history of ulnar nerve entrapment syndrome s/p surgery in 2007. Family history is positive for lupus in daughter. The patient denies family history of RA, , psoriasis, IBD, uveitis, other autoimmune diseases. Labs KAMLA 1:320 SSA + RF neg CCP neg ESR/CRP neg I think that seronegative rheumatoid arthritis is most likely explanation for his joint pain based on the pattern of his arthritis. I do note that he has a low positive KAMLA and SSA. However, he does not have any signs and symptoms of connective tissue disease. Since he is not doing well with hydroxychloroquine, I will stop it. I prescribe methotrexate instead (02/20/22). Interim History: Patient returns for follow up, last visit 02/22/2022. Methotrexate does not make a difference. The pain is as bad as it was. He felt better when he was on prednisone burst but the pain and swelling came back almost immediately upon completion. Labs ok PAST MEDICAL HISTORY Diagnosis Date Anemia 09/18/2015 Arthritis Chronic obstructive pulmonary disease (COPD) (HCC) Degenerative disc disease, cervical High blood pressure Mass on back 09/17/2015 Systemic lupus erythematosus (HCC) PAST SURGICAL HISTORY Procedure Laterality Date BACK SURGERY HX 11/14/2017 L4/5 laminectomy/decompression COLONOSCOPY 01/18/2014 internal hemorrhoids, rectal inflammation COLONOSCOPY 06/25/2020 int hemorrhoids, diverticulosis, unremarkable biopsies ESOPHAGOGASTRODUODENOSCOPY TRANSORAL DIAGNOSTIC 02/25/2021 gastritis, reflux esophagitis, unremarkable bxs F CAPSULE ENDOSCOPY 09/11/2021 KNEE SURGERY HX 1989 LEG SURGERY HX LIPOMA (LARGE) 09/26/2015 Excision Left Uppper Back Mass, NERVE SURGERY HX 2008 left arm candelario nerve rerouted Social History Tobacco Use Smoking status: Former Smokeless tobacco: Never Tobacco comments: quit cigs in 2019, currently smokes 2-3 cigars a week Vaping Use Vaping Use: Never used Substance Use Topics Alcohol use: Yes Comment: Social Drug use: No Comment: used marijuana as a teen Health Maintenance ABDOMINAL AORTIC ANEURYSM SCREENING Never done PNEUMOCOCCAL: 63+(1 - PCV) Never done SPIROMETRY Never done BP CONTROLLED (<130/80) Never done DTAP,TDAP,TD(1 - Tdap) Never done SHINGRIX VACCINE(1 of 2) Never done ALPHA-1 ANTITRYPSIN DEFICIENCY SCREENING Never done ANNUAL PCP TEAM CHRONIC DISEASE VISIT due on 08/18/2018 COVID-19 VACCINE(3 - Pfizer risk series) due on 11/09/2020 INFLUENZA(1) due on 01/07/2022 ADVANCE DIRECTIVE DISCUSSION Never done DEPRESSION ASSESSMENT Never done Immunization History Administered Date(s) Administered COVID-19 original vaccine, age 12+ yr, monovalent ([employer] - PURPLE TOP) 09/21/2020 10/12/2020 Influenza Seasonal - High Dose - Age 65+ 02/27/2019 influenza, high-dose, quadrivalent vaccine (FLUZONE HIGH DOSE QUADRIVALENT) 01/25/2020 Current Outpatient Medications Medication Sig Dispense Refill predniSONE (DELTASONE) 5 mg tablet Take 1 tablet by mouth once daily. 60 tablet 0 Etanercept (ENBREL) 50 mg/mL (1 mL) injection Inject 1 mL subcutaneously one time a week. entire contents of 1 syringe (50mg/1mL). 4 mL 11 loratadine (CLARITIN) 10 mg tablet Take 1 tablet by mouth once daily for 10 days. 10 tablet 0 famotidine (PEPCID) 20 mg tablet Take 1 tablet by mouth twice daily for 10 days. 20 tablet 0 clindamycin (CLEOCIN) 300 mg capsule Take 1 capsule by mouth four times (more content not included)... [facility] 03-24-2022 Miscellaneous Notes Most recent Rheumatology visit: 03/02/2022 (with Kellen Meredith) Recent Office Visits - This Specialty 03/02/2022 Seronegative inflammatory arthritis Rheumatology Kellen Meredith MD 02/22/2022 Inflammatory arthritis Rheumatology Kellen Meredith MD Upcoming Rheumatology Appointments - Next 365 Days Visit Type Date Time Department [facility] MEDICAL EXT 05/18/2022 2:00 PM [facility] CBC: CBC Latest Ref Rng & Units 02/22/2022 03/23/2022 WBC 3.70 - 11.00 k/uL 7.17 4.35 HGB 13 - 16.5 g/dL - - HEMOGLOBIN 13.0 - 17.0 g/dL 12.3(L) 12.7(L) HEMATOCRIT 39.0 - 51.0 % 37.5(L) 38.0(L) PLATELETS 150 - 400 k/uL 284 257 ABS NEUT (ANC) 1.45 - 7.50 k/uL 4.90 3.20 NEUTROPHILS ABSOLUTE 2.0 - 7.7 k/uL - - LYMPHOCYTES, ABSOLUTE 0.83 - 4.51 - - ABS LYM 1.0 - 4.0 k/uL - - ABS LYMPH 1.00 - 4.00 k/uL 1.39 0.60(L) Vitamin D: None on file in the last 6 months LFT: None on file in the last 6 months Creatinine: Creatinine Latest Ref Rng & Units 02/22/2022 03/23/2022 CREAT 0.73 - 1.22 mg/dL 0.87 0.85 ESR/CRP: ESR, WSR Latest Ref Rng & Units 02/22/2022 03/23/2022 WSR 0 - 15 mm/hr 8 22(H) CRP Latest Ref Rng & Units 02/22/2022 03/23/2022 CRP <0.9 mg/dL <0.3 0.6 Uric Acid: None on file in the last 6 months Open Standing (Multiple Instance) Lab Orders None Open Future (Single Instance) Lab Orders None documented in this encounter [facility] 03-08-2022 Miscellaneous Notes I tried to call him back and left a VM. Pt calling to speak with the nurse about inflammatory medications he's taking documented in this encounter [facility] 03-02-2022 History of Present illness Narrative AMBULATORY TELEPHONE VISIT Iam Timmons has consented to this telephone encounter. Persons Present: patient and patient's spouse/significant other Chief Complaint/Reason: Joint pain HPI: About 2 years ago, he was tested positive for KAMLA. Per the patient, he did not have any symptoms at that point. It was done as a part of routine screening. He was told that he has lupus based on that positive KAMLA and has been on Plaquenil 200 mg twice daily since then. About 2 months ago, he started noticed pain in his hands bilaterally. The pain is located in his legs and small joints of the hands. It is associated with swelling. The pain is usually at the worst in the morning associated with at least an hour of morning stiffness. He tried nonsteroidal medication with no help. No pain in the other joints. No prior injury or infection. No rash, inflammatory eye disease, inflammatory bowel disease, inflammatory back pain, oral ulcer, fever or any other connective tissue disease symptoms. He presented to emergency room about a week ago and is prescribed prednisone 50 mg. It helps with his pain at the margin. He has a history of cervical spondylosis and underwent cortisone injection for a few times. It helps with his neck pain for few months each time. He also has a history of ulnar nerve entrapment syndrome s/p surgery in 2007. Family history is positive for lupus in daughter. The patient denies family history of RA, , psoriasis, IBD, uveitis, other autoimmune diseases. Data Reviewed: Most recent labs and imaging results. Labs KAMLA 1:320 SSA + RF neg CCP neg ESR/CRP neg Assessment: (M13.80) Seronegative inflammatory arthritis (primary encounter diagnosis) (Z79.899) High risk medication use I think that seronegative rheumatoid arthritis is most likely explanation for his joint pain based on the pattern of his arthritis. I do note that he has a low positive KAMLA and SSA. However, he does not have any signs and symptoms of connective tissue disease. Plan: Since he is not doing well with hydroxychloroquine, I will stop it. I will prescribe methotrexate instead. The following side effects of MTX were discussed with the patient - Increased risk of infection - Stomach upset - Fatigue - Pneumonitis - Oral ulcers - Hepatitis - Low blood count - Hair loss - Teratogenicity I informed the patient that serious side effects (serious infection, pneumonitis, severe hepatitis, very low blood count) occur very infrequently and I believe that its potential benefit outweigh the risk. The patient understand the risk and is willing to take MTX. He will do surveillance blood work in 1 month. I plan to see him again in 2 months. The patient is advised to call my office to set up the appointment. Total Time Spent: 30 minutes Kellen Meredith MD documented in this encounter [facility] 12-09-2021 History of Present illness Narrative Images from the original note were not included. CHIEF COMPLAINT: Patient presents with: Bacterial overgrowth: Capsule 09/11/21 EGD 02/25/21 Labs in [facility] This consult was requested by Asia Staley MD for an opinion regarding SIBO. My final recommendations will be communicated to the requesting health care provider by way of the shared medical record for internal providers or letter via the [employer] for external providers. HPI: Iam iTmmons is a 66 year old male who presents for Bacterial overgrowth (Capsule 09/11/21 EGD 02/25/21 Labs in [facility]). Patient tells me that he started having symptoms around June of 2020. EGD/colonoscopy were unremarkable. Got COVID which worsened GI symptoms. Was having a lot of constipation and dry stools. [place] very dehydrated. Has been doing olive oil daily which seems to help. Bowels seems to be more regular. Notes urgency with stools throughout the day. Does admit to some incomplete bowel movements. Having mild lower abdominal pain. No bloating. No bloody or black stools. Drinks socially. Quit smoking about 3 years ago. Capsule 11/04/2021: EGD 02/25/2021: Impression: - Normal examined jejunum. - Normal examined duodenum. - Gastritis. - Non-severe reflux esophagitis. Biopsied. Recommendation: - Discharge patient to home. - Resume previous diet. - Continue present medications. - Continue present medications. - Return to physician assistant buyer at appointment to be scheduled. Colonoscopy 06/25/2020: Impression: - Preparation of the colon was fair. - One 3 mm polyp at the hepatic flexure, removed with a cold biopsy forceps. Resected and retrieved. - Diverticulosis in the sigmoid colon. - Inflamed mucosa in the sigmoid colon. Biopsied. - Internal hemorrhoids. - The examination was otherwise normal on direct and retroflexion views. Recommendation: - Patient has a contact number available for emergencies. The signs and symptoms of potential delayed complications were discussed with the patient. Return to normal activities tomorrow. Written discharge instructions were provided to the patient. - High fiber diet indefinitely. - Continue present medications. - Await pathology results. - Repeat colonoscopy date to be determined after pending pathology results are reviewed for surveillance based on pathology results. - Return to my office in 2 weeks. - Recommend an oral antibiotic for 7 days. CONVERTED FINAL DIAGNOSIS 1. Antral, biopsy (A) - Duodenal mucosa with no pathologic diagnostic abnormality; negative for Celiac disease, granulomas and dysplasia; see comment. 2. Esophagogastric junction, biopsy (B) - Squamous mucosa and small fragment of gastric mucosa with no pathologic diagnostic abnormality; negative for intestinal metaplasia and dysplasia. Record Review: [facility] / Outside records reviewed. PAST MEDICAL HISTORY Diagnosis Date Anemia 09/18/2015 Arthritis Chronic obstructive pulmonary disease (COPD) (HCC) Degenerative disc disease, cervical High blood pressure Mass on back 09/17/2015 PAST SURGICAL HISTORY Procedure Laterality Date BACK SURGERY HX 11/14/2017 L4/5 laminectomy/decompression COLONOSCOPY 01/18/2014 internal hemorrhoids, rectal inflammation COLONOSCOPY 06/25/2020 int hemorrhoids, diverticulosis, unremarkable biopsies ESOPHAGOGASTRODUODENOSCOPY TRANSORAL DIAGNOSTIC 02/25/2021 gastritis, reflux esophagitis, unremarkable bxs F CAPSULE ENDOSCOPY 09/11/2021 KNEE SURGERY HX 1989 LEG SURGERY HX LIPOMA (LARGE) 09/26/2015 Excision Left Uppper Back Mass, NERVE SURGERY HX 2008 left arm candelario nerve rerouted Allergies: ALLERGIES No Known Allergies Medications: levothyroxine (SYNTHROID) 50 mcg tablet Take 1 tablet by mouth daily before breakfast. rOPINIRole (REQUIP) 0.5 mg tablet Take 0.5 mg by mouth twice daily. albuterol HFA (VENTOLIN HFA) 90 mcg/actuation inhaler Inhale 2 Puffs as instructed every 6 hours as needed. mometasone (ELOCON) 0.1 % ointment Apply 1 application to affected area once daily. FAMILY HISTORY Problem Relation Age of Onset Hypertension Mother Diabetes Mother Stroke Mother Cancer Mother lymphoma Cancer Father mesothelioma Colon Cancer Maternal Grandmother Arthritis Other other (Myocardial infarction) Other Employer And Job Title: None on file Years Of Education Completed: Not specified Marital Status: Social History Tobacco Use Smoking status: Former Smoker Packs/day: 1.50 Years: 50.00 Pack years: 75.00 Types: Cigarettes, Cigars Start date: [birth year]/17/1968 Smokeless tobacco: Never Used Tobacco comment: quit cigs in 2019, currently smokes 2-3 cigars a week Vaping Use Vaping Use: Never used Substance Use Topics Alcohol use: Yes Comment: Social Drug use: No Comment: used marijuana as a teen Review of Systems: Review of Systems Constitutional: Positive for activity change, appetite change and unexpected weight change. HENT: Positive for hearing loss. Respiratory: Positive for shortness of breath. Gastrointestinal: Positive for abdominal pain. Change in bowel habits All other systems reviewed and are negative. Are you taking any blood thinners? No Physical Examination: BP 142/70 Pulse 100 Ht 6' 0 (1.83m) Wt 179 lb (81.2kg) BMI 24.27 kg/(m^2). Physical Exam Constitutional: Appearance: Normal appearance. He is normal weight. HENT: Head: Normocephalic and atraumatic. Nose: Nose normal. Eyes: General: No scleral icterus. Extraocular Movements: Extraocular movements intact. Conjunctiva/sclera: Conjunctivae normal. Pupils: Pupils are equal, round, and reactive to light. Cardiovascular: Rate and Rhythm: Normal rate and regular rhythm. Pulses: Normal pulses. Heart sounds: Normal heart sounds. Pulmonary: Effort: Pulmonary effort is normal. Breath sounds: Normal breath sounds. Abdominal: General: Abdomen is flat. Bowel sounds are normal. Palpations: Abdomen is soft. Tenderness: There is no abdominal tenderness. Musculoskeletal: General: Normal range of motion. Cervical back: Normal range of motion and neck supple. Skin: General: Skin is warm and dry. Coloration: Skin is not jaundiced. Neurological: General: No focal deficit present. Mental Status: He is alert and oriented to person, place, and time. Psychiatric: Mood and Affect: Mood normal. Behavior: Behavior normal. Thought Content: Thought content normal. Judgment: Judgment normal. Assessment/Plan (R19.4) Change in bowel habits (primary encounter diagnosis) (K63.89) Small intestinal bacterial overgrowth (SIBO) 1. Change in bowel habits -- Notes new constipations since having diverticulitis and COVID about 1.5 years ago. Was doing Mag citrate about two times a month to clean him out. -- Capsule is showing slow transit through the small bowel. ?SIBO. -- Will order an abdominal x-ray r/o stool burden. - XR ABDOMEN 2V ROUTINE SUPINE W UPRIGHT/DECUB/CTL; Future 2. Small intestinal bacterial overgrowth (SIBO) -- Capsule is showing slow transit through the small bowel. ?SIBO. Discussed potential breath test for further evaluation however does not have typical SIBO symptoms. He would like to hold off for now. Follow up in office PRN. Recommended to please call office/go to ER if fever, chills, chest pain, SOB, diarrhea, nausea, emesis, worsening abdominal pain, dehydration occurs I spent 25 minutes in the visit, with more than 50% of the total [id number] time of the visit in counseling / coordination of care. I have confirmed and edited as necessary, the PFSH and ROS obtained by others. María Elena oWo PA-C December 09, 2021 11:26 AM documented in this encounter [facility] 10-15-2021 History of Present illness Narrative PROGRESS NOTES PATIENT NAME: Iam Timmons Assessment ASSESSMENT/PLAN: (K63.89) Small intestinal bacterial overgrowth (SIBO) (primary encounter diagnosis) Silvestre presents with complaints of small stools. He has had an extensive work-up with a coke oven mason in [place]. He is not interested in returning to see them. His recent capsule endoscopy showed findings concerning for small intestine bacterial overgrowth. I would like to refer him to another coke oven mason to further discuss this. With regard to his GI complaints, I have encouraged him to eat a high-fiber diet and add a fiber supplement again. Hopefully this can improve his bowel habits. He is comfortable with this plan. He is scheduled to see gastroenterology in December. Office Visit on 10/15/21 CONSULT TO GASTROENTEROLOGY SUBJECTIVE CHIEF COMPLAINT: Patient presents with: Established Patient: Bowel Issues Feels like he has a Blockage INTERVAL HISTORY OF PRESENT ILLNESS: Silvestre is a 66-year-old gentleman who presents with vague abdominal complaints. Last fall he was complaining of weight loss and changes in bowel habits after having COVID. These lasted for 6 weeks. Since then he has been seeing gastroenterology. His main complaint is small stools that are difficult to evacuate. He did try Metamucil in the past with no improvement. He reports some seepage at times but denies pain. He denies straining with bowel movements. He denies blood in the stool. His weight has started to improve. He has a history of a right perineal abscess when he was in high school. This has completely resolved. His last colonoscopy was performed by myself in June 2020. He did have internal hemorrhoids at that time. He also recently had a capsule endoscopy. This showed mild duodenitis as well as a long transit time in the small bowel that could indicate small bacteria overgrowth. The patient is no longer taking his PPI. HISTORIES: PAST MEDICAL HISTORY Diagnosis Date Anemia 09/18/2015 Arthritis Chronic obstructive pulmonary disease (COPD) (HCC) Degenerative disc disease, cervical High blood pressure Mass on back 09/17/2015 PAST SURGICAL HISTORY Procedure Laterality Date BACK SURGERY HX 11/14/2017 L4/5 laminectomy/decompression COLONOSCOPY 01/18/2014 COLONOSCOPY 06/2020 ESOPHAGOGASTRODUODENOSCOPY TRANSORAL DIAGNOSTIC 02/25/2021 KNEE SURGERY HX 1989 LEG SURGERY HX LIPOMA (LARGE) 09/26/2015 Excision Left Uppper Back Mass, NERVE SURGERY HX 2008 left arm candelario nerve rerouted ALLERGIES: Patient has no known allergies. MEDICATIONS: Current Outpatient Medications Medication Sig levothyroxine (SYNTHROID) 50 mcg tablet Take 1 tablet by mouth daily before breakfast. rOPINIRole (REQUIP) 0.5 mg tablet Take 0.5 mg by mouth twice daily. albuterol HFA (VENTOLIN HFA) 90 mcg/actuation inhaler Inhale 2 Puffs as instructed every 6 hours as needed. mometasone (ELOCON) 0.1 % ointment Apply 1 application to affected area once daily. sucralfate (CARAFATE) 1 gram tablet Take 1 tablet by mouth four times daily. (Patient not taking: Reported on 10/15/2021 ) etodolac (LODINE) 400 mg tablet Take 400 mg by mouth twice daily. (Patient not taking: Reported on 10/15/2021 ) No current facility-administered medications for this visit. FAMILY HISTORY Problem Relation Age of Onset Hypertension Mother Diabetes Mother Stroke Mother Cancer Mother lymphoma Cancer Father mesothelioma Colon Cancer Maternal Grandmother Arthritis Other other (Myocardial infarction) Other Social History Tobacco Use Smoking status: Former Smoker Packs/day: 1.50 Years: 50.00 Pack years: 75.00 Types: Cigarettes, Cigars Start date: [birth year]/17/1968 Smokeless tobacco: Never Used Tobacco comment: quit cigs in 2019, currently smokes 2-3 cigars a week Vaping Use Vaping Use: Never used Substance Use Topics Alcohol use: Yes Comment: not weekly Drug use: No Comment: used marijuana as a teen Reviewed and agreed with Review of Systems completed by the clinical staff. OBJECTIVE PHYSICAL EXAM: BP 133/85 Pulse 89 Ht 6' 0 (1.83m) Wt 186 lb 3.2 oz (84.5kg) SpO2 98% BMI 25.25 kg/(m^2). General: Well developed, well-nourished, in no distress HEENT: Normocephalic, atraumatic. Extraocular movements intact. Sclera are nonicteric. Heart: Regular rate and rhythm, no murmur Lungs: Clear to auscultation, without wheezes Abdomen: Soft, non tender, positive bowel sounds, no masses, no hernia Rectal: On external exam the anus is closed, there is some scarring of the perineal area but no evidence for active infection or fistula. He has a small prolapsing internal hemorrhoid. On internal exam I can feel a hemorrhoid but no masses. There is no bleeding. Squeeze is intact. Extremities: No edema Neurologic: Alert, oriented, and appropriate. DATA: Diagnostic tests reviewed for today's visit: Capsule endoscopy reviewed: Mild duodenitis. Long transit time in the small bowel that could indicate small bacteria overgrowth. Asia Staley MD GENERAL:No weight loss, No malaise, No fevers HEENT:Negative for frequent or significant headaches, Positive for:, Wear glasses or contacts CARDIOVASCULAR: Negative for chest pain, Negative for leg swelling, Negative for palpitaions RESPIRATORY:Negative for cough, Negative for wheezing , Positive for:, Shortness of breath GASTROINTESTINAL: Negative for abdominal discomfort, Negative for blood in stools, Negative for black stools, Positive for: and Change in bowel movements GENITOURINARY: No history of dysuria, frequency or incontinence. ENDOCRINE:None MUSCULOSKELETAL: Negative for joint pain , Negative for swelling, Positive for:, muscle pain or cramps, back pain NEUROLOGIC:Negative for focal numbness Negative for weakness Negative for headache Negative for syncope Negative for dizziness HEMATOLOGIC/LYMPHATIC/IMMUNOLOGIC :Negative for prolonged bleeding, bruising easily or swollen nodes. documented in this encounter [facility] 10-15-2021 Instructions Asia Staley MD - 10/15/2021 11:10 AM EDT I recommend increasing your fiber intake and restart a fiber supplement. I recommend seeing GI to discuss SIBO (small intestine bacterial overgrowth) - I will refer you to [facility] at [place]. documented in this encounter [facility] 10-14-2021 Miscellaneous Notes Camera styy report received from [place] and placed with MD egan for tomorrow for review. Encounter closed. Spoke with patient He has an appointment scheduled with Dr Staley on 10/15/21 for Bowel Issues Patient states he had a camera study ( Swallowed pill) with Dr Yadav and Winifred Fuchs in [facility] but states he did not have a good experience with the office staff there. Called that office to request a copy of the camera study to be faxed for Dr Staley to review. Left a message with the medical record dept. Patient wants to talk with Dr Staley regarding his bowel issues . C/O Ribbon like stools, small bits of stools and feeling as if he has incomplete bowel movements Has taken mag citrate in the past and states that makes him feel better and cleared out but a doctor advised him not to keep doing that due to the chemicals. States that metamucil does not seem to help him. States he feels like he has a blockage . Last CT was 02/11/21. Denies significant abdominal pain- very seldom. He realizes that his problem is very GI related but states he really prefers to seek Dr Staley opinion. Spoke with Darcie Zavala as well- she states that she also has been trying to obtain a copy of the camera study at [facility] but has not received a word back yet. She is going to try to reach out to them and will forward information over to Dr Encarnacion office. documented in this encounter [facility] 09-28-2021 Miscellaneous Notes Patient calls in and states that he no longer takes this medication because it was not helping and does not need the refill. He does say that he would like to have another appointment with Dr. Staley to discuss his ongoing issues with bowel movements. He had a capsule study done at [facility] at [facility]. He states that he really does not want to go back and see them but he will try and get the results from them. I let him know that we could request the results for him if need be but he said he was going to talk to them first. Appointment made with Dr. Staley on October 15 at 10:45 Voice message left for patient regarding message per PA. Advised to call office if further questions or concerns. Phone number provided. PA message noted. Encounter closed. Rx sent to pharmacy. Recommend follow up with PCP if requiring terminal gauger use. Patient never had HIDA as ordered by Dr. Staley. Office appointment if continued RUQ pain. documented in this encounter [facility] documented as of this encounter (statuses as of 09/28/2021) [facility] History of Past illness Narrative* Problem Noted Date Resolved Date Mass on back 09/17/2015 06/17/2020 documented as of this encounter (statuses as of 10/14/2021) [facility] History of Past illness Narrative* Problem Noted Date Resolved Date Mass on back 09/17/2015 06/17/2020 documented as of this encounter (statuses as of 10/15/2021) [facility] History of Past illness Narrative* Problem Noted Date Resolved Date Mass on back 09/17/2015 06/17/2020 documented as of this encounter (statuses as of 12/09/2021) [address] History of Past illness Narrative* Problem Noted Date Resolved Date Mass on back 09/17/2015 06/17/2020 documented as of this encounter (statuses as of 12/10/2021) [address] History of Past illness Narrative* Problem Noted Date Resolved Date Mass on back 09/17/2015 06/17/2020 documented as of this encounter (statuses as of 03/02/2022) [address] History of Past illness Narrative* Problem Noted Date Resolved Date Mass on back 09/17/2015 06/17/2020 documented as of this encounter (statuses as of 03/08/2022) [address] History of Past illness Narrative* Problem Noted Date Resolved Date Mass on back 09/17/2015 06/17/2020 documented as of this encounter (statuses as of 03/24/2022) [address] History of Past illness Narrative* Problem Noted Date Resolved Date Mass on back 09/17/2015 06/17/2020 documented as of this encounter (statuses as of 07/19/2022) [address] History of Past illness Narrative* Problem Noted Date Resolved Date Mass on back 09/17/2015 06/17/2020 documented as of this encounter (statuses as of 07/21/2022) [address] History of Past illness Narrative* Problem Noted Date Resolved Date Mass on back 09/17/2015 06/17/2020 documented as of this encounter (statuses as of 07/21/2022) [address] History of Past illness Narrative* Problem Noted Date Resolved Date Mass on back 09/17/2015 06/17/2020 documented as of this encounter (statuses as of 07/27/2022) [address] History of Past illness Narrative* Problem Noted Date Resolved Date Mass on back 09/17/2015 06/17/2020 documented as of this encounter (statuses as of 08/18/2022) [address] History of Past illness Narrative* Problem Noted Date Resolved Date Mass on back 09/17/2015 06/17/2020 documented as of this encounter (statuses as of 09/08/2022) [facility] History of Past illness Narrative* Problem Noted Date Resolved Date Mass on back 09/17/2015 06/17/2020 documented as of this encounter (statuses as of 09/15/2022) [facility] of Past illness Narrative* Problem Noted Date Resolved Date Mass on back 09/17/2015 06/17/2020 documented as of this encounter (statuses as of 10/07/2022) [facility] of Past illness Narrative* Problem Noted Date Resolved Date Mass on back 09/17/2015 06/17/2020 documented as of this encounter (statuses as of 10/27/2022) [facility] of Past illness Narrative* Problem Noted Date Resolved Date Mass on back 09/17/2015 06/17/2020 documented as of this encounter (statuses as of 11/01/2022) [facility] of Past illness Narrative* Problem Noted Date Resolved Date Mass on back 09/17/2015 06/17/2020 documented as of this encounter (statuses as of 11/02/2022) [facility] of Past illness Narrative* Problem Noted Date Diagnosed Date Resolved Date Mass on back 09/17/2015 06/17/2020 documented as of this encounter (statuses as of 12/06/2022) [facility] of Past illness Narrative* Problem Noted Date Diagnosed Date Resolved Date Mass on back 09/17/2015 06/17/2020 documented as of this encounter (statuses as of 12/08/2022) [facility] of Past illness Narrative* Problem Noted Date Diagnosed Date Resolved Date Mass on back 09/17/2015 06/17/2020 documented as of this encounter (statuses as of 12/21/2022) [facility] of Past illness Narrative* Problem Noted Date Diagnosed Date Resolved Date Mass on back 09/17/2015 06/17/2020 documented as of this encounter (statuses as of 12/28/2022) [facility] of Past illness Narrative* Problem Noted Date Diagnosed Date Resolved Date Mass on back 09/17/2015 06/17/2020 documented as of this encounter (statuses as of 01/12/2023) [facility] of Past illness Narrative* Problem Noted Date Diagnosed Date Resolved Date Mass on back 09/17/2015 06/17/2020 documented as of this encounter (statuses as of 01/26/2023) [facility] of Past illness Narrative* Problem Noted Date Diagnosed Date Resolved Date Mass on back 09/17/2015 06/17/2020 documented as of this encounter (statuses as of 01/26/2023) [facility] of Past illness Narrative* Problem Noted Date Diagnosed Date Resolved Date Mass on back 09/17/2015 06/17/2020 documented as of this encounter (statuses as of 02/04/2023) [facility] of Past illness Narrative* Problem Noted Date Diagnosed Date Resolved Date Mass on back 09/17/2015 06/17/2020 documented as of this encounter (statuses as of 02/08/2023) [facility] of Past illness Narrative* Problem Noted Date Diagnosed Date Resolved Date Mass on back 09/17/2015 06/17/2020 documented as of this encounter (statuses as of 02/12/2023) [facility] of Past illness Narrative* Problem Noted Date Diagnosed Date Resolved Date Mass on back 09/17/2015 06/17/2020 documented as of this encounter (statuses as of 02/15/2023) [facility] of Past illness Narrative* Problem Noted Date Diagnosed Date Resolved Date Mass on back 09/17/2015 06/17/2020 documented as of this encounter (statuses as of 03/01/2023) [facility] of Past illness Narrative* Problem Noted Date Diagnosed Date Resolved Date Mass on back 09/17/2015 06/17/2020 documented as of this encounter (statuses as of 03/08/2023) [address] History of Past illness Narrative* Problem Noted Date Diagnosed Date Resolved Date Mass on back 09/17/2015 06/17/2020 documented as of this encounter (statuses as of 04/15/2023) [address] History of Past illness Narrative* Problem Noted Date Diagnosed Date Resolved Date Mass on back 09/17/2015 06/17/2020 documented as of this encounter (statuses as of 04/19/2023) [facility] note* Diagnosis Gastroesophageal reflux disease without esophagitis- Primary Esophageal reflux documented in this encounter [facility] note* Diagnosis Small intestinal bacterial overgrowth (SIBO)- Primary documented in this encounter [facility] note* Diagnosis Change in bowel habits- Primary Other symptoms involving digestive system Small intestinal bacterial overgrowth (SIBO) documented in this encounter [facility] note* Diagnosis Change in bowel habits Other symptoms involving digestive system documented in this encounter [facility] note* Diagnosis Seronegative inflammatory arthritis- Primary High risk medication use Encounter for long-term (current) use of other medications documented in this encounter [facility] note* Diagnosis Seronegative inflammatory arthritis High risk medication use Encounter for long-term (current) use of other medications documented in this encounter [facility] note* Diagnosis Seronegative inflammatory arthritis documented in this encounter [facility] note* Diagnosis Seronegative arthritis- Primary Other specified arthropathy, site unspecified documented in this encounter [facility] note* Diagnosis Seronegative inflammatory arthritis- Primary documented in this encounter [facility] note* Diagnosis Seronegative inflammatory arthritis- Primary documented in this encounter [facility] note* Diagnosis Seronegative inflammatory arthritis- Primary Positive KAMLA (antinuclear antibody) Other and unspecified nonspecific immunological findings Raynaud's disease without gangrene High risk medication use Encounter for long-term (current) use of other medications documented in this encounter [facility] note* Diagnosis Raynaud's syndrome without gangrene Arteritis, unspecified ([facility]) ([facility]) Arteritis, unspecified documented in this encounter [facility] note* Diagnosis Seronegative inflammatory arthritis documented in this encounter [facility] note* Diagnosis Seronegative arthritis- Primary Other specified arthropathy, site unspecified documented in this encounter [facility] note* Diagnosis Atrial fibrillation with RVR ([facility])- Primary Atrial fibrillation Essential hypertension Unspecified essential hypertension Aortic dilatation ([facility]) Aortic ectasia, unspecified site documented in this encounter [facility] note* Diagnosis Seronegative arthritis- Primary Other specified arthropathy, site unspecified documented in this encounter [facility] note* Diagnosis Raynaud's syndrome without gangrene- Primary Arteritis, unspecified (CMS/HCC) (HCC) Arteritis, unspecified Raynaud's syndrome without gangrene Arteritis, unspecified (CMS/HCC) (HCC) Arteritis, unspecified documented in this encounter [facility] note* Diagnosis Seronegative arthritis- Primary Other specified arthropathy, site unspecified documented in this encounter [facility] note* Diagnosis Seronegative inflammatory arthritis- Primary Raynaud's disease without gangrene High risk medication use Encounter for long-term (current) use of other medications Olecranon bursitis of right elbow Olecranon bursitis documented in this encounter [facility] note* Diagnosis Chronic kidney disease, stage 4 (severe) ([facility])- Primary documented in this encounter [facility] note* Diagnosis Seronegative arthritis- Primary Other specified arthropathy, site unspecified documented in this encounter [facility] note* Diagnosis Seronegative inflammatory arthritis documented in this encounter [facility] note* Diagnosis Seronegative arthritis- Primary Other specified arthropathy, site unspecified documented in this encounter [facility] note* Diagnosis Seronegative arthritis- Primary Other specified arthropathy, site unspecified documented in this encounter [facility] note* Diagnosis History of decompression of ulnar nerve- Primary Other postprocedural status Atrophy of muscle of right hand Right hand weakness Muscle weakness (generalized) documented in this encounter [facility] note* Diagnosis Seronegative arthritis- Primary Other specified arthropathy, site unspecified documented in this encounter [facility] note* Diagnosis Peripheral arterial disease (HCC)- Primary Peripheral vascular disease, unspecified documented in this encounter [facility] for referral (narrative)* Diagnostic Procedure Only (Routine) - Closed Specialty Diagnoses / Procedures Referred By Hood stevenson Referred To Contact XR IMAGING Diagnoses Change in bowel habits Procedures XR ABDOMEN 2V ROUTINE SUPINE W UPRIGHT/DECUB/CTL RADIOLOGIC EXAM ABDOMEN 2 VIEWS María Elena Woo PA-C [address] [place] [address] Xr Imaging Referral ID Status Reason Start Date Expiration Date V isits Requested Visits Authorized [id number] Closed Auto-Generate d Referral 12/09/2021 01/08/[address] [facility] for referral (narrative)* Diagnostic Procedure Only (Routine) - Closed Specialty Diagnoses / Procedures Referred By Contac t Referred To Contact XR IMAGING Diagnoses Change in bowel habits Procedures XR ABDOMEN 2V ROUTINE SUPINE W UPRIGHT/DECUB/CTL RADIOLOGIC EXAM ABDOMEN 2 VIEWS María Elena Woo PA-C [address] [place] [address] Xr Imaging Referral ID Status Reason Start Date Expiration Date V isits Requested Visits Authorized [id number] Closed Auto-Generate d Referral 12/09/2021 01/08/[address] [facility] for referral (narrative)* Outpatient Procedure (Routine) - Authorized Specialty Diagnoses / Procedures Referred By Contac t Referred To Contact [facility] Diagnoses Peripheral arterial disease (HCC) Procedures US ARM ARTERIAL [place] VAS LAB DUP-SCAN UXTR ART/ARTL BPGS COMPL BI STUDY Jennifer Wolfe DO [address] [place] [address] [facility][Note 3] Vascular [place] [address] [place] [address] Referral ID Status Reason Start Date Expiration Date Visits Requested Visits Authorized [id number] Authorized Auto-Generat ed Referral 3 04/06/[address] [facility] for visit Narrative* Diagnostic Procedure Only (Routine) - Closed Specialty Diagnoses / Procedures Referred By Contac t Referred To Contact XR IMAGING Diagnoses Change in bowel habits Procedures XR ABDOMEN 2V ROUTINE SUPINE W UPRIGHT/DECUB/CTL RADIOLOGIC EXAM ABDOMEN 2 VIEWS María Elena Woo PA-C [address] [place] [address] Xr Imaging Referral ID Status Reason Start Date Expiration Date V isits Requested Visits Authorized [id number] Closed Auto-Generate d Referral 12/09/2021 01/08/2023 1 1 [facility] Summary Purpose Family History No Family History Records FoundNo Family History Records FoundNo Family History Records FoundNo Family History Records FoundNo Family History Records FoundNo Family History Records FoundNo Family History Records Found Advance Directives No Advanced Directives Records FoundDocuments on File Type Date Recorded Patient Fingerprint Technician Expl anation Advance Directives and Living Will Power of Agricultural Produce Packer Documents on File Type Date Recorded Patient Fingerprint Technician Expl anation Advance Directive(s) 02/25/2021 10:37 AM Advance Directive(s) 02/18/2021 1:08 PM Advance Directive(s) 06/25/2020 11:31 AM Advance Directive(s) 05/26/2020 3:39 PM Advance Directive(s) 04/22/2020 11:09 AM Advance Directive(s) 10/29/2018 8:43 AM Advance Directive(s) 06/07/2018 8:56 PM Documents on File Type Date Recorded Patient Fingerprint Technician Expl anation Advance Directive(s) 02/25/2021 10:37 AM Advance Directive(s) 02/18/2021 1:08 PM Advance Directive(s) 06/25/2020 11:31 AM Advance Directive(s) 05/26/2020 3:39 PM Advance Directive(s) 04/22/2020 11:09 AM Advance Directive(s) 10/29/2018 8:43 AM Advance Directive(s) 06/07/2018 8:56 PM Reason for Referral Status Reason Specialty Diagnoses / Procedures Referred By Contact Referred To Contact Authorized Radiology Diagnoses Confusion Procedures MRI BRAIN W WO CONTRAST Esdras Hathaway, DO [address] [place] [id number] Specialty Diagnoses / Procedures Referred By Contac t Referred To Contact Gastroenterology Diagnoses Small intestinal bacterial overgrowth (SIBO) Procedures CONSULT TO GASTROENTEROLOGY OFFICE/OUTPATIENT [facility] 60-74 MINUTES Asia Staley MD [address] [address] Referral ID Status Reason Start Date Expiration Date Visits Requested Visits Authorized [id number] Authorized PCP Requested Referral 10/15/2021 10/15/2022 1 1 Specialty Diagnoses / Procedures Referred By Contac t Referred To Contact Cardiology Diagnoses Raynaud's syndrome without gangrene Arteritis, unspecified (CMS/HCC) (HCC) Procedures Vascular US upper extremity arterial with cold immersion Vascular US upper extremity arterial PVR Gopal Barboza Jr., MD [address] [place] [address] Referral ID Status Reason Start Date Expiration Date Visits Requested Visits Authorized [id number] Pending Review Perform Procedure 09/03/2022 03/02/2023 1 1 Specialty Diagnoses / Procedures Referred By Contac t Referred To Contact Cardiology Diagnoses Chronic kidney disease, stage 4 (severe) (HCC) Procedures Vascular US upper extremity vein mapping for bypass bilateral Azucena Kraft MD [address] [place] [address] Referral ID Status Reason Start Date Expiration Date Visits Requested Visits Authorized [id number] Pending Review Perform Procedure 09/10/2022 03/09/2023 1 1 Assessments Diagnosis Confusion Unspecified psychosis Additional Source Comments (unrecognized sect ion and content) No Status Records FoundNo Status Records FoundNo Status Records FoundNo Status Records FoundNo Status Records FoundNo Status Records FoundNo Status Records Found INFORMATION SOURCE (unrecogn ized section and content) DATE CREATED AUTHOR AUTHOR'S ORGANIZ ATION 04/23/2020 [facility] DATE CREATED AUTHOR AUTHOR'S ORGANIZ ATION 12/10/[address] [facility] DATE CREATED AUTHOR AUTHOR'S ORGANIZ ATION 09/16/2022 [facility] DATE CREATED AUTHOR AUTHOR'S ORGANIZ ATION 12/09/2022 [facility] DATE CREATED AUTHOR AUTHOR'S ORGANIZ ATION 05/05/2023 [facility] DATE CREATED AUTHOR AUTHOR'S ORGANIZ ATION 06/14/2023 [facility] Source Comments (unrecognize d section and content) In the event this informatio n is protected by the Federal Confidentiality of Alcohol and Drug Abuse Patient Records regulations: The Federal rules restrict any use of the information to criminally investigate or prosecute any alcohol or drug abuse patient.[facility] the event this information is protected by the Federal Confidentiality of Alcohol and Drug Abuse Patient Records regulations: The Federal rules restrict any use of the information to criminally investigate or prosecute any alcohol or drug abuse patient.[facility] Center[facility] the event this information is protected by the Federal Confidentiality of Alcohol and Drug Abuse Patient Records regulations: The Federal rules restrict any use of the information to criminally investigate or prosecute any alcohol or drug abuse patient.[facility] the event this information is protected by the Federal Confidentiality of Alcohol and Drug Abuse Patient Records regulations: The Federal rules restrict any use of the information to criminally investigate or prosecute any alcohol or drug abuse patient.[facility] the event this information is protected by the Federal Confidentiality of Alcohol and Drug Abuse Patient Records regulations: The Federal rules restrict any use of the information to criminally investigate or prosecute any alcohol or drug abuse patient.[facility] Center[facility] the event this information is protected by the Federal Confidentiality of Alcohol and Drug Abuse Patient Records regulations: The Federal rules restrict any use of the information to criminally investigate or prosecute any alcohol or drug abuse patient.[facility] Center[facility] the event this information is protected by the Federal Confidentiality of Alcohol and Drug Abuse Patient Records regulations: The Federal rules restrict any use of the information to criminally investigate or prosecute any alcohol or drug abuse patient.[facility] Center[facility] the event this information is protected by the Federal Confidentiality of Alcohol and Drug Abuse Patient Records regulations: The Federal rules restrict any use of the information to criminally investigate or prosecute any alcohol or drug abuse patient.[facility] Center[facility] the event this information is protected by the Federal Confidentiality of Alcohol and Drug Abuse Patient Records regulations: The Federal rules restrict any use of the information to criminally investigate or prosecute any alcohol or drug abuse patient.[facility] Center[facility] the event this information is protected by the Federal Confidentiality of Alcohol and Drug Abuse Patient Records regulations: The Federal rules restrict any use of the information to criminally investigate or prosecute any alcohol or drug abuse patient.[facility] Center[facility] the event this information is protected by the Federal Confidentiality of Alcohol and Drug Abuse Patient Records regulations: The Federal rules restrict any use of the information to criminally investigate or prosecute any alcohol or drug abuse patient.[facility] Center[facility] the event this information is protected by the Federal Confidentiality of Alcohol and Drug Abuse Patient Records regulations: The Federal rules restrict any use of the information to criminally investigate or prosecute any alcohol or drug abuse patient.[facility] Center[facility] the event this information is protected by the Federal Confidentiality of Alcohol and Drug Abuse Patient Records regulations: The Federal rules restrict any use of the information to criminally investigate or prosecute any alcohol or drug abuse patient.[facility] Center[facility] the event this information is protected by the Federal Confidentiality of Alcohol and Drug Abuse Patient Records regulations: The Federal rules restrict any use of the information to criminally investigate or prosecute any alcohol or drug abuse patient.[facility] Center[facility] the event this information is protected by the Federal Confidentiality of Alcohol and Drug Abuse Patient Records regulations: The Federal rules restrict any use of the information to criminally investigate or prosecute any alcohol or drug abuse patient.[facility] Center[facility] the event this information is protected by the Federal Confidentiality of Alcohol and Drug Abuse Patient Records regulations: The Federal rules restrict any use of the information to criminally investigate or prosecute any alcohol or drug abuse patient.[facility] CenterIn the event this information is protected by the Federal Confidentiality of Alcohol and Drug Abuse Patient Records regulations: The Federal rules restrict any use of the information to criminally investigate or prosecute any alcohol or drug abuse patient.[facility] CenterIn the event this information is protected by the Federal Confidentiality of Alcohol and Drug Abuse Patient Records regulations: The Federal rules restrict any use of the information to criminally investigate or prosecute any alcohol or drug abuse patient.[facility] CenterIn the event this information is protected by the Federal Confidentiality of Alcohol and Drug Abuse Patient Records regulations: The Federal rules restrict any use of the information to criminally investigate or prosecute any alcohol or drug abuse patient.[facility] CenterIn the event this information is protected by the Federal Confidentiality of Alcohol and Drug Abuse Patient Records regulations: The Federal rules restrict any use of the information to criminally investigate or prosecute any alcohol or drug abuse patient.[facility] CenterIn the event this information is protected by the Federal Confidentiality of Alcohol and Drug Abuse Patient Records regulations: The Federal rules restrict any use of the information to criminally investigate or prosecute any alcohol or drug abuse patient.[facility] CenterIn the event this information is protected by the Federal Confidentiality of Alcohol and Drug Abuse Patient Records regulations: The Federal rules restrict any use of the information to criminally investigate or prosecute any alcohol or drug abuse patient.[facility] CenterIn the event this information is protected by the Federal Confidentiality of Alcohol and Drug Abuse Patient Records regulations: The Federal rules restrict any use of the information to criminally investigate or prosecute any alcohol or drug abuse patient.[facility] CenterIn the event this information is protected by the Federal Confidentiality of Alcohol and Drug Abuse Patient Records regulations: The Federal rules restrict any use of the information to criminally investigate or prosecute any alcohol or drug abuse patient.[facility] CenterIn the event this information is protected by the Federal Confidentiality of Alcohol and Drug Abuse Patient Records regulations: The Federal rules restrict any use of the information to criminally investigate or prosecute any alcohol or drug abuse patient.[facility] CenterIn the event this information is protected by the Federal Confidentiality of Alcohol and Drug Abuse Patient Records regulations: The Federal rules restrict any use of the information to criminally investigate or prosecute any alcohol or drug abuse patient.[facility] CenterIn the event this information is protected by the Federal Confidentiality of Alcohol and Drug Abuse Patient Records regulations: The Federal rules restrict any use of the information to criminally investigate or prosecute any alcohol or drug abuse patient.[facility] CenterIn the event this information is protected by the Federal Confidentiality of Alcohol and Drug Abuse Patient Records regulations: The Federal rules restrict any use of the information to criminally investigate or prosecute any alcohol or drug abuse patient.[facility] CenterIn the event this information is protected by the Federal Confidentiality of Alcohol and Drug Abuse Patient Records regulations: The Federal rules restrict any use of the information to criminally investigate or prosecute any alcohol or drug abuse patient.[facility] CenterIn the event this information is protected by the Federal Confidentiality of Alcohol and Drug Abuse Patient Records regulations: The Federal rules restrict any use of the information to criminally investigate or prosecute any alcohol or drug abuse patient.[facility] CenterIn the event this information is protected by the Federal Confidentiality of Alcohol and Drug Abuse Patient Records regulations: The Federal rules restrict any use of the information to criminally investigate or prosecute any alcohol or drug abuse patient.[facility] CenterIn the event this information is protected by the Federal Confidentiality of Alcohol and Drug Abuse Patient Records regulations: The Federal rules restrict any use of the information to criminally investigate or prosecute any alcohol or drug abuse patient.[facility] CenterIn the event this information is protected by the Federal Confidentiality of Alcohol and Drug Abuse Patient Records regulations: The Federal rules restrict any use of the information to criminally investigate or prosecute any alcohol or drug abuse patient.[facility] CenterIn the event this information is protected by the Federal Confidentiality of Alcohol and Drug Abuse Patient Records regulations: The Federal rules restrict any use of the information to criminally investigate or prosecute any alcohol or drug abuse patient.[facility] CenterIn the event this information is protected by the Federal Confidentiality of Alcohol and Drug Abuse Patient Records regulations: The Federal rules restrict any use of the information to criminally investigate or prosecute any alcohol or drug abuse patient.[facility] Reason for Visit (unrecogniz ed section and content) Reason Comments Future Appointment Reason Comments Established Patient Bowel Issues Feels like he has a Blockage Reason Comments Bacterial overgrowth Capsule 09/11/21 EGD 02/25/21 Labs in [place] Specialty Diagnoses / Procedures Referred By Hood stevenson Referred To Contact Gastroenterology Diagnoses Small intestinal bacterial overgrowth (SIBO) Procedures CONSULT TO GASTROENTEROLOGY OFFICE/OUTPATIENT [facility] MDM 60-74 MINUTES Asia Staley MD [address] [address] Referral ID Status Reason Start Date Expiration Date V isits Requested Visits Authorized [id number] Closed PCP Requested Referral 10/15/2021 10/15/2022 1 1 Reason Comments Recheck Reason Comments Medication Problem Reason Comments Refill Request Reason Onset Date Comments SPP Inflammatory Conditions - Treatment Referral 07/21/2022 [facility] Insurance Authorization 07/21/2022 [place] submi tted Reason Comments Patient Question Reason Onset Date Comments Refill Request 07/27/2022 Reason Comments Established Patient Specialty Diagnoses / Procedures Referred By Hood stevenson Referred To Contact Cardiology Diagnoses Raynaud's syndrome without gangrene Arteritis, unspecified (CMS/HCC) (HCC) Procedures Vascular US upper extremity arterial with cold immersion Vascular US upper extremity arterial PVR Gopal Barboza Jr., MD [address] [place] [address] Referral ID Status Reason Start Date Expiration Date Visits Requested Visits Authorized [id number] Pending Review Perform Procedure 09/03/2022 03/02/2023 1 1 Reason Onset Date Comments SPP Inflammatory Conditions - Medication Refill 10/07/2022 [facility] Reason Comments Established Patient Follow-Up ECHO resul ts Reason Comments Results Reason Onset Date Comments SPP Inflammatory Conditions - Medication Refill 11/02/2022 [facility] Reason Onset Date Comments SPP Inflammatory Conditions - Medication Refill 12/06/2022 [facility] Sureclick Reason Comments Patient Update Infection cleared up Reason Onset Date Comments SPP Inflammatory Conditions - Medication Refill 12/28/2022 [facility] Reason Onset Date Comments SPP Inflammatory Conditions - Follow-up 01/27/20 23 [facility]- renewal Insurance Authorization 01/26/2023 [place] submi tted Reason Comments Patient Update Reason Onset Date Comments SPP Inflammatory Conditions - Medication Refill 02/07/2023 [facility] Reason Comments New Patient That scar right ther e (right arm)SurgeryMultiple surgeries Still screwed upPain Reason Comments Appointment Reason Onset Date Comments SPP Inflammatory Conditions - Medication Refill 03/08/2023 En[facility] Reason Comments New Patient Care Teams (unrecognized sec tion and content) Procurement Accountant Relationship Specialty Start Date End Date Darcie Zavala, OUTSIDE SALES REPRESENTATIVE INSURANCE.BASIN OPERATOR [address] [place] [address] PCP - General Family Practice 02/11/21 Procurement Accountant Relationship Specialty Start Date End Date Darcie Zavala, OUTSIDE SALES REPRESENTATIVE INSURANCE.BASIN OPERATOR [address] [place] [address] PCP - General Family Practice 02/11/21 Procurement Accountant Relationship Specialty Start Date End Date Darcie Zavala, OUTSIDE SALES REPRESENTATIVE INSURANCE.BASIN OPERATOR [address] [place] [address] PCP - General Family Practice 02/11/21 Procurement Accountant Relationship Specialty Start Date End Date Darcie Zavala, OUTSIDE SALES REPRESENTATIVE INSURANCE.BASIN OPERATOR [address] [place] [address] PCP - General Family Practice 02/11/21 Procurement Accountant Relationship Specialty Start Date End Date Darcie Zavala, OUTSIDE SALES REPRESENTATIVE INSURANCE.BASIN OPERATOR PCP - General Family Medicine 02/11/21 Procurement Accountant Relationship Specialty Start Date End Date Darcie Zavala, OUTSIDE SALES REPRESENTATIVE INSURANCE.BASIN OPERATOR PCP - General Family Medicine 02/11/21 Procurement Accountant Relationship Specialty Start Date End Date Darcie Zavala, OUTSIDE SALES REPRESENTATIVE INSURANCE.BASIN OPERATOR PCP - General Family Medicine 02/11/21 Procurement Accountant Relationship Specialty Start Date End Date Darcie Zavala, OUTSIDE SALES REPRESENTATIVE INSURANCE.BASIN OPERATOR [address] [place], [place] [phone] PCP - General Family Medicine 02/11/21 Procurement Accountant Relationship Specialty Start Date End Date Darcie Zavala, OUTSIDE SALES REPRESENTATIVE INSURANCE.BASIN OPERATOR [address] [place], [place] [phone] PCP - General Family Medicine 02/11/21 Procurement Accountant Relationship Specialty Start Date End Date Dracie Zavala, OUTSIDE SALES REPRESENTATIVE INSURANCE.BASIN OPERATOR [address] [place], [place] [phone] PCP - General Family Medicine 02/11/21 Procurement Accountant Relationship Specialty Start Date End Date Darcie Zavala, OUTSIDE SALES REPRESENTATIVE INSURANCE.BASIN OPERATOR [address] [place], [place] [phone] PCP - General Family Medicine 02/11/21 Procurement Accountant Relationship Specialty Start Date End Date Darcie Zavala, OUTSIDE SALES REPRESENTATIVE INSURANCE.BASIN OPERATOR [address] [place], [place] [phone] PCP - General Family Medicine 02/11/21 Procurement Accountant Relationship Specialty Start Date End Date Esdras Hathaway DO [address] [place] [phone] PCP - General 08/16/18 Procurement Accountant Relationship Specialty Start Date End Date Darcie Zavala, OUTSIDE SALES REPRESENTATIVE INSURANCE.BASIN OPERATOR [address] [place], [place] [phone] PCP - General Family Medicine 02/11/21 Procurement Accountant Relationship Specialty Start Date End Date Darcie Zavala, OUTSIDE SALES REPRESENTATIVE INSURANCE.BASIN OPERATOR [address] [place], [place] [phone] PCP - General Family Medicine 02/11/21 Procurement Accountant Relationship Specialty Start Date End Date Darcie Zavala, OUTSIDE SALES REPRESENTATIVE INSURANCE.BASIN OPERATOR [address] [place], [place] [phone] PCP - General Family Medicine 02/11/21 Procurement Accountant Relationship Specialty Start Date End Date Darcie Zavala, OUTSIDE SALES REPRESENTATIVE INSURANCE.BASIN OPERATOR [address] [place], [place] [phone] PCP - General Family Medicine 02/11/21 Procurement Accountant Relationship Specialty Start Date End Date Esdras Hathaway DO [address], [place] [phone] PCP - General 08/16/18 Procurement Accountant Relationship Specialty Start Date End Date Darcie Zavala, OUTSIDE SALES REPRESENTATIVE INSURANCE.BASIN OPERATOR [address] [place], [place] [phone] PCP - General Family Medicine 02/11/21 Procurement Accountant Relationship Specialty Start Date End Date Darcie Zavala, OUTSIDE SALES REPRESENTATIVE INSURANCE.BASIN OPERATOR [address] [place], [place] [phone] PCP - General Family Medicine 02/11/21 Procurement Accountant Relationship Specialty Start Date End Date Esdras Hathaway DO [address], [place] [phone] PCP - General 08/16/18 Procurement Accountant Relationship Specialty Start Date End Date Darcie Zavala, OUTSIDE SALES REPRESENTATIVE INSURANCE.BASIN OPERATOR [address] [place], [place] [phone] PCP - General Family Medicine 02/11/21 Procurement Accountant Relationship Specialty Start Date End Date Darcie Zavala, OUTSIDE SALES REPRESENTATIVE INSURANCE.BASIN OPERATOR [address] [place], [place] [phone] PCP - General Family Medicine 02/11/21 Procurement Accountant Relationship Specialty Start Date End Date Darcie Zavala, OUTSIDE SALES REPRESENTATIVE INSURANCE.BASIN OPERATOR [address] [place] [address] PCP - General Family Medicine 02/11/21 Procurement Accountant Relationship Specialty Start Date End Date Darcie Zavala, OUTSIDE SALES REPRESENTATIVE INSURANCE.BASIN OPERATOR [address] [place] [address] PCP - General Family Medicine 02/11/21 Procurement Accountant Relationship Specialty Start Date End Date Darcie Zavala, OUTSIDE SALES REPRESENTATIVE INSURANCE.BASIN OPERATOR [address] [place] [address] PCP - General Family Medicine 02/11/21 Procurement Accountant Relationship Specialty Start Date End Date Darcie Zavala, OUTSIDE SALES REPRESENTATIVE INSURANCE.BASIN OPERATOR [address] [place] [address] PCP - General Family Medicine 02/11/21 Procurement Accountant Relationship Specialty Start Date End Date Darcie Zavala, OUTSIDE SALES REPRESENTATIVE INSURANCE.BASIN OPERATOR [address] [place] [address] PCP - General Family Medicine 02/11/21 Procurement Accountant Relationship Specialty Start Date End Date Darcie Zavala, OUTSIDE SALES REPRESENTATIVE INSURANCE.BASIN OPERATOR [address] [place] [address] PCP - General Family Medicine 02/11/21 Procurement Accountant Relationship Specialty Start Date End Date Darcie Zavala, OUTSIDE SALES REPRESENTATIVE INSURANCE.BASIN OPERATOR [address] [place] [address] PCP - General Family Medicine 02/11/21 FOR RECORDS PERTAINING TO PATIENTS WHO ARE OR HAVE BEEN ENROLLED IN A CHEMICAL DEPENDENCY/SUBSTANCEABUSE PROGRAM, SOME INFORMATION MAY BE OMITTED. This clinical summary was aggregated from multiple sources. Caution should be exercised in using it in the provision of clinical care. This summary normalizes information from multiple sources, and as a consequence, information in this document may materially change the coding, format and clinical context of patient data. In addition, data may be omitted in some cases. CLINICAL DECISIONS SHOULD BE BASED ON THE PRIMARY CLINICAL RECORDS. [facility] [employer] [facility]. provides no warranty or guarantee of the accuracy or completeness of information in this document.
[2023-06-15 21:33] LABS: Absolute Lymphocyte Count 0.62 X10^3/uL (0.83-4.51); Absolute Neutrophil Count 5.4 X10^3/uL (2.0-7.7); Hematocrit 32.3 % (40-54); Hemoglobin 10.1 g/dL (13.0-16.5); Lymphocyte # 0.62 X10^3/ul (0.83-4.51); Mean Corp Hgb Conc 31.3 g/dL (32-36); Mean Corpuscular Hgb 28.3 pg (27.0-32.0); Mean Corpuscular Volume 90.5 fL (80-94); Mean Platelet Vol. 10.2 fl (6.2-12.0); Monocyte# 0.24 X10^3/uL; Monocyte% 3.9 % (0-10); NRBC Flagged by Analyzer 0 % (0-5); Neutrophil # 5.35 X10^3/uL (2.7-7.7); Neutrophil % 85.8 % (47-70); Platelet Count 242 K/mm3 (150-450); RBC Distribution Width CV 19.7 % (11.6-14.6); RBC Distribution Width SD 64.9 fl (35.1-43.9); Red Blood Count 3.57 M/mm3 (4.6-6.2); White Blood Count 6.2 K/mm3 (4.4-11.0)
[2023-06-15 21:49] LABS: ALB/GLOB Ratio 0.8 RATIO (0.9-2.4); AST(SGOT) 23 U/L (15-37); Alanine Aminotransfer ALT/SGPT 35 U/L (16-61); Albumin, Serum 3.2 g/dL (3.2-5.0); Alkaline Phosphatase 57 U/L (45-117); Anion Gap 5 (5-15); BUN 27 mg/dL (7-18); BUN/Creat Ratio 30.5 RATIO (10-20); Calcium,Total 9.1 mg/dL (8.5-10.1); Chloride 103 mmol/L (98-107); Creatinine, Serum 0.89 mg/dL (0.70-1.30); EST Glomerular Filtration Rate 90 mL/min (>60); Est Glom Filt Rate - Afr Amer 109 mL/min (>60); Globulin 4.2 g/dL (2.2-4.2); Glucose 130 mg/dL (74-106); Potassium 3.7 mmol/L (3.5-5.1); Protein, Total 7.4 g/dL (6.4-8.2); Sodium Level 138 mmol/L (136-145)
[2023-06-15 21:57] LABS: Hemoglobin A1c 5.5 % (3.8-5.6)
== END | disposition home or self-care (01) ==
PROVIDERS: PCP Nurse Practitioner; Visit Provider Nurse Practitioner
DX: I48.0 Paroxysmal atrial fibrillation (principal); R60.0 Localized edema; R73.9 Hyperglycemia, unspecified
CPT/HCPCS: 80053; 83036; 85025

== ENCOUNTER → 2023-08-11 | Outpatient (CLI) | payer MEDICARE, MEDICAID, SELFPAY ==
[2023-08-11 21:37] LABS: Hematocrit 33.5 % (40-54); Hemoglobin 10.4 g/dL (13.0-16.5); Mean Corpuscular Hgb 27.7 pg (27.0-32.0); Mean Corpuscular Volume 89.1 fL (80-94); Mean Platelet Vol. 10.7 fl (6.2-12.0); Platelet Count 173 K/mm3 (150-450); RBC Distribution Width CV 18.1 % (11.6-14.6); RBC Distribution Width SD 58.6 fl (35.1-43.9); Red Blood Count 3.76 M/mm3 (4.6-6.2); White Blood Count 11.8 K/mm3 (4.4-11.0)
[2023-08-11 21:51] LABS: ALB/GLOB Ratio 0.7 RATIO (0.9-2.4); AST(SGOT) 35 U/L (15-37); Alanine Aminotransfer ALT/SGPT 62 U/L (16-61); Albumin, Serum 2.8 g/dL (3.2-5.0); Alkaline Phosphatase 59 U/L (45-117); Anion Gap 5 (5-15); BUN 20 mg/dL (7-18); BUN/Creat Ratio 24.8 RATIO (10-20); Calcium,Total 8.5 mg/dL (8.5-10.1); Chloride 109 mmol/L (98-107); EST Glomerular Filtration Rate 101 mL/min (>60); Est Glom Filt Rate - Afr Amer 122 mL/min (>60); Globulin 4.1 g/dL (2.2-4.2); Glucose 135 mg/dL (74-106); Potassium 4.4 mmol/L (3.5-5.1); Protein, Total 6.9 g/dL (6.4-8.2); Sodium Level 138 mmol/L (136-145)
== END | disposition home or self-care (01) ==
PROVIDERS: PCP Nurse Practitioner; Visit Provider Nurse Practitioner
DX: I50.9 Heart failure, unspecified (principal); I48.0 Paroxysmal atrial fibrillation
CPT/HCPCS: 80053; 83880; 85027

== ENCOUNTER → 2023-08-16 | Outpatient (CLI) | payer MEDICARE, MEDICAID, SELFPAY ==
[2023-08-16 21:42] LABS: Absolute Lymphocyte Count 1.15 X10^3/uL (0.83-4.51); Absolute Neutrophil Count 8.6 X10^3/uL (2.0-7.7); Basophil# 0.01 X10^3/uL; Basophil% 0.1 % (0-1); Eosinophil# 0.01 X10^3/uL; Eosinophils% 0.1 % (0-5); Hematocrit 37.2 % (40-54); Hemoglobin 11.9 g/dL (13.0-16.5); Lymphocyte # 1.15 X10^3/ul (0.83-4.51); Lymphocyte % 11.6 % (19-41); Mean Corpuscular Hgb 28.1 pg (27.0-32.0); Mean Corpuscular Volume 87.7 fL (80-94); Mean Platelet Vol. 10.4 fl (6.2-12.0); Monocyte# 0.13 X10^3/uL; Monocyte% 1.3 % (0-10); NRBC Flagged by Analyzer 0 % (0-5); Neutrophil # 8.56 X10^3/uL (2.7-7.7); Neutrophil % 86.4 % (47-70); Platelet Count 283 K/mm3 (150-450); RBC Distribution Width CV 17.8 % (11.6-14.6); RBC Distribution Width SD 56.7 fl (35.1-43.9); Red Blood Count 4.24 M/mm3 (4.6-6.2); White Blood Count 9.9 K/mm3 (4.4-11.0)
[2023-08-16 21:53] LABS: Anion Gap 8 (5-15); BUN 38 mg/dL (7-18); BUN/Creat Ratio 34.9 RATIO (10-20); Calcium,Total 9.5 mg/dL (8.5-10.1); Chloride 101 mmol/L (98-107); Creatinine, Serum 1.09 mg/dL (0.70-1.30); EST Glomerular Filtration Rate 71 mL/min (>60); Est Glom Filt Rate - Afr Amer 86 mL/min (>60); Glucose 209 mg/dL (74-106); Iron Binding Capacity,Total 258 ug/dL (250-450); Potassium 4.4 mmol/L (3.5-5.1); Sodium Level 136 mmol/L (136-145)
[2023-08-18 08:12] LABS: Transferrin 206 mg/dL (177-329)
== END | disposition home or self-care (01) ==
PROVIDERS: PCP Nurse Practitioner; Visit Provider Nurse Practitioner
DX: E61.1 Iron deficiency (principal); D64.9 Anemia, unspecified
CPT/HCPCS: 80048; 83550; 84466; 85025

== ENCOUNTER → 2023-09-12 | Outpatient (CLI) | payer MEDICARE, MEDICAID, SELFPAY ==
[2023-09-12 21:47] LABS: Absolute Lymphocyte Count 1.05 X10^3/uL (0.83-4.51); Absolute Neutrophil Count 9.7 X10^3/uL (2.0-7.7); Basophil# 0.01 X10^3/uL; Basophil% 0.1 % (0-1); Hematocrit 38.2 % (40-54); Hemoglobin 11.7 g/dL (13.0-16.5); Lymphocyte # 1.05 X10^3/ul (0.83-4.51); Lymphocyte % 9.5 % (19-41); Mean Corp Hgb Conc 30.6 g/dL (32-36); Mean Corpuscular Hgb 27.1 pg (27.0-32.0); Mean Corpuscular Volume 88.4 fL (80-94); Mean Platelet Vol. 9.6 fl (6.2-12.0); Monocyte# 0.25 X10^3/uL; Monocyte% 2.3 % (0-10); NRBC Flagged by Analyzer 0 % (0-5); Neutrophil # 9.68 X10^3/uL (2.7-7.7); Neutrophil % 87.6 % (47-70); Platelet Count 293 K/mm3 (150-450); RBC Distribution Width CV 17.2 % (11.6-14.6); RBC Distribution Width SD 54.9 fl (35.1-43.9); Red Blood Count 4.32 M/mm3 (4.6-6.2); White Blood Count 11.1 K/mm3 (4.4-11.0)
[2023-09-12 22:10] LABS: ALB/GLOB Ratio 0.8 RATIO (0.9-2.4); AST(SGOT) 23 U/L (15-37); Alanine Aminotransfer ALT/SGPT 48 U/L (16-61); Albumin, Serum 3.2 g/dL (3.2-5.0); Alkaline Phosphatase 62 U/L (45-117); Anion Gap 7 (5-15); BUN 28 mg/dL (7-18); BUN/Creat Ratio 29.5 RATIO (10-20); Chloride 104 mmol/L (98-107); Creatinine, Serum 0.95 mg/dL (0.70-1.30); EST Glomerular Filtration Rate 83 mL/min (>60); Est Glom Filt Rate - Afr Amer 101 mL/min (>60); Glucose 225 mg/dL (74-106); PSA,Total- Diagnostic 0.29 ng/mL (0.0-4.0); Potassium 4.2 mmol/L (3.5-5.1); Protein, Total 7.2 g/dL (6.4-8.2); Sodium Level 138 mmol/L (136-145); Thyroid Stim Hormone (TSH) 0.59 uIU/mL (0.358-3.74)
[2023-09-13 15:18] LABS: Hemoglobin A1c 6.2 % (3.8-5.6)
== END | disposition home or self-care (01) ==
PROVIDERS: PCP Nurse Practitioner; Visit Provider Nurse Practitioner
DX: I50.9 Heart failure, unspecified (principal); I48.0 Paroxysmal atrial fibrillation; G47.00 Insomnia, unspecified; R73.9 Hyperglycemia, unspecified; R97.20 Elevated prostate specific antigen [PSA]
CPT/HCPCS: 80053; 83036; 84153; 84443; 85025

== ENCOUNTER → 2023-10-31 | Outpatient (CLI) | payer MEDICARE, MEDICAID, SELFPAY ==
[2023-10-31 22:32] LABS: Absolute Lymphocyte Count 1.46 X10^3/uL (0.83-4.51); Absolute Neutrophil Count 9.6 X10^3/uL (2.0-7.7); Basophil# 0.03 X10^3/uL; Basophil% 0.3 % (0-1); Hematocrit 37.3 % (40-54); Hemoglobin 11.6 g/dL (13.0-16.5); Lymphocyte # 1.46 X10^3/ul (0.83-4.51); Lymphocyte % 12.4 % (19-41); Mean Corp Hgb Conc 31.1 g/dL (32-36); Mean Corpuscular Hgb 27.2 pg (27.0-32.0); Mean Corpuscular Volume 87.6 fL (80-94); Mean Platelet Vol. 10.3 fl (6.2-12.0); Monocyte# 0.64 X10^3/uL; Monocyte% 5.4 % (0-10); NRBC Flagged by Analyzer 0 % (0-5); Neutrophil # 9.59 X10^3/uL (2.7-7.7); Neutrophil % 81.4 % (47-70); Platelet Count 298 K/mm3 (150-450); RBC Distribution Width CV 17.6 % (11.6-14.6); RBC Distribution Width SD 56.5 fl (35.1-43.9); Red Blood Count 4.26 M/mm3 (4.6-6.2); White Blood Count 11.8 K/mm3 (4.4-11.0)
[2023-10-31 22:50] LABS: AST(SGOT) 19 U/L (15-37); Alanine Aminotransfer ALT/SGPT 38 U/L (16-61); Albumin, Serum 3.8 g/dL (3.2-5.0); Alkaline Phosphatase 67 U/L (45-117); Anion Gap 9 (5-15); BUN 24 mg/dL (7-18); BUN/Creat Ratio 21.2 RATIO (10-20); Calcium,Total 9.8 mg/dL (8.5-10.1); Chloride 100 mmol/L (98-107); Creatinine, Serum 1.13 mg/dL (0.70-1.30); EST Glomerular Filtration Rate 68 mL/min (>60); Est Glom Filt Rate - Afr Amer 83 mL/min (>60); Globulin 3.7 g/dL (2.2-4.2); Glucose 116 mg/dL (74-106); Potassium 4.1 mmol/L (3.5-5.1); Protein, Total 7.5 g/dL (6.4-8.2); Sodium Level 139 mmol/L (136-145)
[2023-10-31 22:55] LABS: BNP,B-Type NATRIURETIC PEPTIDE 498.5 pg/mL (0-100)
== END | disposition home or self-care (01) ==
PROVIDERS: PCP Nurse Practitioner; Referring Provider Nurse Practitioner; Visit Provider Nurse Practitioner
DX: D53.0 Protein deficiency anemia (principal); I50.42 Chronic combined systolic (congestive) and diastolic (congestive) heart failure; I48.0 Paroxysmal atrial fibrillation; R06.02 Shortness of breath
CPT/HCPCS: 80053; 83880; 85025

== ENCOUNTER → 2024-01-30 | Outpatient (CLI) | payer MEDICARE, MEDICAID, SELFPAY | END | disposition home or self-care (01) | PROVIDERS: PCP Nurse Practitioner; Visit Provider Nurse Practitioner | DX: R30.0 Dysuria (principal); R33.9 Retention of urine, unspecified | CPT/HCPCS: 87086 ==